=== PATIENT | male | born 1940 | race Caucasian/White ===

== ENCOUNTER → 2017-08-30 09:03 | Outpatient (CLI) | payer MEDICARE, SELFPAY ==
[2017-08-30 10:51] LABS: ALB/GLOB Ratio 0.9 RATIO (0.9-2.4); AST(SGOT) 18 U/L (15-37); Alanine Aminotransfer ALT/SGPT 28 U/L (16-61); Albumin, Serum 3.6 g/dL (3.2-5.0); Alkaline Phosphatase 79 U/L (45-117); Anion Gap 11 (5-15); BUN 30 mg/dL (7-18); BUN/Creat Ratio 17.9 RATIO (10-20); Calcium,Total 9.1 mg/dL (8.5-10.1); Chloride 98 mmol/L (98-107); Cholesterol 156 mg/dL (200); Creatinine, Serum 1.68 mg/dL (0.70-1.30); EST Glomerular Filtration Rate 42 mL/min (>60); Est Glom Filt Rate - Afr Amer 51 mL/min (>60); Globulin 4.1 g/dL (2.2-4.2); Glucose 198 mg/dL (74-106); High Density Lipoprotein 42 mg/dL; Potassium 3.1 mmol/L (3.5-5.1); Protein, Total 7.7 g/dL (6.4-8.2); Sodium Level 137 mmol/L (136-145); Triglycerides 131 mg/dL; Very Low Density Lipoprotein 26 mg/dL (5-40)
[2017-08-30 13:18] LABS: Microalbumin,Random Urine 42.4 mg/L (NO RANGE EST.); Microalbumin:Creatinine Ratio 27.5 mg/g CRE (<30 mg/g CRE)
== END ==
PROVIDERS: Family Provider Family Medicine; PCP Family Medicine; Visit Provider Family Medicine
DX: E11.9 Type 2 diabetes mellitus without complications (principal)
CPT/HCPCS: 36415; 80053; 80061; 82043; 82570

== ENCOUNTER → 2017-09-27 09:15 | Outpatient (CLI) | payer MEDICARE, SELFPAY ==
[2017-09-27 10:48] LABS: Anion Gap 8 (5-15); BUN 29 mg/dL (7-18); BUN/Creat Ratio 17.4 RATIO (10-20); Chloride 103 mmol/L (98-107); Creatinine, Serum 1.67 mg/dL (0.70-1.30); EST Glomerular Filtration Rate 42 mL/min (>60); Est Glom Filt Rate - Afr Amer 51 mL/min (>60); Glucose 141 mg/dL (74-106); Potassium 3.7 mmol/L (3.5-5.1); Sodium Level 141 mmol/L (136-145)
== END ==
PROVIDERS: Family Provider Family Medicine; PCP Family Medicine; Visit Provider Family Medicine
DX: E87.6 Hypokalemia (principal)
CPT/HCPCS: 36415; 80048

== ENCOUNTER → 2018-02-27 09:16 | Outpatient (CLI) | payer MEDICARE, SELFPAY ==
[2018-02-27 10:28] LABS: Hemoglobin A1c 6.5 % (4.2-6.3)
[2018-02-27 10:32] LABS: Anion Gap 11 (5-15); BUN 29 mg/dL (7-18); BUN/Creat Ratio 15.7 RATIO (10-20); Calcium,Total 9.3 mg/dL (8.5-10.1); Chloride 105 mmol/L (98-107); Cholesterol 160 mg/dL (200); Creatinine, Serum 1.85 mg/dL (0.70-1.30); EST Glomerular Filtration Rate 38 mL/min (>60); Est Glom Filt Rate - Afr Amer 46 mL/min (>60); Glucose 189 mg/dL (74-106); High Density Lipoprotein 42 mg/dL; Potassium 3.7 mmol/L (3.5-5.1); Sodium Level 142 mmol/L (136-145); Triglycerides 191 mg/dL; Very Low Density Lipoprotein 38 mg/dL (5-40)
== END ==
PROVIDERS: Family Provider Family Medicine; PCP Family Medicine; Visit Provider Family Medicine
DX: E11.9 Type 2 diabetes mellitus without complications (principal)
CPT/HCPCS: 36415; 80048; 80061; 83036

== ENCOUNTER → 2019-09-02 11:47 | Outpatient (CLI) | payer MEDICARE, SELFPAY ==
[2019-09-02 14:29] LABS: PSA,Total - Annual Screen 0.82 ng/mL (0.00-4.00)
== END ==
PROVIDERS: PCP Family Medicine; Referring Provider Family Medicine; Visit Provider Family Medicine
DX: R35.0 Frequency of micturition (principal)
CPT/HCPCS: 36415; 84153; G0103

== ENCOUNTER → 2019-10-01 09:02 | Outpatient (CLI) | payer MEDICARE, SELFPAY ==
[2019-09-30 09:05] VITALS: BMI 29.0
[2019-09-30 11:11] LABS: Anion Gap 6 (5-15); BUN 30 mg/dL (7-18); BUN/Creat Ratio 19.1 RATIO (10-20); Chloride 106 mmol/L (98-107); Creatinine, Serum 1.57 mg/dL (0.70-1.30); EST Glomerular Filtration Rate 45 mL/min (>60); Est Glom Filt Rate - Afr Amer 55 mL/min (>60); Glucose 162 mg/dL (74-106); Potassium 3.8 mmol/L (3.5-5.1); Sodium Level 141 mmol/L (136-145); Thyroid Stim Hormone (TSH) 2.03 uIU/mL (0.358-3.74)
== END ==
PROVIDERS: PCP Family Medicine; Referring Provider Internal Medicine Cardiovascular Disease; Visit Provider Internal Medicine Cardiovascular Disease
DX: E78.5 Hyperlipidemia, unspecified (principal); I49.9 Cardiac arrhythmia, unspecified
CPT/HCPCS: 36415; 80048; 84443; 93225; 93226

== ENCOUNTER → 2019-10-09 13:56 | Outpatient (CLI) | payer MEDICARE, SELFPAY ==
[2019-09-30 09:05] VITALS: BMI 29.0
--- NOTE | 2019-10-09 14:01 | ECHOD_ITS ---
Reason For Study: Arrhythmia Procedure This was a 2D Doppler, Color Flow transthoracic echocardiogram. Exam performed in department. Left Ventricle Normal LV size. Left ventricular systolic function is normal. The estimated ejection fraction is 65 %. Stage 1 diastolic dysfunction. Right Ventricle Normal RV size. Normal systolic function. Atria Normal left atrium. Normal right atrium. Mitral Valve There is mild mitral annular calcification. Mild (1+) eccentric mitral valve insufficiency. Tricuspid Valve Normal tricuspid valve. Mild tricuspid valve insufficiency. Pulmonary artery systolic pressure is 30 mmHg. Aortic Valve Trisinus/trileaflet aortic valve. Mild focal aortic valve calcification. Mild (1+) eccentric aortic valve insufficiency. Pulmonic Valve The pulmonic valve is not well visualized. Great Vessels Calcified aortic root. The pulmonary artery is normal size. Normal inferior vena cava. Pericardium/Pleural No pericardial effusion. MMode/2D Measurements & Calculations LVIDd: 4.9 cm IVSd: 1.1 cm Ao root diam: 2.9 cm LVIDs: 3.5 cm LVPWd: 1.3 cm RVDd: 3.1 cm FS: 27.9 % LAV(MOD-bp): 30.4 ml LVAd ap4: 21.7 cm2 SV(MOD-sp4): 28.5 ml LAV(MOD-bp) Indexed: 14.9 ml/m2 EDV(MOD-sp4): 48.0 ml LAV(MOD-sp2): 26.2 ml EDV(sp4-el): 49.7 ml LAV(MOD-sp4): 32.4 ml LVAs ap4: 12.0 cm2 ESV(MOD-sp4): 19.5 ml ESV(sp4-el): 18.3 ml EF(MOD-sp4): 59.3 % EF(sp4-el): 63.1 % SV(sp4-el): 31.4 ml LA A4 area: 13.8 cm2 LA dimension(2D): 4.2 cm RA A4 area: 15.3 cm2 Doppler Measurements & Calculations MV E max noah: 60.8 cm/sec Lat Peak E' Noah: 9.5 cm/sec Med Peak E' Noah: 5.5 cm/sec MV A max noah: 94.5 cm/sec E/E' lat: 6.4 E/E' med: 11.1 MV E/A: 0.64 Ao V2 max: 195.5 cm/sec LV V1 max: 112.6 cm/sec PA V2 max: 114.7 cm/sec Ao max P.3 mmHg LV V1 max P.1 mmHg Ao V2 mean: 145.2 cm/sec Ao mean P.2 mmHg Ao V2 VTI: 36.3 cm TR max noah: 260.5 cm/sec TR max P.1 mmHg Interpretation Summary Normal LV size. Left ventricular systolic function is normal. The estimated ejection fraction is 65 %. Stage 1 diastolic dysfunction. There is mild mitral annular calcification. Calcified aortic root. Ordering Physician: Mikhail Siu Referring Physician: Vladimir Healy Performed By: Ofelia Jang, KEO, RVT
== END ==
PROVIDERS: PCP Family Medicine; Referring Provider Internal Medicine Cardiovascular Disease; Visit Provider Internal Medicine Cardiovascular Disease
DX: R00.2 Palpitations (principal); I49.9 Cardiac arrhythmia, unspecified
CPT/HCPCS: 93306

== ENCOUNTER → 2019-11-23 09:50 | Outpatient (CLI) | payer MEDICARE, SELFPAY ==
[2019-09-30 09:05] VITALS: BMI 29.0
[2019-11-23 09:54] LABS: Bacteria 0 SEEN /hpf (None Seen); Mucous, Urine 0 SEEN /hpf (<or=2+); Red Blood Cells-Urine 0 SEEN /hpf (0-5); Squamous Epithelial Cells - UA 0 SEEN /hpf (0-5)
[2019-11-23 12:29] LABS: Color, Urine Yellow (Yellow); Glucose, Dipstick 250 mg/dl (Normal); Ketone-Dipstick Negative (Negative); Leukocyte Esterase-Dipstick Negative /ul (Negative); Nitrite-Dipstick Negative (Negative); Occult Blood-Urine Negative /ul (Negative); Protein-Dipstick Negative (Negative); Urine Bilirubin Dipstick Negative (Negative); Urine Clarity Clear (Clear); Urine Urobilinogen Normal (Normal)
[2019-11-23 12:37] LABS: White Blood Cells 0-5 SEEN /hpf (0-5)
[2019-11-23 12:42] LABS: Anion Gap 6 (5-15); BUN 30 mg/dL (7-18); BUN/Creat Ratio 18.2 RATIO (10-20); Calcium,Total 9.2 mg/dL (8.5-10.1); Chloride 105 mmol/L (98-107); Cholesterol 164 mg/dL (200); Creatinine, Serum 1.65 mg/dL (0.70-1.30); EST Glomerular Filtration Rate 43 mL/min (>60); Est Glom Filt Rate - Afr Amer 52 mL/min (>60); Glucose 145 mg/dL (74-106); High Density Lipoprotein 41 mg/dL; Potassium 3.7 mmol/L (3.5-5.1); Sodium Level 140 mmol/L (136-145); Triglycerides 161 mg/dL; Very Low Density Lipoprotein 32 mg/dL (5-40)
[2019-11-23 12:54] LABS: Hemoglobin A1c 7.2 % (4.2-6.3)
== END ==
PROVIDERS: PCP Family Medicine; Visit Provider Family Medicine
DX: E11.9 Type 2 diabetes mellitus without complications (principal); R35.8 Other polyuria
CPT/HCPCS: 36415; 80048; 80061; 81001; 83036

== ENCOUNTER → 2020-03-14 10:07 | Outpatient (CLI) | payer MEDICARE, SELFPAY ==
[2020-01-07 10:27] VITALS: BMI 28.9
--- NOTE | 2020-03-14 10:12 | RAD_ITS ---
STUDY: X-RAY CHEST REASON FOR EXAM: Male, 79 years old. sob TECHNIQUE: PA and lateral views of the chest. COMPARISON: Prior study of 12/24/2011 FINDINGS: There are fibrotic changes of the left lung base. There is no demonstrated pleural abnormality. Normal size heart. Normal mediastinum and daphne. Normal visualized pulmonary arteries. There are calcified plaques of the thoracic aorta. There are diffuse degenerative changes of the visualized thoracic spine. Normal visualized ribs, clavicles, and shoulders. There is no demonstrated abnormality of the visualized soft tissue structures of the upper abdomen. RAD/Chest PA and Lateral IMPRESSION: Minimal linear fibrosis of the left lung base. Calcified plaques of the thoracic aorta. Degenerative changes of the thoracic spine. No acute cardiopulmonary disease process is seen. Chest findings are stable in the interval. Electronically Signed: Hong Marie MD at 23:53 EDT , Service support ,
== END ==
PROVIDERS: PCP Family Medicine; Referring Provider Family Medicine; Visit Provider Family Medicine
DX: R06.02 Shortness of breath (principal)
CPT/HCPCS: 71046

== ENCOUNTER 2020-04-18 10:39 | Inpatient (IN) | payer MEDICARE, SELFPAY ==
[2020-01-07 10:27] VITALS: BMI 28.9
[2020-04-18] VITALS (15 sets, daily range): BP systolic 100–127; BP diastolic 55–80; PULSE 96–109; RESP 18–27; TEMP 36.6–37.3; O2SAT 92–96; BMI 29.5; BMI 28.9; BMI 29.0
--- NOTE | 2020-04-18 11:27 | EKG12_ITS ---
Test Reason : CP Blood Pressure : / mmHG Vent. Rate : 108 BPM Atrial Rate : 108 BPM P-R Int : 168 ms QRS Dur : 128 ms QT Int : 362 ms P-R-T Axes : 023 -31 116 degrees QTc Int : 485 ms Sinus tachycardia Left axis deviation Non-specific intra-ventricular conduction block Septal infarct , age undetermined T wave abnormality, consider lateral ischemia Abnormal ECG Confirmed by CHIQUITA BAUTISTA, NEVIN ([id number]), editorial manager DINO MARTINS ([id number]) on 04/20/2020 8:29:35 AM Referred By: Confirmed By:NEVIN PORRAS MD
--- NOTE | 2020-04-18 11:29 | ED.VISSUMM ---
- ER Visit Summary Date of Service: 04/18/20 Chief Complaint: Chest pain and shortness of breath History of Present Illness: The patient is a 79 M who presents with chest pain and shortness of breath that is been getting worse over the past 2 weeks. Patient states it is worse with any exertion. Patient states that improves with rest. Patient states the pain is a dull aching. Patient states it is in the substernal area. Patient states it has been constant. Patient states he saw his primary care physician for this and he is scheduled for an outpatient stress test. Patient states the pain became worse and he was unable to wait until his outpatient stress test. Physical Examination: Vital signs are stable except for tachycardia of 109 and tachypnea of 27. Patient is afebrile. Patient is in no acute distress. Oral mucosa is pink and moist. Neck is supple. Trachea is midline. There is no JVD. Heart was regular and tachycardic. Lungs are clear and equal bilaterally. Abdomen is soft. Bowel sounds are normal. There is no tenderness. Extremities are intact. There is no calf tenderness or edema. Cranial nerves II through XII are intact. There are no focal motor or sensory deficits. Test Results: EKG showed sinus tachycardia with a rate of 108. There is some T wave inversion in leads I and aVL which are slightly worse than previous EKG dated 08/16/2010. CBC was within normal limits. Basic metabolic profile showed a elevated BUN and creatinine of 29 and 1.86. Potassium was 3.3. Troponin was elevated at 1.68. D-dimer was elevated at 1.39. Portable chest x-ray was obtained. Emergency Department Course and Treatment: Patient was given aspirin and sublingual nitroglycerin here. Due to the elevated d-dimer, patient was given a dose of Lovenox here. Patient was also placed on nitroglycerin paste. Patient has a HEART score of 8. Case was discussed with the hospitalist. He discussed the case with Dr. Siu. He recommended obtaining a CTA of the chest and giving the patient IV fluids. He will be to evaluate the patient. Patient understood and was agreeable with the plan. All questions were answered. Disposition: Admit to hospital Impression: 1. Non-STEMI 2. Elevated d-dimer This note was generated with [employer] software. It may contain incorrect words, spelling, and punctuation that were not noted in review of the chart prior to signing ED Disposition - Plan for ED Patient: Disposition: Acute Care Hospital [facility] Diagnosis: Non-STEMI (non-ST elevated myocardial infarction), Elevated d-dimer Referrals: Vladimir Healy MD [Primary Care Provider] -
[2020-04-18 11:37] LABS: Absolute Lymphocyte Count 0.43 X10^3/uL (0.83-4.51); Absolute Neutrophil Count 7.5 X10^3/uL (2.0-7.7); Basophil# 0.02 X10^3/uL; Basophil% 0.2 % (0-1); Eosinophil# 0.11 X10^3/uL; Eosinophils% 1.2 % (0-5); Hematocrit 42.3 % (40-54); Lymphocyte # 0.43 X10^3/ul (4.0); Lymphocyte % 4.7 % (19-41); Mean Corp Hgb Conc 33.1 g/dL (32-36); Mean Corpuscular Hgb 30.4 pg (27.0-32.0); Mean Platelet Vol. 10.4 fl (6.2-12.0); Monocyte# 1.13 X10^3/uL; Monocyte% 12.3 % (0-10); NRBC Flagged by Analyzer 0 % (0-5); Neutrophil # 7.49 X10^3/uL (2.7-7.7); Neutrophil % 81.2 % (47-70); POSITIVE DIFFERENTIAL YES; Platelet Count 183 K/mm3 (150-450); RBC Distribution Width CV 13.9 % (11.6-14.6); RBC Distribution Width SD 46.6 fl (35.1-43.9); White Blood Count 9.2 K/mm3 (4.4-11.0)
[2020-04-18 11:38] LABS: Differential Indicated SCAN CRITERIA MET
[2020-04-18 11:41] LABS: Prothrombin Time (Protime)PT. 12.5 SECONDS (11.7-14.9)
[2020-04-18 11:42] LABS: Partial Thromboplast Time 32.4 Seconds (24.1-36.2)
[2020-04-18 11:46] LABS: D-Dimer Quantitative (DVT/PE) 1.39 FEU/ug/m (0.27-0.49)
[2020-04-18 11:52] LABS: Anion Gap 7 (5-15); BUN 29 mg/dL (7-18); BUN/Creat Ratio 15.6 RATIO (10-20); Calcium,Total 9.2 mg/dL (8.5-10.1); Chloride 106 mmol/L (98-107); Creatinine, Serum 1.86 mg/dL (0.70-1.30); EST Glomerular Filtration Rate 37 mL/min (>60); Est Glom Filt Rate - Afr Amer 45 mL/min (>60); Estimated Creatinine Clearance 30.13 ml/min; Glucose 166 mg/dL (74-106); Potassium 3.3 mmol/L (3.5-5.1); Sodium Level 139 mmol/L (136-145)
[2020-04-18 11:59] LABS: Platelet Estimate ADEQUATE (ADEQ); Red Cell Morphology NORM C+C NORMAL (NORM C&C)
--- NOTE | 2020-04-18 12:14 | NURSING ---
HOSPITALIST PAGED DR PORRAS PAGED
[2020-04-18] MEDS: Aspirin 81 MG TAB.CHEW 324 MG PO (12:16)
[2020-04-18] MEDS: Enoxaparin 100 MG/ML Syringe 90 MG SC ×2 (12:17→22:29)
[2020-04-18] MEDS: Nitroglycerin SL (ED/IMG/CATH) 0.4 MG TABLET SUBLINGUAL (12:19)
[2020-04-18] MEDS: Nitroglycerin Oint 1 INCH PACKET TRANSDERM. (12:21)
--- NOTE | 2020-04-18 12:29 | CT_ITS ---
STUDY: CTA CHEST REASON FOR EXAM: Male, 79 years old. CP X 1 WEEK. INCREASE SOB WORSE ON EXERTION. RADIATION DOSAGE (If Supplied By Facility): CTDIvol = ( 14.98 ) mGy, DLP = ( 438.63 ) mGycm TECHNIQUE: The examination was performed with the intravenous administration of IV 100mL Isovue-370. Post-processing of the angiographic images was performed, with multiplanar reformation and 3D reconstruction. Individualized dose optimization techniques were used for this CT. COMPARISON: None. FINDINGS: Normal enhancement of the main pulmonary artery and right and left pulmonary arteries. Normal enhancement of the bilateral peripheral pulmonary arteries. There is no demonstrated pulmonary embolism. There is atherosclerotic calcification of the aortic arch with tortuosity. There is no demonstrated aortic dissection. There are calcifications of the coronary arteries. Cardiomegaly. There are visualized mediastinal lymph nodes, which are within normal size limits, and with normal morphology. Calcified subcarinal lymph node. Normal hilar regions. Normal visualized trachea and bronchi. The lungs are well expanded. Small bilateral pleural effusions with atelectasis at the lung bases. Increased interstitial markings in both lungs suggestive of mild degree of CHF. Normal pleura. Normal chest wall structures. There are degenerative changes of thoracic spine. Normal visualized upper abdomen. CT/CTA Chest W/WO Contrast IMPRESSION: Small bilateral pleural effusions with the bibasilar atelectasis superimposed on mild degree of CHF. Electronically Signed: Matt Aaron, at 13:52 EDT , Service support ,
--- NOTE | 2020-04-18 12:39 | NURSING ---
PCU JAMES NON STEMI, ELEVATED DDIMER
--- NOTE | 2020-04-18 12:55 | RAD_ITS ---
STUDY: X-RAY CHEST REASON FOR EXAM: Male, 79 years old. CHEST PAIN FOR MORE THAN A WEEK. SOB AND PAIN THAT INCREASES WITH EXERTION. TECHNIQUE: Single AP portable view of the chest. COMPARISON: Comparison is made with prior study dated 03/14/2020. FINDINGS: EKG electrodes are seen. Since prior study, there is evidence of increased interstitial markings in both lungs with mild degree of vascular congestion suggestive of CHF. Blunting of the costophrenic angles. There is borderline cardiomegaly. Normal mediastinum and daphne. Normal visualized pulmonary arteries. There is atherosclerotic calcification of the aortic arch with tortuosity. There are diffuse degenerative changes of the visualized thoracic spine. There is degenerative osteoarthritis of the bilateral shoulders. There is no demonstrated abnormality of the visualized soft tissue structures of the upper abdomen. RAD/Chest 1 View (Portable) IMPRESSION: Findings suggestive of a CHF. Electronically Signed: Matt Aaron, at 13:49 EDT , Service support ,
--- NOTE | 2020-04-18 14:21 | ECHOCS_ITS ---
Reason For Study: Dyspnea/SOB Procedure This was a 2D Doppler, Color Flow transthoracic echocardiogram. Contrast injection was performed. Exam performed portable in patient room. Left Ventricle Severely dilated left ventricle. The estimated ejection fraction is 15 %. Stage 2 diastolic dysfunction. There are regional wall motion abnormalities as specified. [place] : Akinetic. Mid- Anterior : Akinetic. Mid-Lateral : Hypokinetic. Basal inferoseptal: Hypokinetic. The rest of the wall segments are normal. Right Ventricle Normal RV size. Normal systolic function. Atria Normal left atrium. Normal right atrium. Mitral Valve Normal mitral valve. Mild-Moderate (1-2+) eccentric mitral valve insufficiency. Tricuspid Valve Normal tricuspid valve. Mild to moderate (1-2+) tricuspid valve insufficiency. Pulmonary artery systolic pressure is 43 mmHg. Aortic Valve Trisinus/trileaflet aortic valve. Mild-Moderate (1-2+) eccentric aortic valve insufficiency. Pulmonic Valve Normal pulmonic valve. Great Vessels Normal aortic root. The pulmonary artery is normal size. Normal inferior vena cava. Pericardium/Pleural No pericardial effusion. Medication Diluted definity 2ml given slow IV push to enhance endocardial definition. MMode/2D Measurements & Calculations LVIDd: 6.4 cm IVSd: 1.1 cm Ao root diam: 2.7 cm LVIDs: 5.9 cm LVPWd: 1.1 cm RVDd: 3.3 cm FS: 8.7 % LAV(MOD-bp): 54.5 ml LVAd ap4: 47.2 cm2 SV(MOD-sp4): 31.4 ml LAV(MOD-bp) Indexed: 27.6 ml/m2 EDV(MOD-sp4): 199.1 ml LAV(MOD-sp2): 59.8 ml EDV(sp4-el): 207.3 ml LAV(MOD-sp4): 46.3 ml LVAs ap4: 42.1 cm2 ESV(MOD-sp4): 167.8 ml ESV(sp4-el): 175.4 ml EF(MOD-sp4): 15.8 % EF(sp4-el): 15.4 % SV(sp4-el): 31.9 ml LA A4 area: 16.8 cm2 LA dimension(2D): 4.6 cm RA A4 area: 11.9 cm2 Doppler Measurements & Calculations MV E max noah: 72.5 cm/sec Lat Peak E' Noah: 5.4 cm/sec Med Peak E' Noah: 3.3 cm/sec MV A max noah: 54.7 cm/sec E/E' lat: 13.4 E/E' med: 22.0 MV E/A: 1.3 Ao V2 max: 167.2 cm/sec LV V1 max: 82.3 cm/sec PA V2 max: 92.1 cm/sec Ao max P.2 mmHg LV V1 max P.7 mmHg Ao V2 mean: 130.6 cm/sec Ao mean P.2 mmHg Ao V2 VTI: 29.5 cm TR max noah: 313.2 cm/sec TR max P.2 mmHg Interpretation Summary Severely dilated left ventricle. The estimated ejection fraction is 15 %. Stage 2 diastolic dysfunction. Pulmonary artery systolic pressure is 43 mmHg. Contrast injection was performed. Ordering Physician: Naresh Valdivia Referring Physician: Vladimir Healy Performed By: Ofelia Jang, KEO, RVT
--- NOTE | 2020-04-18 14:54 | HP.PCM_ITS ---
Problem List (1) Non-STEMI (non-ST elevated myocardial infarction) Status: Acute (2) Elevated d-dimer Status: Acute (3) Premature ventricular contractions Status: Chronic (4) Palpitations Status: Chronic (5) Essential (primary) hypertension Status: Chronic (6) Hyperlipidemia Status: Chronic History of Present Illness Date of Admission: 04/18/20 Chief Complaint: Chest pain. The patient is a 79 year old M who presents emergency room due to chest pain and shortness of breath. Patient states this has been ongoing for the past 3 weeks and worse with exertion. He states his symptoms have worsened over the past 3 weeks and he now has chest pressure and increased shortness of breath with minimal activity. He reports cough overnight. Denies fever, chills. Patient states he thought his shortness of breath was related to his asthma. He denies weight gain or lower extremity swelling. Denies history of heart disease. He has a past medical history of hypertension, hyperlipidemia, type 2 diabetes mellitus, BPH, PVCs. Past Medical History Past Medical History (Chronic Problems): Chronic Problems (Last Reviewed 01/07/20 @ 10:[address] Mikhail Siu MD) Premature ventricular contractions (Chronic) Palpitations (Chronic) Essential (primary) hypertension (Chronic) Hyperlipidemia (Chronic) Medical History: Medical History (Last Reviewed 01/07/20 @ 10:[address] Mikhail Siu MD) Premature ventricular contractions (Chronic) I49.3 Palpitations (Chronic) R00.2 Essential (primary) hypertension (Chronic) I10 Hyperlipidemia (Chronic) E78.5 Type 2 diabetes mellitus without complication E11.9 Irregular heart rate (Resolved) I49.9 Allergies No Known Allergies Allergy (Verified 04/18/20 10:47) Home Medications: Ambulatory Orders Medication Instructions Recorded albuterol sulfate 90 mcg/actuation 2 puff INHALATION Q6H PRN 09/17/19 aerosol inhaler glimepiride 4 mg tablet 4 mg PO DAILY 09/17/19 metformin 500 mg tablet 500 mg PO BID 09/17/19 potassium chloride 10 mEq 10 meq PO DAILY 09/17/19 capsule,extended release tamsulosin 0.4 mg capsule 0.4 mg PO DAILY 09/17/19 triamterene 37.5 1 tab PO DAILY 09/17/19 mg-hydrochlorothiazide 25 mg tablet aspirin 81 mg tablet,delayed 81 mg PO DAILY@0800 09/30/19 release Atorvastatin Calcium [Lipitor] 40 mg PO QHS 04/18/20 Surgical History: Surgical History (Last Reviewed 04/18/20 @ 14:55 by Richa Hatfield NP, CL[facility] CLASSER-C) H/O shoulder surgery Z98.890 History of hernia surgery Z98.890, Z87.19 History of tonsillectomy Z90.89 Hx of cataract surgery Z98.49 Psychiatric History: No pertinent psych hx Lives: Spouse/ Significant Other Smoking Status: Never smoker Tobacco Use: Non-smoker Alcohol: None Drugs: None - *Family History Maternal Family History: Family History (Last Reviewed 01/07/20 @ 10:[address] Mikhail Siu MD) Father CAD (coronary artery disease) Cancer Sister Cancer History Items: - - Denies known maternal medical history including cardiac history. Paternal Family History: Family History (Last Reviewed 01/07/20 @ 10:[address] Mikhail Siu MD) Father CAD (coronary artery disease) Cancer Sister Cancer Review of Systems Constitutional: Denies: Chills, Fever, Weight Change HEENT: Denies: Head Aches, Sinus Congestion, Sinus Drainage Cardiovascular: Reports: Chest Pain Respiratory: Reports: Cough, Shortness of Breath. Denies: Sputum production Gastrointestinal: Denies: Abdominal Pain, Nausea, Vomiting Genitourinary: Denies: Dysuria Musculoskeletal: Denies: Joint Pain, Joint Tenderness Skin: Denies: Rash, Wounds Neurological: Denies: Numbness, Tingling, Focal weakness Psychiatric: Denies: Anxiety, Depression, Homicidal Ideations, Suicidal Ideations Hematologic/ Lymphatic: Denies: Easy Bruising, Easy Bleeding VTE Information - Inpt Only VTE Present on Admission: No VTE Mechan Device Prophylaxis: None VTE Pharm Prophylaxis ordered?: Yes Patient Problems: Active and Suspected Problems (Last Reviewed 01/07/20 @ 10:[address] Mikhail Siu MD) Non-STEMI (non-ST elevated myocardial infarction) (Acute) Elevated d-dimer (Acute) - Physical Exam Vitals/I&O's: Vital Signs Temp Pulse Resp BP Pulse Ox 98.9 F 104 H 20 H 126/70 H 94 04/18/20 14:27 04/18/20 14:27 04/18/20 14:27 04/18/20 14:27 04/18/20 14:36 Oxygen Flow Rate (L/min) 3.5 Oxygen Delivery Method Nasal Cannula Weight: 190 lb 8 oz Body Mass Index (BMI) 28.9 Intake and Output for Last 24 Hours 04/16/20 04/17/20 04/18/20 23:59 23:59 23:59 Intake Total 500 / 500 Balance 500 / 500 General: Alert, Oriented x3, Cooperative HEENT: Atraumatic, PERRLA, EOMI, Normocephalic Neck: Supple, No JVD, Negative Carotid Bruits Lungs: Clear to auscultation, Diminished Cardiovascular: Regular Rhythm, No murmurs, Tachycardic Abdomen: Bowel Sounds Present, Soft, Non Tender, Non-Distended Extremities: No clubbing, No cyanosis, No edema Skin: No rashes, No breakdown Musculoskeletal: No Tenderness to Palpation of Joints or Extremities Neurological: Cranial nerves II-XII grossly intact, Neuro grossly intact Psych/Mental Status: Normal Affect, Appropriate Laboratory Results 04/18/20 10:45: WBC 9.2, RBC 4.60, Hgb 14.0, Hct 42.3, MCV 92.0, MCH 30.4, MCHC 33.1, RDW Std Deviation 46.6 H, RDW Coeff of Kranthi 13.9, Plt Count 183, MPV 10.4, Immature Gran % (Auto) 0.400, Neut % (Auto) 81.2 H, Lymph % (Auto) 4.7 L, [place] % (Auto) 12.3 H, Eos % (Auto) 1.2, Baso % (Auto) 0.2, Absolute Neuts (auto) 7.5, Absolute Lymphs (auto) 0.43 L, Nucleated RBC % 0, Differential Comment , Platelet Estimate ADEQUATE, RBC Morphology NORM C+C 04/18/20 10:45: Sodium 139, Potassium 3.3 L, Chloride 106, Carbon Dioxide 26.0, Anion Gap 7, BUN 29 H, Creatinine 1.86 H, Estim Creat Clear Calc 30.13, Est GFR (MDRD) Af Amer 45 L, Est GFR (MDRD) Non-Af 37 L, BUN/Creatinine Ratio 15.6, Glucose 166 H, Calcium 9.2, Troponin I 1.680 H* 09/28/20 10:45: PT 12.5, INR 1.0, APTT 32.4, D-Dimer Quant (PE/DVT) 1.39 H* 04/18/20 14:50: B-Natriuretic Peptide Pending 04/18/20 14:50: Troponin I Pending Current Medications Acetaminophen (Tylenol) 650 mg PO Q6H PRN PRN PRN Reason: Pain Score 1-10/Temp > 100.7 F Aspirin (Ecotrin) 81 mg PO DAILY@0800 [facility] Atorvastatin Calcium (Lipitor) 40 mg PO QHS [facility] Enoxaparin Sodium (Lovenox) 90 mg SC Q12 [facility] Furosemide (Lasix) 20 mg IV BID@1000,1800 [facility] Glimepiride (Amaryl) 4 mg PO DAILYCM [facility] Morphine Sulfate () 4 mg IV Q3H PRN PRN PRN Reason: Pain Score 1-10/10 Sodium Chloride () 10 - 40 ml IV UD PRN PRN Reason: SALINE FLUSH Tamsulosin HCl (Flomax) 0.4 mg PO DAILY@1730 [facility] Assessment/Plan All Active Problems (Last Reviewed 01/07/20 @ 10:[address] Mikhail Siu MD) Non-STEMI (non-ST elevated myocardial infarction) (Acute) Elevated d-dimer (Acute) Irregular heart rate (Resolved) 1. NSTEMI-cardiology consulted. Continue aspirin, statin, therapeutic Lovenox. Add carvedilol 3.125 mg twice daily. D-dimer elevated. CTA negative for PE. Echocardiogram ordered. Plan for cardiac catheterization in a.m. 2. Acute heart failure with preserved ejection fraction- Echocardiogram September 2019 demonstrated an EF of 65%, stage I diastolic dysfunction. CTA demonstrates small bilateral pleural effusions, mild CHF. BNP 1557. IV Lasix 40 mg twice daily. Strict I&O. Repeat echo ordered as noted above. 3. Chronic kidney disease stage III-slightly above baseline however no acute kidney injury. Trend BMP. 4. Type 2 diabetes mellitus-continue glimepiride. Hold metformin. Accu-Cheks with sliding scale insulin. 5. Hypertension-stable, triamterene/HCTZ on hold. Initiated on carvedilol as noted above. 6. Hyperlipidemia- continue statin. 7. BPH-continue Flomax. DVT prophylaxis- Lovenox sc This patient was seen by BHARATHI Mcdowell under the supervision of Dr. Valdivia.
--- NOTE | 2020-04-18 15:03 | EKG12_ITS ---
Test Reason : C.P. ADMIT Blood Pressure : / mmHG Vent. Rate : 101 BPM Atrial Rate : 101 BPM P-R Int : 170 ms QRS Dur : 118 ms QT Int : 416 ms P-R-T Axes : 018 -11 108 degrees QTc Int : 539 ms Sinus tachycardia with Premature atrial complexes Septal infarct , age undetermined ST & T wave abnormality, consider lateral ischemia Prolonged QT Abnormal ECG Confirmed by RON BAUTISTA, MAL ([id number]), acquisition editor DINO MARTINS ([id number]) on 04/26/2020 9:20:33 AM Referred By: JAVIER Confirmed By:TROY VELASQUEZ MD
--- NOTE | 2020-04-18 15:37 | CASEMGMT ---
According to the [facility] website, the following are in-network tertiary facilities: [facility], [place], [place], [facility], [facility], [place], [facility], and . [facility]
[2020-04-18] MEDS: Furosemide 40 MG/4 ML Vial IV (16:07)
[2020-04-18] MEDS: 0.9% Saline Lock 10 ML Syringe IV (16:07)
[2020-04-18] MEDS: Tamsulosin HCl 0.4 MG Capsule PO (16:10)
[2020-04-18 16:30] LABS: Bedside Glucose 188 mg/dL (70-110)
--- NOTE | 2020-04-18 18:44 | CON.PCM_ITS ---
Reason for Consult Date of Consultation: 04/18/20 Reason for Consultation: Shortness of breath History of Present Illness: The patient is a 79 year old M with a previous history of hypertension premature ventricular complexes who presented to the emergency room after experiencing chest discomfort and shortness of breath which he says has been going on for approximately 3 weeks. He has had some orthopnea some paroxysmal nocturnal dyspnea and a cough. He is not had any pedal edema. He has had no dizziness near syncope or syncope. In the emergency room he was noted to have some renal dysfunction, no definitive EKG changes but an elevated natruretic peptide and d- dimer. He underwent a CT scan of his chest which did not demonstrate any evidence of pulmonary embolism. Due to his abnormal natruretic peptide cardiology was called to see him. He has had a cough which has been somewhat productive. [] Past Medical History Allergies/Adverse Reactions: Allergies No Known Allergies Allergy (Verified 04/18/20 10:47) Home Medications: Ambulatory Orders Medication Instructions Recorded albuterol sulfate 90 mcg/actuation 2 puff INHALATION Q6H PRN 09/17/19 aerosol inhaler glimepiride 4 mg tablet 4 mg PO DAILY 09/17/19 metformin 500 mg tablet 500 mg PO BID 09/17/19 potassium chloride 10 mEq 10 meq PO DAILY 09/17/19 capsule,extended release tamsulosin 0.4 mg capsule 0.4 mg PO DAILY 09/17/19 triamterene 37.5 1 tab PO DAILY 09/17/19 mg-hydrochlorothiazide 25 mg tablet aspirin 81 mg tablet,delayed 81 mg PO DAILY@0800 09/30/19 release Atorvastatin Calcium [Lipitor] 40 mg PO QHS 04/18/20 Past Medical History (Chronic Problems): Chronic Problems (Last Reviewed 01/07/20 @ 10:[address] Mikhail Siu MD) Premature ventricular contractions (Chronic) Palpitations (Chronic) Essential (primary) hypertension (Chronic) Hyperlipidemia (Chronic) Surgical History: cataract Psychiatric History: No pertinent psych hx - *Family History Maternal Family History: Family History (Last Reviewed 01/07/20 @ 10:[address] Mikhail Siu MD) Father CAD (coronary artery disease) Cancer Sister Cancer History Items: - - Denies known maternal medical history including cardiac history. Paternal Family History: Family History (Last Reviewed 01/07/20 @ 10:[address] Mikhail Siu MD) Father CAD (coronary artery disease) Cancer Sister Cancer Lives: Spouse/ Significant Other Smoking Status: Never smoker Tobacco Use: Non-smoker Alcohol: None Drugs: None Review of Systems - Review of Systems General: Reports: Fatigue. Denies: Fever, Night Sweats HEENT: Denies: Vision Change Cardiovascular: Reports: Chest Discomfort, Chest Pressure, Shortness of Breath, Shortness of Breath with Exertion, Orthopnea, PND. Denies: Peripheral Edema, Palpitations, Lightheadedness, Dizziness, Near Syncope, Syncope Respiratory: Denies: Cough, Sputum Production, Hemoptysis Gastrointestinal: Denies: Hematemesis, Hematochezia, Melena Genitourinary: Denies: Dysuria, Hematuria Muscoloskeletal: Denies: Myalgias Skin: Denies: Rash Neurological: Denies: Dizziness Psychiatric: Denies: Anxiety Endocrine: Denies: Heat Intolerance Hematologic/ Lymphatic: Denies: Lymph Node Enlargement Subjectve: Pleasant gentleman in no distress Objective: Vital Signs Temp Pulse Resp BP Pulse Ox 99.1 F 109 H 20 H 105/66 95 04/18/20 17:57 04/18/20 17:57 04/18/20 17:57 04/18/20 17:57 04/18/20 17:57 Oxygen Flow Rate (L/min) 4 Oxygen Delivery Method Nasal Cannula Weight: 190 lb 8 oz Body Mass Index (BMI) 28.9 Intake and Output for Last 24 Hours 04/16/20 04/17/20 04/18/20 23:59 23:59 23:59 Intake Total 1140 / 1140 Output Total 650 / 650 Balance 490 / 490 General: Awake, Alert, Oriented x 3 HEENT: PERRL, EOMI, Sclera Non Icteric Neck: Supple, Good ROM, No Lymph Node Enlargement Lungs: Diminished Mert Bases Cardiovascular: Regular Rhythm, Normal S1, Normal S2, No Murmurs, No Rubs, No Gallops Vascular: No Carotid Bruits, Normal Femoral Pulses, Normal Radial Pulses, Normal Dorsalis Pedal Pulse, Normal Posterior Tibial Pulses Abdomen: Bowel Sounds Present, Soft, Non Tender, No HSM, No Organomegaly Extremities: No Cyanosis, No Clubbing, No edema Musculoskeletal: No Erythema Lymphatic: No Lymph Node Enlargement Neurological: No Focal Motor or Sensory Deficit Psych/Mental Status: Appropriate 04/18/20 10:45: WBC 9.2, RBC 4.60, Hgb 14.0, Hct 42.3, MCV 92.0, MCH 30.4, MCHC 33.1, Plt Count 183, MPV 10.4, Immature Gran % (Auto) 0.400, Neut % (Auto) 81.2 H, Lymph % (Auto) 4.7 L, Roosevelt % (Auto) 12.3 H, Eos % (Auto) 1.2, Baso % (Auto) 0.2, Absolute Neuts (auto) 7.5, Nucleated RBC % 0 04/18/20 10:45: Sodium 139, Potassium 3.3 L, Chloride 106, Carbon Dioxide 26.0, Anion Gap 7, BUN 29 H, Creatinine 1.86 H, Est GFR (MDRD) Af Amer 45 L, Est GFR (MDRD) Non-Af 37 L, BUN/Creatinine Ratio 15.6, Glucose 166 H, Calcium 9.2, Troponin I 1.680 H* 04/18/20 10:45: PT 12.5, INR 1.0, APTT 32.4, D-Dimer Quant (PE/DVT) 1.39 H* 04/18/20 14:50: B-Natriuretic Peptide 1557.8 H 04/18/20 14:50: Troponin I 1.820 H* 04/18/20 17:40: Troponin I 1.880 H* Rhythm: EKG: Normal sinus rhythm with no acute changes ECHO: Severely reduced left ventricular systolic function with an akinetic anterior wall, estimated ejection fraction of 15% inferior posterior wall. Stress Test: Cardiac Cath: PCI: CT Surgery: Holter monitor: EPS: PPM: CXR: Chest CT Scan: Assessment/Plan 1. Non-ST elevation myocardial infarction * Patient presents with chest discomfort and is noted to have an abnormal cardiac enzyme pattern. The above is consistent with a non-ST elevation myocardial infarction. It appears that he may have sustained this infarction sometime within the last 3 weeks. At this juncture I would suggest that we pursue a left heart catheterization. Depending on the findings further recommendations will be made. * He will be started on the low-dose beta-nelson for now * Aspirin * Continue high intensity statin * 2. Acute congestive systolic heart failure * He does have evidence of systolic heart failure. His echocardiogram de monstrated an ejection fraction of 15% with wall motion abnormalities. The etiology of the above is likely secondary to coronary artery disease. * Would recommend a cardiac catheterization to further elucidate the above * Start carvedilol 3.125 mg twice a day * Diurese with intravenous Lasix * Depending on the findings of the cardiac catheterization further recommendations will be made. * 3. Renal dysfunction * He does appear to have significant renal dysfunction. We will cautiously titrate his diuretic dose. * BRIGHT inhibitor is will be held at this present time. * * Thank you for allowing me to participate in the care of your patient. Please don't hesitate to call if any issues arise.
--- NOTE | 2020-04-18 19:00 | NURSING ---
PATIENT ON 4LNC WHEN THIS RN CAME ON SHIFT.
[2020-04-18 19:20] LABS: Magnesium 1.7 mg/dL (1.6-2.6)
[2020-04-18] MEDS: Carvedilol 3.125 MG TABLET PO (22:30)
[2020-04-18] MEDS: Atorvastatin Calcium 40 MG Tablet PO (22:30)
[2020-04-18] MEDS: 0.9% Normal Saline 1,000 ML 15 ML IV (22:37)
--- NOTE | 2020-04-18 22:41 | NURSING ---
PATIENT PLACED ON HIGH FLOW OXYGEN AT 6LNC
[2020-04-19] VITALS (11 sets, daily range): BP systolic 96–110; BP diastolic 57–63; PULSE 90–102; RESP 18–24; TEMP 36.8–37.2; O2SAT 93–97
[2020-04-19 00:20] LABS: Bedside Glucose 197 mg/dL (70-110)
--- NOTE | 2020-04-19 05:50 | EKG12_ITS ---
Test Reason : AM EKG Blood Pressure : / mmHG Vent. Rate : 098 BPM Atrial Rate : 098 BPM P-R Int : 166 ms QRS Dur : 126 ms QT Int : 380 ms P-R-T Axes : 019 -03 100 degrees QTc Int : 485 ms Normal sinus rhythm Non-specific intra-ventricular conduction block T wave abnormality, consider lateral ischemia Abnormal ECG When compared with ECG of 18-APR-2020 10:41, MANUAL COMPARISON REQUIRED, DATA IS UNCONFIRMED Confirmed by CHIQUITA BAUTISTA, NEVIN ([id number]), technical editor DINO MARTINS ([id number]) on 05/23/2020 1:48:13 PM Referred By: JAMES Confirmed By:NEVIN PORRAS MD
[2020-04-19 06:13] LABS: Anion Gap 8 (5-15); BUN 36 mg/dL (7-18); BUN/Creat Ratio 17.1 RATIO (10-20); Calcium,Total 8.7 mg/dL (8.5-10.1); Chloride 106 mmol/L (98-107); EST Glomerular Filtration Rate 32 mL/min (>60); Est Glom Filt Rate - Afr Amer 39 mL/min (>60); Estimated Creatinine Clearance 26.69 ml/min; Glucose 171 mg/dL (74-106); Potassium 3.6 mmol/L (3.5-5.1); Sodium Level 139 mmol/L (136-145)
[2020-04-19] MEDS: Carvedilol 3.125 MG TABLET PO (06:36)
[2020-04-19] MEDS: Aspirin E.C. 81 MG Tablet PO (06:36)
[2020-04-19] MEDS: 0.9% Saline Lock 10 ML Syringe IV ×2 (06:36→10:31)
[2020-04-19 07:00] LABS: Bedside Glucose 187 mg/dL (70-110)
--- NOTE | 2020-04-19 10:25 | CASEMGMT ---
ROB VERNON Assessment: Face to Face with patient for initial transition planning/care coordination assessment. RN SAULO introduced self and role at [facility], pt voices understanding and consents to assessment at this time. Pt is lying in bed in no distress at this time. Pt is A/Ox4 at this time and answers all questions appropriately at this time. Care providers, pharmacy, and demographics verified at this time. Presentation: Chest pain for more than a week. SOB/pain that increased with exertion Admitting dx: NSTEMI, elevated ddimer PCP: Niraj Specialists: Sherron cardio Preferred [facility]acy: [facility] Insurance: [facility] Prescription Benefit: [facility] Living Will/HPOA: Pt states has a LW/HPOA and is aware that they are not on file at [facility] at this time. Pt states his , Trisha Yañez, is HPOA. LNOK: Trisha Yañez, ; Jordan Yañez, son Living Arrangements: Pt states lives with on main level of 2 story home and states no concerns at home at this time. Pt states is independent with ADL's. Transportation: Pt states drives self and states no transportation concerns at this time. DME/HHC: Pt states has the following DME but does no use currently: cane, walker, and w/c. Pt states no need for any further DME. Pt states no hx of HHC or SNF in the past. Pt states no concerns with going home at time of discharge. Pt states is retired. Pt states does not smoke cigarettes or drink ETOH. Pt states no further concerns/needs at this time. CM to follow for any further discharge planning/needs. Advised pt to ask for CM if any further questions/concerns/needs arise, voices understanding. Pt Goal: Home Plan: Home, pending cath results. [place]en ROB VERNON
--- NOTE | 2020-04-19 11:03 | PN_ITS ---
Patient Problems: Active and Suspected Problems (Last Reviewed 01/07/20 @ 10:[address] Mikhail Siu MD) Non-STEMI (non-ST elevated myocardial infarction) (Acute) Elevated d-dimer (Acute) Subjective: Patient seen and examined. Denies further chest pain overnight. Continues to have shortness of breath however reports some improvement. Plan for heart cath later today. - Physical Exam Vitals/I&O's: Vital Signs Temp Pulse Resp BP Pulse Ox 98.4 F 90 20 H 98/58 L 95 04/19/20 10:30 04/19/20 10:30 04/19/20 10:30 04/19/20 10:30 04/19/20 10:30 Oxygen Flow Rate (L/min) 4 Oxygen Delivery Method Nasal Cannula Weight: 184 lb 11.958 oz Body Mass Index (BMI) 28.9 Intake and Output for Last 24 Hours 04/17/20 04/18/20 04/19/20 23:59 23:59 23:59 Intake Total 1140 / 1340 200 / 200 Output Total 650 / 1275 1125 / 1125 Balance 490 / 65 -925 / -925 General: Alert, Oriented x3, Cooperative HEENT: Atraumatic, PERRLA, EOMI, Normocephalic Neck: Supple, No JVD, Negative Carotid Bruits Lungs: Clear to auscultation, Normal air movement Cardiovascular: Regular rate, No murmurs Abdomen: Bowel Sounds Present, Soft, Non Tender Extremities: No clubbing, No cyanosis, No edema, Capillary Refill Less than 3 Seconds Skin: No rashes, No breakdown Musculoskeletal: No Tenderness to Palpation of Joints or Extremities Neurological: Cranial nerves II-XII grossly intact, Neuro grossly intact Psych/Mental Status: Normal Affect, Appropriate Laboratory Results 04/18/20 10:45: WBC 9.2, RBC 4.60, Hgb 14.0, Hct 42.3, MCV 92.0, MCH 30.4, MCHC 33.1, RDW Std Deviation 46.6 H, RDW Coeff of Kranthi 13.9, Plt Count 183, MPV 10.4, Immature Gran % (Auto) 0.400, Neut % (Auto) 81.2 H, Lymph % (Auto) 4.7 L, [place] % (Auto) 12.3 H, Eos % (Auto) 1.2, Baso % (Auto) 0.2, Absolute Neuts (auto) 7.5, Absolute Lymphs (auto) 0.43 L, Nucleated RBC % 0, Differential Comment , Platelet Estimate ADEQUATE, RBC Morphology NORM C+C 04/18/20 10:45: Sodium 139, Potassium 3.3 L, Chloride 106, Carbon Dioxide 26.0, Anion Gap 7, BUN 29 H, Creatinine 1.86 H, Estim Creat Clear Calc 30.13, Est GFR (MDRD) Af Amer 45 L, Est GFR (MDRD) Non-Af 37 L, BUN/Creatinine Ratio 15.6, Glucose 166 H, Calcium 9.2, Troponin I 1.680 H* 04/18/20 10:45: PT 12.5, INR 1.0, APTT 32.4, D-Dimer Quant (PE/DVT) 1.39 H* 04/18/20 14:50: B-Natriuretic Peptide 1557.8 H 04/18/20 14:50: Troponin I 1.820 H* 04/18/20 16:18: POC Glucose 188 H 04/18/20 17:40: Troponin I 1.880 H* 04/18/20 17:40: Magnesium 1.7 04/18/20 22:26: POC Glucose 197 H 04/19/20 05:28: Sodium 139, Potassium 3.6, Chloride 106, Carbon Dioxide 25.0, Anion Gap 8, BUN 36 H, Creatinine 2.10 H, Estim Creat Clear Calc 26.69, Est GFR (MDRD) Af Amer 39 L, Est GFR (MDRD) Non-Af 32 L, BUN/Creatinine Ratio 17.1, Glucose 171 H, Calcium 8.7 04/19/20 06:39: POC Glucose 187 H Current Medications Acetaminophen (Tylenol) 650 mg PO Q6H PRN PRN PRN Reason: Pain Score 1-10/Temp > 100.7 F Aspirin (Ecotrin) 81 mg PO DAILY@0800 [facility] Last Admin: 04/19/20 06:36 Dose: 81 mg Documented by: Atorvastatin Calcium (Lipitor) 40 mg PO QHS [facility] Last Admin: 04/18/20 22:30 Dose: 40 mg Documented by: Carvedilol (Coreg) 3.125 mg PO BID [facility] Last Admin: 04/19/20 06:36 Dose: 3.125 mg Documented by: Enoxaparin Sodium (Lovenox) 90 mg SC Q12 [facility] Last Admin: 04/18/20 22:29 Dose: 90 mg Documented by: Furosemide (Lasix) 40 mg IV BID@1000,1800 VALERIA Glimepiride (Amaryl) 4 mg PO DAILYCM [facility] Sodium Chloride () 1,000 mls @ 0 mls/hr IV .Q0M [facility] Last Infusion: 04/18/20 22:37 Dose: 0 mls/hr Documented by: Insulin Human Lispro (Humalog Kwikpen (Bkc)) 0 unit SC ACHS [facility]; Protocol Last Admin: 04/19/20 05:41 Dose: Not Given Documented by: Morphine Sulfate () 4 mg IV Q3H PRN PRN PRN Reason: Pain Score 1-10/10 Potassium Chloride (K-Dur) 40 meq PO DAILYCM [facility] Sodium Chloride () 10 - 40 ml IV UD PRN PRN Reason: SALINE FLUSH Last Admin: 04/19/20 10:31 Dose: 10 ml Documented by: Tamsulosin HCl (Flomax) 0.4 mg PO DAILY@1730 [facility] Last Admin: 04/18/20 16:10 Dose: 0.4 mg Documented by: Medical Necessity - Tobacco Use Smoking Status: Never smoker Tobacco Use: Non-smoker Assessment/Plan All Active Problems (Last Reviewed 01/07/20 @ 10:[address] Mikhail Siu MD) Non-STEMI (non-ST elevated myocardial infarction) (Acute) Elevated d-dimer (Acute) Irregular heart rate (Resolved) 1. NSTEMI-cardiology consulted. Continue aspirin, statin, therapeutic Lovenox. Continue carvedilol 3.125 mg twice daily. D-dimer elevated. CTA negative for PE. Echocardiogram demonstrates an EF of 15%, stage II diastolic dysfunction, pulmonary artery systolic pressure 43 mmHg. Patient to undergo heart cath later today. Hold Lovenox prior to cath. 2. Acute heart failure with reduced ejection fraction- Echocardiogram September 2019 demonstrated an EF of 65%, stage I diastolic dysfunction. CTA demonstrates small bilateral pleural effusions, mild CHF. BNP 1557. Repeat echo with EF 15% as noted above. Will use caution with IV Lasix given worsening renal function. Strict I&O. Daily weight. 3. Chronic kidney disease stage III-worsening. Monitor closely, trend BMP. 4. Acute hypoxic respiratory insufficiency-secondary to acute heart failure with reduced ejection fraction. Not documented to be hypoxic however patient now requiring 5 L nasal cannula. Continue supplement oxygen to maintain O2 sat above 90%. Walking pulse ox prior to discharge. 5. Type 2 diabetes mellitus-continue glimepiride. Hold metformin. Accu-Cheks with sliding scale insulin. 6. Hypertension-stable, triamterene/HCTZ on hold. Initiated on carvedilol as noted above. 7. Hyperlipidemia- continue statin. 8. BPH-continue Flomax. DVT prophylaxis- Lovenox sc This patient was seen by BHARATHI Mcdowell under the supervision of Dr. Valdivia.
--- NOTE | 2020-04-19 11:38 | NURSING ---
Report called to ROB Saravia in blood bank laboratory technologist
--- NOTE | 2020-04-19 11:46 | CPS ---
STARTED BY NURSING
--- NOTE | 2020-04-19 12:42 | PN.CARD_ITS ---
Subjectve: Patient seen and evaluated. Objective: Vital Signs Temp Pulse Resp BP Pulse Ox 98.4 F 90 20 H 98/58 L 95 04/19/20 10:30 04/19/20 10:30 04/19/20 10:30 04/19/20 10:30 04/19/20 10:30 Oxygen Flow Rate (L/min) 4 Oxygen Delivery Method Nasal Cannula Weight: 184 lb 11.958 oz Body Mass Index (BMI) 28.9 Intake and Output for Last 24 Hours 04/17/20 04/18/20 04/19/20 23:59 23:59 23:59 Intake Total 1140 / 1340 200 / 200 Output Total 650 / 1275 1425 / 1425 Balance 490 / 65 -1225 / -1225 General: Awake, Alert, Oriented x 3 HEENT: PERRL, EOMI, Sclera Non Icteric Neck: Supple, Good ROM, No Lymph Node Enlargement Lungs: Clear to auscultation Cardiovascular: Regular Rhythm, Normal S1, Normal S2, No Murmurs, No Rubs, No Gallops Vascular: No Carotid Bruits, Normal Femoral Pulses, Normal Radial Pulses, Normal Dorsalis Pedal Pulse, Normal Posterior Tibial Pulses Abdomen: Bowel Sounds Present, Soft, Non Tender, No HSM, No Organomegaly Extremities: No Cyanosis, No Clubbing, No edema Neurological: No Focal Motor or Sensory Deficit 04/18/20 14:50: B-Natriuretic Peptide 1557.8 H 04/18/20 14:50: Troponin I 1.820 H* 04/18/20 17:40: Troponin I 1.880 H* 04/18/20 17:40: Magnesium 1.7 04/19/20 05:28: Sodium 139, Potassium 3.6, Chloride 106, Carbon Dioxide 25.0, Anion Gap 8, BUN 36 H, Creatinine 2.10 H, Est GFR (MDRD) Af Amer 39 L, Est GFR (MDRD) Non-Af 32 L, BUN/Creatinine Ratio 17.1, Glucose 171 H, Calcium 8.7 Rhythm: EKG: ECHO: Stress Test: Cardiac Cath: PCI: CT Surgery: Holter monitor: EPS: PPM: CXR: Chest CT Scan: Medical Necessity - Tobacco Use Smoking Status: Never smoker Tobacco Use: Non-smoker Assessment/Plan 1. Non-ST elevation myocardial infarction * Patient presents with chest discomfort and is noted to have an abnormal cardiac enzyme pattern. The above is consistent with a non-ST elevation myocardial infarction. It appears that he may have sustained this infarction sometime within the last 3 weeks. * Cardiac catheterization today demonstrated the following: Distal 95% left main stenosis. Left anterior descending artery with mild disease. Left circumflex artery with mild disease. Dominant large right coronary artery with diffuse disease. Based on the above angiographic findings the patient will be transferred urgently to a tertiary care facility. An intra-aortic balloon pump was placed. * 2. Acute congestive systolic heart failure * He does have evidence of systolic heart failure. His echocardiogram demonstrated an ejection fraction of 15% with wall motion abnormalities. The etiology of the above is likely secondary to coronary artery disease. * Would recommend a cardiac catheterization to further elucidate the above * Start carvedilol 3.125 mg twice a day * Diurese with intravenous Lasix * 3. Renal dysfunction * He does appear to have significant renal dysfunction. We will cautiously titrate his diuretic dose. * BRIGHT inhibitor is will be held at this present time. * * Thank you for allowing me to participate in the care of your patient. Please don't hesitate to call if any issues arise.
--- NOTE | 2020-04-19 12:56 | CL.D_ITS ---
Patient Name: NICOLE OCAMPO Study Date: 04/19/2020 Performing: Mikhail Siu MD Ht: 68.11 inches 173 cm : 1940 Wt: 185.19 lbs 84 kg Age: 79 Gender: male BSA: 1.98 PROCEDURE(S) PERFORMED [id number] INSERTION CLINICAL PROFILE AND INDICATIONS Indications: ACS <= 24 hrs Heart Failure: NYHA Class: 3, Newly Diagnosed: Yes, Heart Failure Type: Systolic Stress/Imaging Stress/Image Study Performed: No CAD Presentations: Unstable angina. CONCLUSIONS Severe coronary artery severe coronary artery disease with 95% distal left main coronary stenosis. L arge dominant right coronary artery with luminal irregularities. Severe left ventricular systolic dy sfunction. Patient noted to be hypotensive. And tachycardic. RECOMMENDATIONS Surgery consult for coronary revascularization IABP placed DESCRIPTION OF PROCEDURE The patient arrived to the procedure lab. The risks and benefits of the procedure as well as a full d escription of our services here and current unavailability of surgical backup were fully explained to the patient and/or their significant other prior to the catheterization. The Timeout was completed, verifying the correct patient and procedure. The patient's procedural site was prepped and draped in the usual fashion. Local anesthetic was given subcutaneously to right radial region with Lidocaine 2% . Using a modified Seldinger technique, arterial access was obtained via the right radial artery, a 6 Fr sheath was inserted. Left Coronary Artery selective angiography was performed in multiple views u sing a 5 Fr. 4.0 [place] catheter. Right Coronary Artery selective angiography was then performed in mu ltiple views using a 5 Fr. 4.0 [place] catheter.Arrow 40cc 7.5F UltraFlex IABP - Qty: 1 Each Part #: [id number], A 40cc IABP catheter was inserted into the right femoral artery, IABP settings: 1:1, IABP Augumented BP: 101 mmHg Systemic BP: 87 mmHg, The IABP catheter and sheath were secured in place CORONARY ANGIOGRAPHY DOMINANCE: Right Dominant LEFT HEART ASSESSMENT Left Ventricular Ejection Fraction: by Echo 15 % Anterior Akinesis Depressed Left Ventricular systolic function LEFT MAIN: Distal 95 % LEFT ANTERIOR DESCENDING ARTERY: Moderate luminal irregularities up to 50% CIRCUMFLEX ARTERY: Mild luminal irregularities less than 30% RIGHT CORONARY ARTERY: Mild luminal irregularities less than 30% COMPLICATIONS No Complications PROCEDURE MEDICATIONS Fentanyl 50 mcg IV Versed 1 mg IV Oxygen: 2 L/min via nasal cannula Heparin diluted in 23cc Heparinized saline. Patient given 10cc IA of this solution. 04/19/2020 12:15: 45 Heparin 25,000u / 250ml D5W @ 800 u/hr IV started 04/19/2020 12:37:05 Verapamil 2.5mg, Ntg 100mcgs, 2000 units of Heparin diluted in 23cc Heparinized saline. Patient give n 10cc IA of this solution. 04/19/2020 12:15:45 SUMMARY OF HEMODYNAMIC DATA Time AIR REST ECG 11:55:05 LV 93/13, 27 12:18:44 LVp 93/15, 28 12:19:10 AOp 84/55 (68) 12:19:15 AO 79/51 (64) SA 12:19:52 Signed By Mikhail Siu MD On 04/19/2020 12:55:21 Mikhail Siu MD
--- NOTE | 2020-04-19 13:45 | PCM.DC.SUM ---
Discharge Date and Diagnosis Date of Admission: 04/18/20 Date of Discharge: 04/19/20 - Primary Discharge Diagnosis Acute Problems: Active Problems (Last Reviewed 01/07/20 @ 10:[address] Mikhail Siu MD) 1. NSTEMI, severe coronary artery disease with 95% distal left main coronary stenosis 2. 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 Chronic kidney disease stage III 4. Acute hypoxic respiratory insufficiency-secondary to acute heart failure with reduced ejection fraction. 5. Type 2 diabetes mellitus 6. Hypertension 7. Hyperlipidemia 8. BPH - Secondary Discharge Diagnosis Chronic Problems: Chronic Problems (Last Reviewed 01/07/20 @ 10:[address] Mikhail Siu MD) Premature ventricular contractions (Chronic) Palpitations (Chronic) Essential (primary) hypertension (Chronic) Hyperlipidemia (Chronic) Hospital Course and Treatment Imaging Results: Diagnostic Data Chest CTA 04/18/20 12:29 IMPRESSION: Small bilateral pleural effusions with the bibasilar atelectasis superimposed on mild degree of CHF. Electronically Signed: Matt Aaron, at 13:52 EDT , Service support , Chest X-Ray 04/18/20 12:55 IMPRESSION: Findings suggestive of a CHF. Electronically Signed: Matt Aaron, at 13:49 EDT , Service support , Dr. Siu- Cardiology Operations: None Procedures: 2-D Echocardiogram, Cardiac catheterization Summary of Care Provided: The patient is a 79 year old M admitted 04/18/2020 due to chest pain. 1. NSTEMI-cardiology consulted. Continue aspirin, statin, carvedilol 3.125 mg twice daily. D-dimer elevated. CTA negative for PE. Echocardiogram demonstrates an EF of 15%, stage II diastolic dysfunction, pulmonary artery systolic pressure 43 mmHg. Patient underwent cardiac catheterization which demonstrated severe coronary artery disease with 95% distal left main coronary stenosis. Referred to tertiary facility for coronary revascularization. 2. Acute heart failure with reduced ejection fraction- Echocardiogram September 2019 demonstrated an EF of 65%, stage I diastolic dysfunction. CTA demonstrates small bilateral pleural effusions, mild CHF. BNP 1557. Repeat echo with EF 15% as noted above. Will use caution with IV Lasix given worsening renal function. Strict I&O. Daily weight. 3. Chronic kidney disease stage III-worsening. Monitor closely, trend BMP. 4. Acute hypoxic respiratory insufficiency-secondary to acute heart failure with reduced ejection fraction. Not documented to be hypoxic however patient now requiring 5 L nasal cannula. Continue supplement oxygen to maintain O2 sat above 90%. 5. Type 2 diabetes mellitus-continue glimepiride. Hold metformin. Accu-Cheks with sliding scale insulin. 6. Hypertension-stable, triamterene/HCTZ on hold. Initiated on carvedilol as noted above. 7. Hyperlipidemia- continue statin. 8. BPH-continue Flomax. General: Alert, Oriented x3, Cooperative HEENT: Atraumatic, PERRLA, EOMI, Normocephalic Neck: Supple, No JVD, Negative Carotid Bruits Lungs: Clear to auscultation, Normal air movement Cardiovascular: Regular rate, No murmurs Abdomen: Bowel Sounds Present, Soft, Non Tender Extremities: No clubbing, No cyanosis, No edema, Capillary Refill Less than 3 Seconds Skin: No rashes, No breakdown Musculoskeletal: No Tenderness to Palpation of Joints or Extremities Neurological: Cranial nerves II-XII grossly intact, Neuro grossly intact Psych/Mental Status: Normal Affect, Appropriate Patient seen and examined prior to discharge. Physical assessment as noted above. Patient is stable for discharge with follow up recommendations as noted above. This patient was seen by BHARATHI Mcdowell under the supervision of Dr. Valdivia. - Physical Exam Vitals/I&O's: Vital Signs Temp Pulse Resp BP Pulse Ox 98.4 F 90 20 H 98/58 L 95 04/19/20 10:30 04/19/20 10:30 04/19/20 10:30 04/19/20 10:30 04/19/20 10:30 Oxygen Flow Rate (L/min) 4 Oxygen Delivery Method Nasal Cannula Weight: 184 lb 11.958 oz Body Mass Index (BMI) 28.9 Intake and Output for Last 24 Hours 04/17/20 04/18/20 04/19/20 23:59 23:59 23:59 Intake Total 1140 / 1340 200 / 200 Output Total 650 / 1275 1425 / 1425 Balance 490 / 65 -1225 / -1225 Laboratory Results 04/18/20 14:50: B-Natriuretic Peptide 1557.8 H 04/18/20 14:50: Troponin I 1.820 H* 04/18/20 16:18: POC Glucose 188 H 04/18/20 17:40: Troponin I 1.880 H* 04/18/20 17:40: Magnesium 1.7 04/18/20 22:26: POC Glucose 197 H 04/19/20 05:28: Sodium 139, Potassium 3.6, Chloride 106, Carbon Dioxide 25.0, Anion Gap 8, BUN 36 H, Creatinine 2.10 H, Estim Creat Clear Calc 26.69, Est GFR (MDRD) Af Amer 39 L, Est GFR (MDRD) Non-Af 32 L, BUN/Creatinine Ratio 17.1, Glucose 171 H, Calcium 8.7 04/19/20 06:39: POC Glucose 187 H Current Medications Acetaminophen (Tylenol) 650 mg PO Q6H PRN PRN PRN Reason: Pain Score 1-10/Temp > 100.7 F Aspirin (Ecotrin) 81 mg PO DAILY@0800 [facility] Last Admin: 04/19/20 06:36 Dose: 81 mg Documented by: Atorvastatin Calcium (Lipitor) 40 mg PO QHS [facility] Last Admin: 04/18/20 22:30 Dose: 40 mg Documented by: Carvedilol (Coreg) 3.125 mg PO BID [facility] Last Admin: 04/19/20 06:36 Dose: 3.125 mg Documented by: Enoxaparin Sodium (Lovenox) 90 mg SC Q12 [facility] Last Admin: 04/18/20 22:29 Dose: 90 mg Documented by: Furosemide (Lasix) 40 mg IV BID@1000,1800 [facility] Glimepiride (Amaryl) 4 mg PO DAILYCM [facility] Sodium Chloride () 1,000 mls @ 0 mls/hr IV .Q0M [facility] Last Infusion: 04/18/20 22:37 Dose: 0 mls/hr Documented by: Insulin Human Lispro (Humalog Kwikpen (Bkc)) 0 unit SC ACHS [facility]; Protocol Last Admin: 04/19/20 05:41 Dose: Not Given Documented by: Morphine Sulfate () 4 mg IV Q3H PRN PRN PRN Reason: Pain Score 1-10/10 Potassium Chloride (K-Dur) 40 meq PO DAILYCM [facility] Sodium Chloride () 10 - 40 ml IV UD PRN PRN Reason: SALINE FLUSH Last Admin: 04/19/20 10:31 Dose: 10 ml Documented by: Tamsulosin HCl (Flomax) 0.4 mg PO DAILY@1730 [facility] Last Admin: 04/18/20 16:10 Dose: 0.4 mg Documented by: Home Medications: Medications to take at Discharge albuterol sulfate 90 mcg/actuation aerosol inhaler 2 puff INHALATION Q6H PRN 09/17/19 glimepiride 4 mg tablet 4 mg PO DAILY 09/17/19 metformin 500 mg tablet 500 mg PO BID 09/17/19 potassium chloride 10 mEq capsule,extended release 10 meq PO DAILY 09/17/19 tamsulosin 0.4 mg capsule 0.4 mg PO DAILY 09/17/19 triamterene 37.5 mg-hydrochlorothiazide 25 mg tablet 1 tab PO DAILY 09/17/19 aspirin 81 mg tablet,delayed release 81 mg PO DAILY@0800 09/30/19 Atorvastatin Calcium [Lipitor] 40 mg PO QHS 04/18/20 Primary Care Physician: Vladimir Healy MD [Primary Care Provider] - Disposition: Acute care Hospital Minutes spent on discharge:: 35 Patient Condition:: Fair Medical Necessity - Tobacco Use Smoking Status: Never smoker Tobacco Use: Non-smoker Meaningful Use Info Meaningful Use Diagnoses (Choose all that apply): AMI - AMI/Post PCI/Angioplasty Aspirin given w/in 24hrs of arrival?: Yes ASA at discharge?: Yes Statins at discharge?: Yes Geovanny/ARB at discharge?: No Reason Geovanny/ARB not ordered:: Worsening renal dysfunctn Beta Mimi at discharge?: Yes Done w/ Acute [place] measure.: Yes
== END 2020-04-19 14:03 | disposition short-term general hospital (02) | DRG 270 ==
LOC: ED 12:36 → PCU 04-19 07:03
PROVIDERS: Nurse Practitioner Family; Admitting Provider Internal Medicine; Emergency Provider Emergency Medicine; PCP Family Medicine; Visit Provider Internal Medicine
DX: I21.4 Non-ST elevation (NSTEMI) myocardial infarction (principal); I50.21 Acute systolic (congestive) heart failure; I13.0 Hypertensive heart and chronic kidney disease with heart failure and stage 1 through stage 4 chronic kidney disease, or unspecified chronic kidney disease; I25.110 Atherosclerotic heart disease of native coronary artery with unstable angina pectoris; E11.22 Type 2 diabetes mellitus with diabetic chronic kidney disease; N18.3 Chronic kidney disease, stage 3 (moderate); I49.3 Ventricular premature depolarization; R09.02 Hypoxemia; I95.9 Hypotension, unspecified; E78.5 Hyperlipidemia, unspecified; J45.909 Unspecified asthma, uncomplicated; N40.0 Benign prostatic hyperplasia without lower urinary tract symptoms; Z79.84 Long term (current) use of oral hypoglycemic drugs; Z79.82 Long term (current) use of aspirin; Z79.899 Other long term (current) drug therapy
CPT/HCPCS: 33967; 36415; 71045; 71275; 80048; 82962; 83735; 83880; 84484; 85025; 85379; 85610; 85730; 93005; 93306; 93458; 99152; 99153; 99251; 99285; J7030; J7040; Q9957; Q9967; A4216; C1769; C1894; C8929; G0463; J1940

== ENCOUNTER → 2020-05-04 10:03 | Outpatient (CLI) | payer MEDICARE, SELFPAY ==
[2020-04-18 14:25] VITALS: BMI 28.9
[2020-05-04 11:09] LABS: Absolute Lymphocyte Count 0.28 X10^3/uL (0.83-4.51); Absolute Neutrophil Count 7.4 X10^3/uL (2.0-7.7); Basophil# 0.03 X10^3/uL; Basophil% 0.3 % (0-1); Eosinophil# 0.23 X10^3/uL; Eosinophils% 2.6 % (0-5); Hematocrit 29.8 % (40-54); Hemoglobin 9.2 g/dL (13.0-16.5); Lymphocyte # 0.28 X10^3/ul (4.0); Lymphocyte % 3.2 % (19-41); Mean Corp Hgb Conc 30.9 g/dL (32-36); Mean Corpuscular Hgb 29.1 pg (27.0-32.0); Mean Corpuscular Volume 94.3 fL (80-94); Mean Platelet Vol. 10.5 fl (6.2-12.0); Monocyte# 0.73 X10^3/uL; Monocyte% 8.4 % (0-10); NRBC Flagged by Analyzer 0 % (0-5); Neutrophil # 7.39 X10^3/uL (2.7-7.7); Neutrophil % 84.7 % (47-70); POSITIVE DIFFERENTIAL YES; Platelet Count 293 K/mm3 (150-450); RBC Distribution Width CV 14.6 % (11.6-14.6); RBC Distribution Width SD 50.4 fl (35.1-43.9); Red Blood Count 3.16 M/mm3 (4.6-6.2); White Blood Count 8.7 K/mm3 (4.4-11.0)
[2020-05-04 11:13] LABS: Differential Indicated SCAN CRITERIA MET
[2020-05-04 11:51] LABS: Anion Gap 6 (5-15); BUN 32 mg/dL (7-18); BUN/Creat Ratio 15.3 RATIO (10-20); Calcium,Total 8.3 mg/dL (8.5-10.1); Chloride 106 mmol/L (98-107); Creatinine, Serum 2.09 mg/dL (0.70-1.30); EST Glomerular Filtration Rate 33 mL/min (>60); Est Glom Filt Rate - Afr Amer 39 mL/min (>60); Glucose 222 mg/dL (74-106); Sodium Level 138 mmol/L (136-145)
== END ==
PROVIDERS: PCP Family Medicine; Referring Provider Internal Medicine Cardiovascular Disease; Visit Provider Internal Medicine Cardiovascular Disease
CPT/HCPCS: 36415; 80048; 85025

== ENCOUNTER 2020-05-04 11:39 | Inpatient (IN) | payer MEDICARE, SELFPAY ==
[2020-05-04] VITALS (11 sets, daily range): BP systolic 81–116; BP diastolic 38–64; PULSE 57–82; RESP 16–20; TEMP 36.7–37.2; O2SAT 91–94; BMI 28.5; BMI 28.3
--- NOTE | 2020-05-04 12:11 | ED.DCSUM_ITS ---
History of Present Illness Chief Complaint: Hypotension Detail of Chief Complaint: lethargy Informant: Patient, Family, - - cardiology clinic [employer] Onset: Days - several Context: Gradual Onset Timing: Continuous Quality: weak and tired Location: all over Current Severity: Severe Maximum Severity: Severe Worsened by: n/a Relieved by: n/a Associated Symptoms: denies Narrative: Over the past several days patient has been becoming more and more tired and fatigued. Blood pressure is 107 a couple days ago at home taken by home health nurse, today in the office it was 88/50 so he was sent to the ER. He arrived home 1 week ago from [facility], where he was flown to from here after diagnosing critical coronary disease in the left main. He was deemed too high risk for CABG so his left main was stented and during this he had an ejection fraction measured at approximately 15%. He had an intra-aortic balloon pump, and he was discharged with a LifeVest. It has not discharged. He denies having any chest discomfort, shortness of breath, swelling in his legs, nausea, vomiting, lightheadedness, syncope, or any other symptoms. Just feeling very tired. He has still been able to stand and walk with his walker. 4 or 5 days ago, he accidentally missed his nighttime medications which include Lipitor, amiodarone, and his Brilinta. He took these medications in the morning, those include the amiodarone and Brilinta as well as his other medications, he missed them for about 2 nights. He has been taking them consistently since. His was helping to give him his medications. 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 Mikhail Siu MD) Father CAD (coronary artery disease) Cancer Sister Cancer Family History: Reports: - - Denies known maternal medical history including cardiac history. Review of Systems General: Reports: Malaise. Denies: Chills, Fever, Sweats Eyes: Denies: Visual changes - bilaterally, Diplopia ENT: Denies: Rhinorrhea, Sore throat Cardiovascular: Denies: Chest pain, Palpitations Respiratory: Denies: Dyspnea, Cough, Dyspnea on exertion Gastrointestinal: Denies: Abdominal pain, Nausea, Vomiting, Diarrhea, Melena, Hematochezia Genitourinary: Denies: Dysuria, Hematuria, Frequency Musculoskeletal: Denies: Back pain, Swelling, Extremity Pain Skin: Denies: Rash, Wounds Neurological: Denies: Headache, Weakness, Numbness Physical Exam Vital Signs/Narrative: Vital Signs Temp Pulse Resp BP Pulse Ox 05/04/20 11:41 98.1 F 57 L 18 81/38 L 91 Inital Vital Signs reviewed: Yes General: Well nourished, Well developed, No Acute Distress Head: Normocephalic, Atraumatic Eyes: Perrl, EOMI ENT: Moist mucous membranes, No rhinorrhea Neck: Supple, Nontender Cardiovascular: Regular rate, Regular rhythm, No murmurs, Bradycardia Respiratory: No distress, CTA bilaterally, Chest nontender Abdomen: Soft, Nontender, Nondistended, Normal bowel sounds Back: Nontender, Normal Inspection Extremities: Nontender, No edema. Negative for: Calf Tenderness Skin: Normal color, No rash, No Trauma Neurological: Oriented x3, Cranial nerves II-XII grossly intact, Normal Strength, Normal Sensation, Lethargic - Alerts to voice and follows commands. Psychological: Normal affect, Normal Mood Diagnostic/Tx/Re-eval Laboratory Tests 05/04/20 05/04/20 Range/Units 10:11 10:11 Troponin I 0.073 H (<0.045) ng/mL B-Natriuretic Peptide 2568.6 H (0-100) pg/mL - Rhythm Strip Rhythm Strip: Sinus bradycardia Rate: 55 Ectopy: None - EKG Initial EKG Interpretation: No Acute Injury Pattern, Sinus Bradycardia, - - Old anterior infarct - Medical Decision Making Reviewed his basic labs that were obtained just prior to arrival in the ER from the office, his creatinine is around 2 which is similar to what it was prior to being transferred to [place] last week. He does have a history of chronic renal insufficiency and this appears relatively stable. I add a troponin and BNP to that. His EKG shows no acute injury, he is having no chest pain. I discussed his case and vital signs with Dr. Reno, he feels we can admit and evaluate the patient here, give him a 250 cc normal saline IV fluid bolus, and possibly manipulate some of his medications, especially since he is not currently in atrial fibrillation. He has not been eating or drinking well since he has been so weak and tired, so differential does include hypovolemia in addition to worsening ischemic cardiomyopathy; will discuss with hospitalist for PCU admission. After a 250 cc bolus, patient is more alert and his pressure is 102/59. He already is feeling better. I did discuss the abnormal labs with Dr. Reno, and he agrees that the troponin is likely abnormal because it is still trending down since his [place], given his renal insufficiency, and he is comfortable that the patient still stays here for medical management. ED Disposition - Plan for ED Patient: Disposition: Acute Care Hospital [facility] Diagnosis: Ischemic cardiomyopathy, Transient hypotension, Paroxysmal atrial fibrillation Referrals: Vladimir Healy MD [Primary Care Provider] -
--- NOTE | 2020-05-04 12:14 | RAD_ITS ---
STUDY: X-RAY CHEST REASON FOR EXAM: Male, 79 years old. WEAKNESS, CHF, HYPOTENSION TECHNIQUE: Single AP portable view of the chest. COMPARISON: Comparison is made with prior examination dated 04/18/2020. FINDINGS: EKG electrodes are seen. Persistent patchy infiltrate at the left lung base with blunting of the left cosmetic angle. There is borderline cardiomegaly. Normal mediastinum and daphne. Normal visualized pulmonary arteries. There is atherosclerotic calcification of the aortic arch with tortuosity. There are diffuse degenerative changes of the visualized thoracic spine. Normal visualized ribs, clavicles, and shoulders. There is no demonstrated abnormality of the visualized soft tissue structures of the upper abdomen. RAD/Chest 1 View (Portable) IMPRESSION: Left basilar infiltrate with blunting of the left costophrenic angle. Electronically Signed: Matt Aaron, at 14:28 EDT , Service support ,
--- NOTE | 2020-05-04 12:14 | EKG12_ITS ---
Test Reason : LOW BP Blood Pressure : / mmHG Vent. Rate : 058 BPM Atrial Rate : 058 BPM P-R Int : 190 ms QRS Dur : 114 ms QT Int : 530 ms P-R-T Axes : 018 -17 088 degrees QTc Int : 520 ms Sinus bradycardia Septal infarct , age undetermined T wave abnormality, consider anterior ischemia Prolonged QT Abnormal ECG Confirmed by RON BAUTISTA, MAL ([id number]), editor newspaper DINO MARTINS ([id number]) on 05/09/2020 8:22:36 A M Referred By: DAK[place] Confirmed By:TROY VELASQUEZ MD
[2020-05-04] MEDS: 0.9% Normal Saline 1,000 ML 250 ML IV ×4 (13:23→23:08)
--- NOTE | 2020-05-04 13:40 | NURSING ---
DR ZHU IN ER
--- NOTE | 2020-05-04 13:41 | NURSING ---
PCU OBS ASHELFAH TRANSIENT HYPOTENSION, ISCHEMIC CM, PARAXYSMAL AFIB
--- NOTE | 2020-05-04 13:54 | HP.PCM_ITS ---
Problem List (1) Transient hypotension Status: Acute (2) life vest Status: Acute (3) Paroxysmal atrial fibrillation Status: Chronic (4) History of coronary artery stent placement Status: Chronic Comment: PCI-DANAY-Mid LMT w/ 4.0 x 8 mm Xience Keturah Stent 04/19/2020 (5) Chronic kidney disease (CKD) Status: Chronic (6) Non-STEMI (non-ST elevated myocardial infarction) Status: Chronic (7) Ischemic cardiomyopathy Status: Chronic (8) Essential (primary) hypertension Status: Chronic (9) Hyperlipidemia Status: Chronic History of Present Illness Date of Admission: 05/04/20 Chief Complaint: Hypotension, weakness, fatigue. The patient is a 79 year old M with past medical history as mentioned above was referred to the emergency department from [facility] office for hypotension. 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 According to the patient's [id number], patient has been very weak and fatigued over the last several days, has been falling asleep, difficult to stay awake and he has been lethargic. Patient denies any chest pain or shortness of breath. He denies dizziness, lightheadedness, syncope or presyncope. He denies abdominal pain, nausea or vomiting. He denied fever or chills. He reported chronic dry cough, no sputum production. At the cartridge loading operator office, his blood pressure was 88/50. On April 18, 2020, patient was admitted for non-STEMI, found to have critical lesion of the left main coronary artery, had intra-aortic balloon pump, was transferred to [facility] for CABG. He was evaluated there and apically, patient was not a good candidate for CABG and stent placement to left main coronary artery. He was found to have ischemic cardiomyopathy with ejection fraction of 15% on 2D echocardiogram that was done on March, at this hospital. He had another 2D echocardiogram at [facility] on April 25, 2020 and ejection fraction was 25%. Patient has LifeVest in place. Upon discharge from [facility], patient was started on amiodarone, Coreg, Lasix, lisinopril and Aldactone and patient was not on all these medications before this recent non-STEMI. History of hypertension and he has been on the on HCTZ/triamterene before he had a recent non-STEMI after which he was started on beta-blockers, BRIGHT inhibitors and diuretics. He had a history of type 2 diabetes mellitus, has been on glimepiride and hemoglobin A1c was 7.2% on Nov, 2019. Today in the emergency department, patient was hypotensive, received with bolus of IV fluids and blood pressure improved. He was afebrile, heart rate has been around high 50s to 60s, pulse ox was 91% on room air. Routine blood work was remarkable for hemoglobin of 9.2 g/dL, BUN of 32, creatinine is 2.09. EKG revealed sinus bradycardia, prolonged QTC, no acute changes. Troponin was 0.073. BNP was 2568. He is being admitted for symptomatic bradycardia and hypotension likely due to combination of medication side effects including amiodarone, Coreg, lisinopril and Aldactone as well as poor oral intake and also anemia is contributing. Past Medical History Past Medical History (Chronic Problems): Chronic Problems (Last Updated 05/04/20 @ 13:[address] 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 Madison Zapata MD) Paroxysmal atrial fibrillation (Chronic) Onset Date: 04/19/20 I48.0 Pericardial effusion without cardiac tamponade (Chronic) Onset Date: 04/19/20 I31.3 Chronic kidney disease (CKD) (Chronic) N18.9 Non-STEMI (non-ST elevated myocardial infarction) (Chronic) Onset Date: 04/19/20 I21.4 Ischemic cardiomyopathy (Chronic) I25.5 Premature ventricular contractions (Chronic) I49.3 Essential (primary) hypertension (Chronic) I10 Hyperlipidemia (Chronic) E78.5 Type 2 diabetes mellitus without complication E11.9 Allergies No Known Allergies Allergy (Verified 05/04/20 11:47) Home Medications: Ambulatory Orders Medication Instructions Recorded tamsulosin 0.4 mg capsule 0.4 mg PO DAILY 09/17/19 aspirin 81 mg tablet,delayed 81 mg PO DAILY@0800 09/30/19 release amiodarone 200 mg tablet 200 mg PO BID 04/28/20 atorvastatin 80 mg tablet 80 mg PO QHS 04/28/20 carvedilol 6.25 mg tablet 6.25 mg PO BID 04/28/20 furosemide 20 mg tablet 20 mg PO DAILY 04/28/20 lisinopril 10 mg tablet 10 mg PO DAILY 04/28/20 pantoprazole 40 mg tablet,delayed 40 mg PO DAILY 04/28/20 release spironolactone 25 mg tablet 12.5 mg PO DAILY tab 04/28/20 ticagrelor 90 mg tablet 90 mg PO BID 04/28/20 Nitroglycerin (INPATIENT USE) 0.4 mg SUBLINGUAL Q5M PRN 05/04/20 [Nitrostat] Surgical History: Surgical History (Last Reviewed 05/04/20 @ 14:[address] Madison Zapata MD) History of coronary artery stent placement (Chronic) Onset Date: 04/19/20 Z95.5 PCI-DANAY-Mid LMT w/ 4.0 x 8 mm Xience Keturah Stent 04/19/2020 H/O shoulder surgery Z98.890 History of hernia surgery Z98.890, Z87.19 History of left heart catheterization Onset Date: 04/19/20 Z98.890 History of tonsillectomy Z90.89 Hx of cataract surgery Z98.49 Surgical History: cataract Psychiatric History: No pertinent psych hx Lives: Spouse/ Significant Other Smoking Status: Never smoker Alcohol: None Drugs: None - *Family History Maternal Family History: Family History (Last Reviewed 05/04/20 @ 14:[address] Madison Zapata MD) Father CAD (coronary artery disease) Cancer Sister Cancer History Items: - - Denies known maternal medical history including cardiac history. Review of Systems Constitutional: Reports: Anorexia, Weakness, Fatigue. Denies: Chills, Fever Eyes: Denies: Blurred vision, Double vision, Drainage, Redness HEENT: Denies: Difficulty Hearing, Ear Pain, Eye Pain, Nasal Congestion, Sore Throat Cardiovascular: Denies: Chest Pain, Chest Pressure, Edema, Heaviness, Light Headedness, Palpitations, Syncope Respiratory: Reports: Cough. Denies: Pleuritic Pain, Shortness of Breath, Sputum production, Wheezing Gastrointestinal: Reports: Constipation. Denies: Abdominal Pain, Diarrhea, Nausea, Vomiting Genitourinary: Denies: Dysuria, Frequency, Hematuria Musculoskeletal: Denies: Arm Pain, Back Pain, Foot Pain Skin: Denies: Dryness, Rash Neurological: Denies: Balance problems, Change in Speech, Slurred speech, Confusion, Headaches, Incoordination, Numbness, Tingling Psychiatric: Denies: Anxiety, Depression Endocrine: Denies: Change in Body Habitus, Polydipsia, Polyuria VTE Information - Inpt Only VTE Present on Admission: No VTE Mechan Device Prophylaxis: None VTE Pharm Prophylaxis ordered?: Yes - Physical Exam Vitals/I&O's: Vital Signs Temp Pulse Resp BP Pulse Ox 98.1 F 64 20 H 102/59 L 94 05/04/20 11:41 05/04/20 13:24 05/04/20 13:24 05/04/20 13:24 05/04/20 13:24 Oxygen Delivery Method Room Air Weight: 188 lb Body Mass Index (BMI) 28.5 General: Alert, Oriented x3, Cooperative, No apparent distress HEENT: Atraumatic, PERRLA, EOMI, Normocephalic Oral: Moist Mucosa, No Gingival or Mucosal Lesions/ Ulcerations Neck: Supple, No JVD, Negative Carotid Bruits, Trachea Midline, Thyroid Normal Size and Texture Lungs: Clear to auscultation, Normal air movement, No rhonchi, No wheeze, No rales, Diminished Cardiovascular: Regular rate, Regular Rhythm, Normal S1, Normal S2, PMI Normal, Bradycardic Abdomen: Bowel Sounds Present, Soft, Non Tender, Non-Distended, No Hepato- splenomegaly Extremities: No clubbing, No cyanosis, No edema Skin: No rashes, No breakdown Lymphatic: No Cervical, Supraclavicular, or Inguinal Adenopathy Neurological: Cranial nerves II-XII grossly intact, Motor Exam 5/5 strength throughout Psych/Mental Status: Normal Affect, Appropriate, Alert and oriented to time, place, person, mood and affect Laboratory Results 05/04/20 10:11: Troponin I 0.073 H 05/04/20 10:11: B-Natriuretic Peptide 2568.6 H Laboratory Tests 05/04/20 05/04/20 Range/Units 10:11 10:11 Troponin I 0.073 H (<0.045) ng/mL B-Natriuretic Peptide 2568.6 H (0-100) pg/mL Current Medications Sodium Chloride () 1,000 mls @ 250 mls/hr IV .Q4H VALERIA Last Admin: 05/04/20 13:23 Dose: 250 mls/hr Documented by: Assessment/Plan All Active Problems (Last Updated 05/04/20 @ 13:[address] Madison Zapata MD) Transient hypotension (Acute) life vest (Acute) This is an 79 years old male patient was referred to ED from [facility] office for hypotension, complaints of weakness, fatigue and lethargy, found to have symptomatic bradycardia and transient hypotension which is improved after IV fluid bolus and he is being admitted for treatment #1 symptomatic bradycardia/transient hypotension/lethargy: This is probably due to combination of medication side effects in addition to poor oral intake. Patient was started recently on Coreg, lisinopril, amiodarone, Lasix and Aldactone. Initially, blood pressure was in the 80s systolic, received bolus of IV fluids and blood pressure improved. EKG reviewed, revealed sinus bradycardia, prolonged QTC, no acute changes. Troponin is borderline elevated. Chest x-ray was ordered, pending. Plan: Admit to ICU, cardiac monitoring, serial cardiac enzymes, repeat EKG tomorrow morning, decrease amiodarone 200 mg p.o. daily, decrease Coreg to 3.125 twice daily, discontinue Lasix and Aldactone, decrease lisinopril to 5 mg p.o. daily, small IV fluid bolus as needed for hypotension, cardiology consult, check pro time with INR, repeat CBC and BMP tomorrow morning, PT OT evaluation and treatment. #2 anemia: This is fairly acute. Patient denied any bleeding from body orifices. Reportedly, patient was on intra-aortic balloon pump for 3 days which may explain his anemia. Patient's [id number] mentioned that he received blood transfusion at [facility]. Admission hemoglobin is 9.2 g/dL. Platelet count is normal. No evidence of active bleeding. Plan: Check pro time and INR, check serum iron, TIBC, serum ferritin, repeat CBC tomorrow morning. Plan to transfuse if hemoglobin drops below 8 g/dL. #3 recent history of non-STEMI with critical left main coronary artery stenosis: Was transferred to [facility] for evaluation for CABG, deemed to be high risk for CABG and he had stent placement to left main. As mentioned above, ejection fraction 15% on March, on echocardiogram that was done here and ejection fraction was 25% on April 25, 2020 on echocardiogram that was done at [facility]. EKG and troponin reviewed as above. Currently, patient on LifeVest. Plan to continue aspirin, Brilinta, statins, adjust Coreg, lisinopril as above. #4 paroxysmal atrial fibrillation: Currently, he is in sinus rhythm, has been slightly bradycardic, heart rate has been in the high 50s to 60s. Plan to decrease amiodarone as above, adjust Coreg as well as above. Patient is not on anticoagulation. #5 stage III chronic kidney disease: Baseline creatinine has been around 1.4 to 1.8 mg/dL. Admission creatinine is 2.09, close to baseline. It is likely because of medication side effects including diuretics. Plan as above, repeat BMP tomorrow morning. #6 type 2 diabetes mellitus: ADA diet, Accu-Cheks, insulin sliding scale. #7 hypertension: Patient is currently hypotensive, blood pressure improved after IV fluid bolus. Plan as above. #8 ischemic cardiomyopathy: Without evidence of acute CHF. Plan follow-up adjusted medications as above. #9 hyperlipidemia: Continue statins. #10 DVT prophylaxis on subcu heparin. This note was generated with [employer] dictation software. It may contain incorrect words, spelling, and punctuation that were not noted in checking the note before signing. Inpatient E&M: 62241 Init Hosp L3
[2020-05-04 16:12] LABS: International Normalized Ratio 1.2; Prothrombin Time (Protime)PT. 14.2 SECONDS (11.7-14.9)
[2020-05-04] MEDS: Insulin Lispro 100 UNIT/ML INSULN.PEN SC ×2 (16:44→22:21)
[2020-05-04 17:14] LABS: Ferritin 647 ng/mL (26-388); Iron 26 ug/dL (65-175); Iron Binding Capacity,Total 258 ug/dL (250-450); PERCENT IRON SATURATION 10.1 % (15.0-55.0)
[2020-05-04 17:41] LABS: Bedside Glucose 171 mg/dL (70-110)
[2020-05-04] MEDS: Budesonide Respules 0.5 MG/2 ML AMPUL.NEB. INHALATION (19:42)
[2020-05-04] MEDS: Ipratropium/Albuterol Sulfate 3 ML AMPUL.NEB INHALATION (19:42)
[2020-05-04] MEDS: Zolpidem Tartrate 5 MG Tablet PO (22:21)
[2020-05-04] MEDS: Heparin Injection (Vial) 5,000 UNIT/ML VIAL 5000 UNIT SC (22:21)
[2020-05-04] MEDS: Atorvastatin Calcium 80 MG Tablet PO (22:21)
[2020-05-04] MEDS: TICAGRELOR 90 MG TABLET PO (22:21)
[2020-05-04 22:35] LABS: Bedside Glucose 182 mg/dL (70-110)
[2020-05-05] VITALS (20 sets, daily range): BP systolic 78–132; BP diastolic 45–71; PULSE 65–124; RESP 16–24; TEMP 36.8–37.8; O2SAT 92–99
[2020-05-05] MEDS: Carvedilol 3.125 MG TABLET PO ×3 (00:40→22:05)
[2020-05-05] MEDS: 0.9% Saline Lock 10 ML Syringe IV ×2 (01:57→22:05)
[2020-05-05] MEDS: 0.9% Normal Saline 1,000 ML 250 ML IV (04:35)
[2020-05-05 05:42] LABS: Absolute Lymphocyte Count 0.33 X10^3/uL (0.83-4.51); Basophil# 0.03 X10^3/uL; Basophil% 0.3 % (0-1); Eosinophil# 0.12 X10^3/uL; Eosinophils% 1.3 % (0-5); Hematocrit 28.4 % (40-54); Hemoglobin 8.6 g/dL (13.0-16.5); Lymphocyte # 0.33 X10^3/ul (4.0); Lymphocyte % 3.4 % (19-41); Mean Corp Hgb Conc 30.3 g/dL (32-36); Mean Corpuscular Hgb 28.9 pg (27.0-32.0); Mean Corpuscular Volume 95.3 fL (80-94); Mean Platelet Vol. 10.3 fl (6.2-12.0); Monocyte# 1.01 X10^3/uL; Monocyte% 10.6 % (0-10); NRBC Flagged by Analyzer 0 % (0-5); Neutrophil # 8.01 X10^3/uL (2.7-7.7); Neutrophil % 83.7 % (47-70); POSITIVE DIFFERENTIAL YES; Platelet Count 262 K/mm3 (150-450); RBC Distribution Width CV 14.6 % (11.6-14.6); RBC Distribution Width SD 50.8 fl (35.1-43.9); Red Blood Count 2.98 M/mm3 (4.6-6.2); White Blood Count 9.6 K/mm3 (4.4-11.0)
[2020-05-05 05:51] LABS: Differential Indicated SCAN CRITERIA MET
--- NOTE | 2020-05-05 05:55 | EKG12_ITS ---
Test Reason : AM EKG Blood Pressure : / mmHG Vent. Rate : 086 BPM Atrial Rate : 086 BPM P-R Int : 198 ms QRS Dur : 118 ms QT Int : 424 ms P-R-T Axes : 030 -11 113 degrees QTc Int : 507 ms Normal sinus rhythm Anteroseptal infarct , age undetermined Prolonged QT Abnormal ECG When compared with ECG of 04-MAY-2020 12:36, MANUAL COMPARISON REQUIRED, DATA IS UNCONFIRMED Confirmed by ORN BAUTISTA, MAL ([id number]), editor & co founder DINO MARTINS ([id number]) on 05/09/2020 9:03:50 A M Referred By: MARKO Confirmed By:TROY VELASQUEZ MD
[2020-05-05 05:56] LABS: Anion Gap 5 (5-15); BUN 29 mg/dL (7-18); BUN/Creat Ratio 15.8 RATIO (10-20); Calcium,Total 7.8 mg/dL (8.5-10.1); Chloride 111 mmol/L (98-107); Creatinine, Serum 1.84 mg/dL (0.70-1.30); EST Glomerular Filtration Rate 38 mL/min (>60); Est Glom Filt Rate - Afr Amer 46 mL/min (>60); Estimated Creatinine Clearance 30.46 ml/min; Glucose 157 mg/dL (74-106); Potassium 3.9 mmol/L (3.5-5.1); Sodium Level 139 mmol/L (136-145)
[2020-05-05 06:26] LABS: Acanthocytes 1+; Differential Comment SCANNED; Schistocytes RARE
[2020-05-05 06:27] LABS: Hypochromasia RARE
[2020-05-05] MEDS: Insulin Lispro 100 UNIT/ML INSULN.PEN SC ×2 (06:55→11:51)
[2020-05-05 07:00] LABS: Bedside Glucose 162 mg/dL (70-110)
[2020-05-05] MEDS: Ipratropium/Albuterol Sulfate 3 ML AMPUL.NEB INHALATION (07:32)
[2020-05-05] MEDS: Aspirin E.C. 81 MG Tablet PO (09:03)
[2020-05-05] MEDS: Heparin Injection (Vial) 5,000 UNIT/ML VIAL 5000 UNIT SC ×2 (09:04→22:05)
[2020-05-05] MEDS: Tamsulosin HCl 0.4 MG Capsule PO (09:04)
[2020-05-05] MEDS: TICAGRELOR 90 MG TABLET PO ×2 (09:04→22:05)
[2020-05-05] MEDS: Amiodarone 200 MG Tablet PO (09:04)
[2020-05-05] MEDS: Pantoprazole Sodium 40 MG Tablet PO (09:05)
[2020-05-05] MEDS: Lisinopril 2.5 MG Tablet PO (09:05)
[2020-05-05] MEDS: Sodium Ferric Gluconat 250 MG in 0.9% Normal Saline 250 ML 135 MG IV (11:49)
[2020-05-05 11:55] LABS: Bedside Glucose 155 mg/dL (70-110)
--- NOTE | 2020-05-05 12:50 | CASEMGMT ---
RN SAULO Face to Face with patient for initial transition planning/care coordination assessment. RN CM introduced self and role at [facility]. Patient sitting in chair, alert and oriented, daughter in law, Keyla, at bedside. Patient willing to participate in assessment and is able to answer all questions appropriately. Care providers, pharmacy, and demographics verified. Patient wishes to discharge home, with resumption of HHC with [facility]. Patient states he has no further needs or concerns at this time. CM to follow for discharge planning needs that may arise. PCP: Niraj Specialists: Sherron environmental protection officer Preferred Pharmacy: [facility] Insurance: [facility] Prescription Benefit: yes Living Will/HPOA: yes, son Johnny Yañez HPOA LNOK: , sons, daughter in law Living Arrangements: Patient lives with in a 2 story with bed and bath setup on first floor. Patient states he was independent at home prior to hospitalization. Transportation: self, , family DME/HHC: Patient states he has raised toilet, cane, walker, hospital bed, grab bars at home. Will monitor for need for home oxygen. Patient states his hospital bed is through [facility] and if he needs oxygen [facility]. Disposition Plan: Patient to discharge home with resumption of HHC, family support, and follow-up plans in place. Shira FERGUSON, RN, CM
--- NOTE | 2020-05-05 14:18 | PN_ITS ---
Patient Problems: Active and Suspected Problems (Last Updated 05/04/20 @ 13:[address] Madison Zapata MD) Transient hypotension (Acute) life vest (Acute) Reason for Visit: bradycardia Subjective: No LH/Dizziness, no palpitations, no chest pain/pressure, no SOB. Vitals/I&O's: Vital Signs Temp Pulse Resp BP Pulse Ox 98.6 F 72 16 97/45 L 94 05/05/20 13:35 05/05/20 13:35 05/05/20 13:35 05/05/20 13:35 05/05/20 13:35 Oxygen Flow Rate (L/min) 2 Oxygen Delivery Method Nasal Cannula Weight: 186 lb 3.203 oz Body Mass Index (BMI) 28.3 Intake and Output for Last 24 Hours 05/03/20 05/04/20 05/05/20 23:59 23:59 23:59 Intake Total 2455.83 / 2575.83 2547.92 / 2547.92 Output Total 750 / 750 Balance 2455.83 / 2575.83 1797.92 / 1797.92 General: Alert, Oriented x3, Cooperative HEENT: Atraumatic, PERRLA, EOMI, Normocephalic Neck: Supple, No JVD, Negative Carotid Bruits Lungs: Clear to auscultation, Normal air movement Cardiovascular: Regular rate, No murmurs Abdomen: Bowel Sounds Present, Soft, Non Tender Extremities: No edema, Capillary Refill Less than 3 Seconds Skin: No rashes, No breakdown Musculoskeletal: No Tenderness to Palpation of Joints or Extremities Neurological: Cranial nerves II-XII grossly intact Psych/Mental Status: Normal Affect, Appropriate, Alert and oriented to time, place, person, mood and affect Laboratory Results 05/04/20 15:39: PT 14.2, INR 1.2 05/04/20 15:39: Iron 26 L, TIBC 258, Iron Saturation 10.1 L, Ferritin 647 H 05/04/20 15:39: Troponin I 0.062 H 05/04/20 16:40: POC Glucose 171 H 05/04/20 18:05: Troponin I 0.033 05/04/20 22:18: POC Glucose 182 H 05/05/20 05:18: WBC 9.6, RBC 2.98 L, Hgb 8.6 L, Hct 28.4 L, MCV 95.3 H, MCH 28.9, MCHC 30.3 L, RDW Std Deviation 50.8 H, RDW Coeff of Kranthi 14.6, Plt Count 262, MPV 10.3, Immature Gran % (Auto) 0.700, Neut % (Auto) 83.7 H, Lymph % (Auto) 3.4 L, Sac % (Auto) 10.6 H, Eos % (Auto) 1.3, Baso % (Auto) 0.3, Absolute Neuts (auto) 8.0 H, Absolute Lymphs (auto) 0.33 L, Nucleated RBC % 0, Differential Comment SCANNED, Hypochromasia RARE, Acanthocytes (Spur) 1+, Schistocytes RARE 05/05/20 05:18: Sodium 139, Potassium 3.9, Chloride 111 H, Carbon Dioxide 23.0, Anion Gap 5, BUN 29 H, Creatinine 1.84 H, Estim Creat Clear Calc 30.46, Est GFR (MDRD) Af Amer 46 L, Est GFR (MDRD) Non-Af 38 L, BUN/Creatinine Ratio 15.8, Glucose 157 H, Calcium 7.8 L 05/05/20 06:53: POC Glucose 162 H 05/05/20 11:44: POC Glucose 155 H Current Medications Acetaminophen (Acetaminophen 325 Mg Tablet) 650 mg PO Q6H PRN PRN PRN Reason: Pain Score 1-10/Temp > 100.7 F Albuterol/Ipratropium (Ipratropium/Albuterol Sulfate 3 Ml Ampul.Neb) 3 ml INHALATION Q6HWA.RT [facility] Last Admin: 05/05/20 07:32 Dose: 3 ml Documented by: Amiodarone HCl (Amiodarone 200 Mg Tablet) 200 mg PO DAILY [facility] Last Admin: 05/05/20 09:04 Dose: 200 mg Documented by: Aspirin (Aspirin E.C. 81 Mg Tablet) 81 mg PO DAILY@0800 [facility] Last Admin: 05/05/20 09:03 Dose: 81 mg Documented by: Atorvastatin Calcium (Atorvastatin Calcium 80 Mg Tablet) 80 mg PO QHS [facility] Last Admin: 05/04/20 22:21 Dose: 80 mg Documented by: Budesonide (Budesonide Respules 0.5 Mg/2 Ml Ampul.Neb.) 0.5 mg INHALATION BID.RT [facility] Last Admin: 05/04/20 19:42 Dose: 0.5 mg Documented by: Carvedilol (Carvedilol 3.125 Mg Tablet) 3.125 mg PO BID [facility] Last Admin: 05/05/20 09:04 Dose: 3.125 mg Documented by: Heparin Sodium (Porcine) (Heparin Injection (Vial) 5,000 Unit/Ml Vial) 5,000 unit SC Q12 [facility] Last Admin: 05/05/20 09:04 Dose: 5,000 unit Documented by: Sodium Chloride () 1,000 mls @ 75 mls/hr IV .[id number] [facility] Last Infusion: 05/05/20 13:50 Dose: 75 mls/hr Documented by: Insulin Human Lispro (Insulin Lispro 100 Unit/Ml Insuln.Pen) 0 unit SC ACHS [facility]; Protocol Last Admin: 05/05/20 11:51 Dose: 1 u Documented by: Lisinopril (Lisinopril 2.5 Mg Tablet) 2.5 mg PO DAILY [facility] Last Admin: 05/05/20 09:05 Dose: 2.5 mg Documented by: Ondansetron HCl (Ondansetron 4 Mg/2 Ml Vial) 4 mg IV Q8H PRN PRN PRN Reason: NAUSEA/VOMITING Pantoprazole Sodium (Pantoprazole Sodium 40 Mg Tablet) 40 mg PO DAILY [facility] Last Admin: 05/05/20 09:05 Dose: 40 mg Documented by: Polysaccharide Iron Complex (Iron Polysaccharide Complex 150 Mg Capsule) [facility] Senna/Docusate Sodium (Senna/Docusate Sodium 1 Tablet) 2 tablet PO BID PRN PRN PRN Reason: Constipation Sodium Chloride (0.9% Saline Lock 10 Ml Syringe) 10 - 40 ml IV UD PRN PRN Reason: SALINE FLUSH Last Admin: 05/05/20 01:57 Dose: 20 ml Documented by: Tamsulosin HCl (Tamsulosin Hcl 0.4 Mg Capsule) 0.4 mg PO DAILY@0830 [facility] Last Admin: 05/05/20 09:04 Dose: 0.4 mg Documented by: Ticagrelor (Ticagrelor 90 Mg Tablet) 90 mg PO BID [facility] Last Admin: 05/05/20 09:04 Dose: 90 mg Documented by: STROKE Vital Signs/Narrative: Vital Signs Temp Pulse Resp BP Pulse Ox 10/15/20 13:35 98.6 F 72 16 97/45 L 94 05/05/20 12:35 85 20 H 05/05/20 11:54 99.2 F H 73 16 97/50 L 94 Medical Necessity - Tobacco Use Smoking Status: Never smoker Tobacco Use: Non-smoker Assessment/Plan All Active Problems (Last Updated 05/04/20 @ 13:[address] Madison Zapata MD) Transient hypotension (Acute) life vest (Acute) 1. Bradycardia/Hypotension - amiodarone and coreg doses decreased by 50% at admission. Now NSR. Continue current therapy and monitor overnight. IV fluids slowed to 75cc/hr given his history of ischemic CM/systolic CHF 2. Indeterminate troponin - unclear etiology. cardiology following 3. Ischemic CM/ chronic systolic CHF - IV fluids slowed. appeared dry at admission. EF25%. Has Life Vest on. 4. Iron deficiency anemia - venofer x 1, started po iron, check stool for occult blood. CBC in AM. 5. pAfib - NSR now. care as per #1. He is not anticoagulated 6. DMt2 - SSI, not on DM meds at home. 7. CAD - had setnt 04/19/2020 - continue asa/statin/coreg/brillinta DVT ppx: heparin DC planning: monitor HR/BP overnight. This patient was seen by Syed Dorsey PA-C under the supervision of Doctor Fatoumata contreras.
[2020-05-05 16:55] LABS: Bedside Glucose 142 mg/dL (70-110)
--- NOTE | 2020-05-05 17:38 | CON.PCM_ITS ---
Reason for Consult Date of Consultation: 05/05/20 Reason for Consultation: bradycardia, hypotension History of Present Illness: Patient was admitted on 04/18/2020 for shortness of breath that have been ongoing for approximately 3 weeks. He was noted to have a non-ST myocardial infarction, acute congestive heart failure and renal dysfunction. Echocardiogram demonstrated a decreased ejection fraction of 15% with wall motion abnormalities. This was new when compared to previous echocardiogram from September 2019. He did undergo an urgent heart catheterization which demonstrated distal 95% left main stenosis, LAD mild disease, left circumflex mild disease, dominant RCA with diffuse disease. He was transferred to [facility] for consideration of high risk angioplasty versus single-vessel bypass. He was transferred on a balloon pump. Patient did undergo stenting to his left main. He did develop a moderate pericardial effusion that did not result in cardiac tamponade. Repeat bedside echo prior to discharge demonstrated a small pericardial effusion with no tamponade. He did have paroxysmal atrial fibrillation and was discharged home on amiodarone. He was not started on anticoagulation given the situational atrial fibrillation. He was also discharged home with a LifeVest for his arrhythmia. Dtr sts that since he has been home his cognitive function has changed. She finds that he is sleeping most of the time. This changed since he came home. When he came home he had more energy. He does live with his . He is getting home PT. He does not have any chest pain. He does have SOB with exertion, he feels SOB at rest. His weight has been stable. He does not have any palpitations. he does not have any lightheadedness/dizziness. He does not have any edema. He does have a Life vest on this has not discharged. Yesterday patient was seen in the cardiology office by our nurse practitioner. He was somnolent and was also hypotensive with bradycardia. He was sent to the emergency room. Patient was then admitted to the PCU after a fluid bolus. His blood pressure became a little better with the fluid bolus. His medication doses were also decreased and his blood pressure and heart rate have improved significantly. Patient continues to fall asleep while conversing. His [id number] states that she has noticed that he does stop breathing for a short while when he is asleep. Review of systems: All systems reviewed. All else is negative except that in the HPI Past Medical History Allergies/Adverse Reactions: Allergies No Known Allergies Allergy (Verified 05/04/20 11:47) Home Medications: Ambulatory Orders Medication Instructions Recorded tamsulosin 0.4 mg capsule 0.4 mg PO DAILY 09/17/19 aspirin 81 mg tablet,delayed 81 mg PO DAILY@0800 09/30/19 release amiodarone 200 mg tablet 200 mg PO BID 04/28/20 atorvastatin 80 mg tablet 80 mg PO QHS 04/28/20 carvedilol 6.25 mg tablet 6.25 mg PO BID 04/28/20 furosemide 20 mg tablet 20 mg PO DAILY 04/28/20 lisinopril 10 mg tablet 10 mg PO DAILY 04/28/20 pantoprazole 40 mg tablet,delayed 40 mg PO DAILY 04/28/20 release spironolactone 25 mg tablet 12.5 mg PO DAILY tab 04/28/20 ticagrelor 90 mg tablet 90 mg PO BID 04/28/20 Budesonide/Formoterol Fumarate 1 puff INHALATION BID 05/04/20 [Symbicort 80-4.5 Mcg Inhaler] Melatonin 9 mg PO QHS 05/04/20 Nitroglycerin (INPATIENT USE) 0.4 mg SUBLINGUAL Q5M PRN 05/04/20 [Nitrostat] Past Medical History (Chronic Problems): Chronic Problems (Last Updated 05/04/20 @ 13:[address] 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 04/19/20) History of coronary artery stent placement (Chronic 04/19/20) PCI-DANAY-Mid LMT w/ 4.0 x 8 mm Xience [place] Stent 04/19/2020 Chronic kidney disease (CKD) (Chronic) Non-STEMI (non-ST elevated myocardial infarction) (Chronic 04/19/20) Atherosclerotic heart disease [place] coronary artery w/angina pectoris (Chronic) Ischemic cardiomyopathy (Chronic) Premature ventricular contractions (Chronic) Essential (primary) hypertension (Chronic) Hyperlipidemia (Chronic) Surgical History: cataract Psychiatric History: No pertinent psych hx - *Family History Maternal Family History: Family History (Last Reviewed 05/04/20 @ 14:[address] Madison Zapata MD) Father CAD (coronary artery disease) Cancer Sister Cancer History Items: - - Denies known maternal medical history including cardiac history. Lives: Spouse/ Significant Other Smoking Status: Never smoker Tobacco Use: Non-smoker Alcohol: None Drugs: None Objective: Vital Signs Temp Pulse Resp BP Pulse Ox 98.7 F 65 20 H 98/52 L 96 05/05/20 15:24 05/05/20 15:24 05/05/20 15:24 05/05/20 15:24 05/05/20 15:24 Oxygen Flow Rate (L/min) 2 Oxygen Delivery Method Nasal Cannula Weight: 186 lb 3.203 oz Body Mass Index (BMI) 28.3 Intake and Output for Last 24 Hours 05/03/20 05/04/20 05/05/20 23:59 23:59 23:59 Intake Total 2455.83 / 2575.83 2794.17 / 2794.17 Output Total 750 / 750 Balance 2455.83 / 2575.83 2044.17 / 2044.17 General: Awake, Alert, Oriented x 3 - Patient has periodically fall asleep HEENT: Atraumatic Oral: Moist Mucosa Neck: Supple Cardiovascular: Regular Rhythm 05/04/20 18:05: Troponin I 0.033 05/05/20 05:18: WBC 9.6, RBC 2.98 L, Hgb 8.6 L, Hct 28.4 L, MCV 95.3 H, MCH 28.9, MCHC 30.3 L, Plt Count 262, MPV 10.3, Immature Gran % (Auto) 0.700, Neut % (Auto) 83.7 H, Lymph % (Auto) 3.4 L, [place] % (Auto) 10.6 H, Eos % (Auto) 1.3, Baso % (Auto) 0.3, Absolute Neuts (auto) 8.0 H, Nucleated RBC % 0 05/05/20 05:18: Sodium 139, Potassium 3.9, Chloride 111 H, Carbon Dioxide 23.0, Anion Gap 5, BUN 29 H, Creatinine 1.84 H, Est GFR (MDRD) Af Amer 46 L, Est GFR (MDRD) Non-Af 38 L, BUN/Creatinine Ratio 15.8, Glucose 157 H, Calcium 7.8 L Rhythm: EKG: ECHO: Stress Test: Cardiac Cath: PCI: CT Surgery: Holter monitor: EPS: PPM: CXR: Chest CT Scan: Assessment/Plan 1. Hypotension: Likely related to overmedication. Patient is doing well with current doses of medications. His BRIGHT inhibitor has been switched to an ARB. 2. Bradycardia: Improved after decreasing coreg 3. Coronary artery disease: Stable. Continue present management 4. Ischemic cardiomyopathy: Appears compensated. Continue present management 5. Somnolence: Patient could have sleep apnea. Work-up for this per primary team.
[2020-05-05] MEDS: Budesonide Respules 0.5 MG/2 ML AMPUL.NEB. INHALATION (19:10)
--- NOTE | 2020-05-05 21:46 | PCM.HOSP.N ---
Hospitalist Note Febrile and tachycardic while receiving transfusion. TF stared at 2004, called at 2143. Advised to discontinue transfusion and administer acetaminophen and diphenhydramine. Notified blood bank of potential transfusion related reaction.
[2020-05-05] MEDS: DiphenhydrAMINE 25 MG Capsule PO (22:02)
[2020-05-05] MEDS: Acetaminophen 325 MG Tablet 650 MG PO (22:03)
[2020-05-05] MEDS: Atorvastatin Calcium 80 MG Tablet PO (22:05)
[2020-05-05 22:38] LABS: Color, Urine- Transfusion RXN Yellow (Yellow); Occult Blood-Urine Supernatant Negative (Negative)
[2020-05-05 22:41] LABS: TXN RXN Red Blood Cells-Urine 0 SEEN /hpf
--- NOTE | 2020-05-05 23:06 | NURSING ---
1 unit PRBCs started at 2004, prior to starting temp was 98.2, HR in the 80s. VS stable at 2019. At 0, temp 100.1 and HR in the 120s, pt resting in bed with eyes closed. This RN stopped the blood and started NS at 15 mL/hr. 156 mL of blood administered prior to stopping it. Pt denied any pain or chills. BP 98/51, O2 93% on 2 L. This RN called blood bank to report possible reaction, Dr. Ambriz notified as well, Benadryl and Tylenol ordered and given. Lab came up and sophia blood and urine specimen was obtained as well. Reaction documented in eTAR. VS stable, pt denies any symptoms. ROB Blunt.
[2020-05-05 23:16] LABS: Bedside Glucose 130 mg/dL (70-110)
[2020-05-06] VITALS (20 sets, daily range): BP systolic 63–125; BP diastolic 39–75; PULSE 67–126; RESP 15–29; TEMP 36.4–37.2; O2SAT 84–98
[2020-05-06 06:24] LABS: Absolute Neutrophil Count 7.5 X10^3/uL (2.0-7.7); Basophil# 0.03 X10^3/uL; Basophil% 0.3 % (0-1); Eosinophil# 0.14 X10^3/uL; Eosinophils% 1.6 % (0-5); Hemoglobin 8.3 g/dL (13.0-16.5); Lymphocyte % 3.3 % (19-41); Mean Corp Hgb Conc 30.7 g/dL (32-36); Mean Corpuscular Hgb 28.9 pg (27.0-32.0); Mean Corpuscular Volume 94.1 fL (80-94); Mean Platelet Vol. 10.3 fl (6.2-12.0); Monocyte# 0.95 X10^3/uL; Monocyte% 10.6 % (0-10); NRBC Flagged by Analyzer 0 % (0-5); Neutrophil # 7.51 X10^3/uL (2.7-7.7); Neutrophil % 83.6 % (47-70); POSITIVE DIFFERENTIAL YES; Platelet Count 214 K/mm3 (150-450); RBC Distribution Width CV 14.8 % (11.6-14.6); Red Blood Count 2.87 M/mm3 (4.6-6.2)
[2020-05-06 06:26] LABS: Differential Indicated SCAN CRITERIA MET
[2020-05-06 06:49] LABS: Anion Gap 6 (5-15); BUN 22 mg/dL (7-18); BUN/Creat Ratio 13.6 RATIO (10-20); Calcium,Total 8.3 mg/dL (8.5-10.1); Chloride 114 mmol/L (98-107); Creatinine, Serum 1.62 mg/dL (0.70-1.30); EST Glomerular Filtration Rate 44 mL/min (>60); Est Glom Filt Rate - Afr Amer 53 mL/min (>60); Glucose 148 mg/dL (74-106); Potassium 3.8 mmol/L (3.5-5.1); Sodium Level 144 mmol/L (136-145)
[2020-05-06 06:55] LABS: Differential Comment SCANNED
[2020-05-06] MEDS: Insulin Lispro 100 UNIT/ML INSULN.PEN SC (06:59)
[2020-05-06 07:00] LABS: Bedside Glucose 153 mg/dL (70-110)
[2020-05-06] MEDS: Budesonide Respules 0.5 MG/2 ML AMPUL.NEB. INHALATION ×2 (07:14→19:20)
--- NOTE | 2020-05-06 08:15 | RAD_ITS ---
STUDY: X-RAY CHEST REASON FOR EXAM: Male, 79 years old. HYPOXIA, SOB TECHNIQUE: Single AP portable view of the chest. COMPARISON: Comparison is made with prior examination dated 05/04/2020. FINDINGS: EKG electrodes are seen. Persistent infiltrate in the left lower lobe with blunting of the left costophrenic angle. This has progressed as compared to prior study. There is borderline cardiomegaly. Normal mediastinum and daphne. Normal visualized pulmonary arteries. There is atherosclerotic calcification of the aortic arch with tortuosity. There are diffuse degenerative changes of the visualized thoracic spine. There is degenerative osteoarthritis of the bilateral shoulders. There is no demonstrated abnormality of the visualized soft tissue structures of the upper abdomen. RAD/Chest 1 View (Portable) IMPRESSION: Slight progression in the left lower lobe infiltrate with blunting of the left costophrenic angle. Electronically Signed: Matt Aaron, at 9:11 EDT , Service support ,
[2020-05-06] MEDS: Tamsulosin HCl 0.4 MG Capsule PO (08:19)
[2020-05-06] MEDS: Heparin Injection (Vial) 5,000 UNIT/ML VIAL 5000 UNIT SC ×2 (08:19→22:45)
[2020-05-06] MEDS: Iron Polysaccharide Complex 150 MG CAPSULE PO (08:19)
[2020-05-06] MEDS: Aspirin E.C. 81 MG Tablet PO (08:19)
[2020-05-06] MEDS: TICAGRELOR 90 MG TABLET PO ×2 (08:19→22:44)
[2020-05-06] MEDS: Amiodarone 200 MG Tablet PO (08:19)
[2020-05-06] MEDS: 0.9% Saline Lock 10 ML Syringe IV ×2 (08:19→14:15)
[2020-05-06] MEDS: Carvedilol 3.125 MG TABLET PO ×2 (08:20→22:45)
[2020-05-06] MEDS: Pantoprazole Sodium 40 MG Tablet PO (08:20)
[2020-05-06 08:21] LABS: Base Excess -3 mmol/L (-2 to +2); Bicarbonate 21.5 mmol/L (22-26); Blood Gas Specimen Type ART; O2 Delivery Device Cannula; PO2 68 mmHG (75-100); SITE R Brach; SO2 94 % (95-99); Total Carbon Dioxide 23 mmol/L; pCO2 31.2 mmHg (35-45); pH 7.45 (7.35-7.45)
[2020-05-06] MEDS: Sodium Ferric Gluconat 250 MG in 0.9% Normal Saline 250 ML 135 MG IV (10:30)
[2020-05-06 11:56] LABS: Bedside Glucose 138 mg/dL (70-110)
--- NOTE | 2020-05-06 13:34 | PN_ITS ---
Patient Problems: Active and Suspected Problems (Last Updated 05/04/20 @ 13:[address] Madison Zapata MD) Transient hypotension (Acute) life vest (Acute) Reason for Visit: SOB Subjective: Pt with significant SOB at rest, worse with exertion, with conversational dyspnea. No new LE edema. No chest pain, tightness, heaviness. No palp. Vitals/I&O's: Vital Signs Temp Pulse Resp BP Pulse Ox 97.6 F L 67 19 H 102/65 96 05/06/20 10:30 05/06/20 10:30 05/06/20 10:30 05/06/20 10:30 05/06/20 10:30 Oxygen Flow Rate (L/min) 4 Oxygen Delivery Method Nasal Cannula Weight: 186 lb 3.203 oz Body Mass Index (BMI) 28.3 Intake and Output for Last 24 Hours 05/04/20 05/05/20 05/06/20 23:59 23:59 23:59 Intake Total 2455.83 / 2575.83 3419.17 / 3619.17 440 / 440 Output Total 1250 / 1625 750 / 750 Balance 2455.83 / 2575.83 2169.17 / 1994.17 -310 / -310 General: Alert, Oriented x3, Cooperative HEENT: Atraumatic, PERRLA, EOMI, Normocephalic Neck: Supple, No JVD, Negative Carotid Bruits Lungs: Clear to auscultation, Diminished Cardiovascular: Regular rate, No murmurs Abdomen: Bowel Sounds Present, Soft, Non Tender Extremities: No edema, Capillary Refill Less than 3 Seconds Skin: No rashes, No breakdown Musculoskeletal: No Tenderness to Palpation of Joints or Extremities Neurological: Cranial nerves II-XII grossly intact Psych/Mental Status: Normal Affect, Appropriate, Alert and oriented to time, place, person, mood and affect Laboratory Results 05/05/20 15:23: Blood Type O POSITIVE, Antibody Screen NEGATIVE, Crossmatch See Detail 05/05/20 15:23: Segment Blood Type Cancelled 05/05/20 16:50: POC Glucose 142 H 05/05/20 22:08: POC Glucose 130 H 05/06/20 05:45: WBC 9.0, RBC 2.87 L, Hgb 8.3 L, Hct 27.0 L, MCV 94.1 H, MCH 28.9, MCHC 30.7 L, RDW Std Deviation 51.0 H, RDW Coeff of Kranthi 14.8 H, Plt Count 214, MPV 10.3, Immature Gran % (Auto) 0.600, Neut % (Auto) 83.6 H, Lymph % (Auto) 3.3 L, [place] % (Auto) 10.6 H, Eos % (Auto) 1.6, Baso % (Auto) 0.3, Absolute Neuts (auto) 7.5, Absolute Lymphs (auto) 0.30 L, Nucleated RBC % 0, Differential Comment SCANNED 05/06/20 05:45: Sodium 144, Potassium 3.8, Chloride 114 H, Carbon Dioxide 24.0, Anion Gap 6, BUN 22 H, Creatinine 1.62 H, Estim Creat Clear Calc 34.60, Est GFR (MDRD) Af Amer 53 L, Est GFR (MDRD) Non-Af 44 L, BUN/Creatinine Ratio 13.6, Glucose 148 H, Calcium 8.3 L 05/06/20 06:57: POC Glucose 153 H 05/06/20 08:14: Specimen Type ART, Sample Site R Brach, pH 7.45, Bicarbonate Actual 21.5 L, Total CO2 23, Base Excess -3 L, O2 Saturation 94 L, ABG pCO2 31.2 L, ABG pO2 68 L, O2 Delivery Device Cannula, Liter Flow 2.0 05/06/20 11:43: POC Glucose 138 H Current Medications Acetaminophen (Acetaminophen 325 Mg Tablet) 650 mg PO Q6H PRN PRN PRN Reason: Pain Score 1-10/Temp > 100.7 F Last Admin: 05/05/20 22:03 Dose: 650 mg Documented by: Amiodarone HCl (Amiodarone 200 Mg Tablet) 200 mg PO DAILY [facility] Last Admin: 05/06/20 08:19 Dose: 200 mg Documented by: Aspirin (Aspirin E.C. 81 Mg Tablet) 81 mg PO DAILY@0800 [facility] Last Admin: 05/06/20 08:19 Dose: 81 mg Documented by: Atorvastatin Calcium (Atorvastatin Calcium 80 Mg Tablet) 80 mg PO QHS [facility] Last Admin: 05/05/20 22:05 Dose: 80 mg Documented by: Budesonide (Budesonide Respules 0.5 Mg/2 Ml Ampul.Neb.) 0.5 mg INHALATION BID.RT [facility] Last Admin: 05/06/20 07:14 Dose: 0.5 mg Documented by: Carvedilol (Carvedilol 3.125 Mg Tablet) 3.125 mg PO BID [facility] Last Admin: 05/06/20 08:20 Dose: 3.125 mg Documented by: Heparin Sodium (Porcine) (Heparin Injection (Vial) 5,000 Unit/Ml Vial) 5,000 unit SC Q12 [facility] Last Admin: 05/06/20 08:19 Dose: 5,000 unit Documented by: Hydroxyzine Pamoate (Hydroxyzine Rosita 25 Mg Capsule) 25 mg PO QHS PRN PRN PRN Reason: SLEEP Insulin Human Lispro (Insulin Lispro 100 Unit/Ml Insuln.Pen) 0 unit SC ACHS [facility]; Protocol Last Admin: 05/06/20 12:05 Dose: Not Given Documented by: Losartan Potassium (Losartan Potassium 25 Mg Tablet) 25 mg PO DAILY [facility] Last Admin: 05/06/20 11:19 Dose: Not Given Documented by: Ondansetron HCl (Ondansetron 4 Mg/2 Ml Vial) 4 mg IV Q8H PRN PRN PRN Reason: NAUSEA/VOMITING Pantoprazole Sodium (Pantoprazole Sodium 40 Mg Tablet) 40 mg PO DAILY [facility] Last Admin: 05/06/20 08:20 Dose: 40 mg Documented by: Polysaccharide Iron Complex (Iron Polysaccharide Complex 150 Mg Capsule) 150 mg PO DAILYCM [facility] Last Admin: 05/06/20 08:19 Dose: 150 mg Documented by: Senna/Docusate Sodium (Senna/Docusate Sodium 1 Tablet) 2 tablet PO BID PRN PRN PRN Reason: Constipation Sodium Chloride (0.9% Saline Lock 10 Ml Syringe) 10 - 40 ml IV UD PRN PRN Reason: SALINE FLUSH Last Admin: 05/06/20 08:19 Dose: 10 ml Documented by: Tamsulosin HCl (Tamsulosin Hcl 0.4 Mg Capsule) 0.4 mg PO DAILY@0830 [facility] Last Admin: 05/06/20 08:19 Dose: 0.4 mg Documented by: Ticagrelor (Ticagrelor 90 Mg Tablet) 90 mg PO BID [facility] Last Admin: 05/06/20 08:19 Dose: 90 mg Documented by: STROKE Vital Signs/Narrative: Vital Signs Temp Pulse Resp BP Pulse Ox 05/06/20 10:30 97.6 F L 67 19 H 102/65 96 Medical Necessity - Tobacco Use Smoking Status: Never smoker Tobacco Use: Non-smoker Assessment/Plan All Active Problems (Last Updated 05/04/20 @ 13:[address] Madison Zapata MD) Transient hypotension (Acute) life vest (Acute) 1. Bradycardia/Hypotension - BP and heart rate significantly improved with new doses. Continue these for now. 2. Indeterminate troponin - unclear etiology. cardiology following: no further workup at this time. 3. Ischemic CM/ chronic systolic CHF with acute respiratory insufficiency - off fluids. restart lasix. repeat CXR with slight progression of LLL infiltrate. No fever or leukocytosis. continue incentive spirometer. 4. Iron deficiency anemia - venofer x 1, started po iron, check stool for occult blood. had transfusion reaction to 1 unit of blood yesterday and did not get the entire unit. CBC in AM. 5. pAfib - NSR now. care as per #1. He is not anticoagulated 6. DMt2 - SSI, not on DM meds at home. 7. CAD - had stent 04/19/2020 - continue asa/statin/coreg/brillinta/losartan 8. CKDIII - does not appear to be significantly worse than baseline. 9. Suspected sleep apnea - pt has had frequent apneic episodes while sleeping during this admission. Strongly advised sleep study at discharge. DVT ppx: heparin DC planning: monitor HR/BP overnight. This patient was seen by Syed Dorsey PA-C under the supervision of Doctor Valdivia.
--- NOTE | 2020-05-06 13:48 | CASEMGMT ---
Pt states he has both a living will and health care POA that names his son Johnny Yañez. Pt made aware that documents are not on file at [facility] [place] and requested documents be brought in when able. LITZY Little
--- NOTE | 2020-05-06 13:48 | CASEMGMT ---
This RN CM to room per request of pt/[id number]-tv-nbu at this time to discuss discharge planning/options at this time. This RN CM discussed HHC, oxygen qualification, as well as SNF options and pt states would like to go home with resumption of HHC and possible home oxygen, if qualifies, at discharge. Pt would like [facility] for home oxygen as his other equipment is through them as well. This RN CM answered all questions for pt/ipiqwfog-of-ipk at this time, spending extra time going over all options, pros/cons, etc. CM to follow for any further discharge planning/needs. SStcristina RN CM
--- NOTE | 2020-05-06 13:50 | CASEMGMT ---
Audit Spec GENTRY and RNCM met with pt dgt in law. Provided information about Palliative Medicine program and TCU. Pt not agreeable at this time but dgt in law appreciative of information and will keep for reference once pt returns home. LITZY Little
[2020-05-06] MEDS: Furosemide 20 MG Tablet PO (14:15)
[2020-05-06] MEDS: Losartan Potassium 25 MG Tablet PO (14:15)
--- NOTE | 2020-05-06 15:33 | CASEMGMT ---
Pt does qualify for home oxygen 2liters w/ exertion at this time and would like [facility]. Order faxed to [facility] at this time. [facility] states they will try and get someone out tonight but if not, then they will need called when pt leaving to bring tank. Green sheet left on chart for [facility] and oxygen. SStcristina RIVAS CM
[2020-05-06 16:40] LABS: Bedside Glucose 143 mg/dL (70-110)
[2020-05-06] MEDS: hydrOXYzine PAM 25 MG Capsule PO (22:45)
[2020-05-06] MEDS: Atorvastatin Calcium 80 MG Tablet PO (22:45)
[2020-05-06 23:27] LABS: Bedside Glucose 149 mg/dL (70-110)
[2020-05-07 03:02] VITALS: PULSE 68
[2020-05-07 04:55] VITALS: BP 111/54; PULSE 78; RESP 20; TEMP 36.6; O2SAT 94
[2020-05-07 06:14] LABS: Absolute Lymphocyte Count 0.38 X10^3/uL (0.83-4.51); Absolute Neutrophil Count 6.7 X10^3/uL (2.0-7.7); Basophil# 0.02 X10^3/uL; Basophil% 0.2 % (0-1); Eosinophil# 0.17 X10^3/uL; Eosinophils% 2.1 % (0-5); Hematocrit 25.8 % (40-54); Lymphocyte # 0.38 X10^3/ul (4.0); Lymphocyte % 4.7 % (19-41); Mean Corpuscular Volume 93.5 fL (80-94); Mean Platelet Vol. 10.4 fl (6.2-12.0); Monocyte# 0.82 X10^3/uL; Monocyte% 10.1 % (0-10); NRBC Flagged by Analyzer 0 % (0-5); Neutrophil # 6.66 X10^3/uL (2.7-7.7); Neutrophil % 82.3 % (47-70); POSITIVE DIFFERENTIAL YES; Platelet Count 218 K/mm3 (150-450); RBC Distribution Width SD 50.7 fl (35.1-43.9); Red Blood Count 2.76 M/mm3 (4.6-6.2); White Blood Count 8.1 K/mm3 (4.4-11.0)
[2020-05-07 06:33] LABS: Differential Indicated SCAN CRITERIA MET
[2020-05-07 06:35] VITALS: PULSE 66
[2020-05-07 06:39] LABS: Anion Gap 6 (5-15); BUN 24 mg/dL (7-18); BUN/Creat Ratio 14.3 RATIO (10-20); Calcium,Total 8.1 mg/dL (8.5-10.1); Chloride 111 mmol/L (98-107); Creatinine, Serum 1.68 mg/dL (0.70-1.30); EST Glomerular Filtration Rate 42 mL/min (>60); Est Glom Filt Rate - Afr Amer 51 mL/min (>60); Estimated Creatinine Clearance 33.36 ml/min; Glucose 137 mg/dL (74-106); Potassium 3.6 mmol/L (3.5-5.1); Sodium Level 141 mmol/L (136-145)
[2020-05-07 06:49] LABS: Differential Comment SCANNED; Hypochromasia RARE
[2020-05-07] MEDS: Budesonide Respules 0.5 MG/2 ML AMPUL.NEB. INHALATION (07:19)
--- NOTE | 2020-05-07 08:00 | NURSING ---
This RN assisted the pt to change his life vest battery.
[2020-05-07] MEDS: Iron Polysaccharide Complex 150 MG CAPSULE PO (08:09)
[2020-05-07] MEDS: Aspirin E.C. 81 MG Tablet PO (08:09)
[2020-05-07] MEDS: Tamsulosin HCl 0.4 MG Capsule PO (08:09)
[2020-05-07] MEDS: TICAGRELOR 90 MG TABLET PO (10:00)
[2020-05-07] MEDS: Furosemide 20 MG Tablet PO (10:00)
[2020-05-07] MEDS: Carvedilol 3.125 MG TABLET PO (10:01)
[2020-05-07] MEDS: Amiodarone 200 MG Tablet PO (10:01)
[2020-05-07] MEDS: Losartan Potassium 25 MG Tablet PO (10:01)
[2020-05-07] MEDS: Pantoprazole Sodium 40 MG Tablet PO (10:01)
[2020-05-07] MEDS: Heparin Injection (Vial) 5,000 UNIT/ML VIAL 5000 UNIT SC (10:01)
[2020-05-07 10:11] LABS: Bedside Glucose 146 mg/dL (70-110)
[2020-05-07] MEDS: Insulin Lispro 100 UNIT/ML INSULN.PEN SC (12:00)
[2020-05-07 12:07] LABS: Bedside Glucose 222 mg/dL (70-110)
--- NOTE | 2020-05-07 12:29 | PN.CARD_ITS ---
Subjectve: 79-year-old white male had recent stenting of the left main. He was admitted for bradycardia and hypotension. This morning blood pressure is normal. Heart rates in the 60s. Hemoglobin is stable. Ejection fraction is known to be 25%. Objective: Vital Signs Temp Pulse Resp BP Pulse Ox 97.9 F 80 18 107/46 L 95 05/07/20 09:58 05/07/20 09:58 05/07/20 09:58 05/07/20 09:58 05/07/20 09:58 Oxygen Flow Rate (L/min) [ 2 AMBULATION with Oxygen] Oxygen Flow Rate (L/min) 2 Oxygen Delivery Method Nasal Cannula Weight: 186 lb 3.203 oz Body Mass Index (BMI) 28.3 Intake and Output for Last 24 Hours 05/05/20 05/06/20 05/07/20 23:59 23:59 23:59 Intake Total 3419.17 / 3619.17 1190 / 1190 400 / 400 Output Total 1250 / 1625 1700 / 1700 500 / 500 Balance 2169.17 / 1993.17 -510 / -510 -100 / -100 General: No Acute Distress HEENT: PERRL, EOMI, Sclera Non Icteric Neck: Supple Lungs: Clear to auscultation Cardiovascular: Regular Rhythm, No Murmurs Abdomen: Bowel Sounds Present, Soft, Non Tender, No HSM, No Organomegaly Psych/Mental Status: Appropriate, Normal Affect 05/07/20 05:25: Sodium 141, Potassium 3.6, Chloride 111 H, Carbon Dioxide 24.0, Anion Gap 6, BUN 24 H, Creatinine 1.68 H, Est GFR (MDRD) Af Amer 51 L, Est GFR (MDRD) Non-Af 42 L, BUN/Creatinine Ratio 14.3, Glucose 137 H, Calcium 8.1 L 05/07/20 05:30: WBC 8.1, RBC 2.76 L, Hgb 8.0 L, Hct 25.8 L, MCV 93.5, MCH 29.0, MCHC 31.0 L, Plt Count 218, MPV 10.4, Immature Gran % (Auto) 0.600, Neut % (Auto) 82.3 H, Lymph % (Auto) 4.7 L, [place] % (Auto) 10.1 H, Eos % (Auto) 2.1, Baso % (Auto) 0.2, Absolute Neuts (auto) 6.7, Nucleated RBC % 0 Rhythm: EKG: ECHO: Stress Test: Cardiac Cath: PCI: CT Surgery: Holter monitor: EPS: PPM: CXR: Chest CT Scan: Medical Necessity - Tobacco Use Smoking Status: Never smoker Tobacco Use: Non-smoker Assessment/Plan Ischemic dilated cardiomyopathy, compensated, from cardiac standpoint patient can be discharged Blood pressures and heart rate stabilized. Hemoglobin stabilized Renal insufficiency stable
--- NOTE | 2020-05-07 12:40 | DCINST_ITS ---
- Discharge Diagnoses Current Active Problems: Current Active and Chronic Problems (Last Updated 05/04/20 @ 13:[address] Madison Zapata MD) Transient hypotension (Acute) life vest (Acute) Paroxysmal atrial fibrillation (Chronic 04/19/20) History of coronary artery stent placement (Chronic 04/19/20) PCI-DANAY-Mid LMT w/ 4.0 x 8 mm Xience [place] Stent 04/19/2020 Chronic kidney disease (CKD) (Chronic) Non-STEMI (non-ST elevated myocardial infarction) (Chronic 04/19/20) Atherosclerotic heart disease [place] coronary artery w/angina pectoris (Chronic) Ischemic cardiomyopathy (Chronic) Essential (primary) hypertension (Chronic) Hyperlipidemia (Chronic) You will use the following diet at home:: Calorie/Carbohydrate Controlled (specify 1200, 1400, etc) - 1800 kristen Your food should be the consistency of: Regular Your liquids should be the consistency of: Regular/Thin Discharge Activity: Return to Normal Activity Weight Bearing Status: Full weight bearing Additional Instructions: RESUME METFORMIN 500 MG ONCE A DAY. USE OXYGEN AT TWO LITERS PER MIN Allergies/Adverse Reactions: Allergies No Known Allergies Allergy (Verified 05/04/20 11:47) Medications to take at Discharge tamsulosin 0.4 mg capsule 0.4 mg PO DAILY 09/17/19 aspirin 81 mg tablet,delayed release 81 mg PO DAILY@0800 09/30/19 atorvastatin 80 mg tablet 80 mg PO QHS 04/28/20 furosemide 20 mg tablet 20 mg PO DAILY 04/28/20 pantoprazole 40 mg tablet,delayed release 40 mg PO DAILY 04/28/20 spironolactone 25 mg tablet 12.5 mg PO DAILY tab 04/28/20 ticagrelor 90 mg tablet 90 mg PO BID 04/28/20 Nitroglycerin (INPATIENT USE) [Nitrostat] 0.4 mg SUBLINGUAL Q5M PRN 05/04/20 Amiodarone HCl [Cordarone] 200 mg PO DAILY tablet 05/07/20 Carvedilol [Coreg (Beta Mimi)] 3.125 mg PO BID tablet 05/07/20 Furosemide [Lasix] 20 mg PO DAILY tablet 05/07/20 Iron Polysaccharide Complex [Ferrex 150] 150 mg PO DAILYCM #30 cap 05/07/20 Losartan Potassium [Cozaar] 25 mg PO DAILY #30 tab 05/07/20 hydrOXYzine pamoate capsule [Vistaril pamoate capsule] 25 - 50 mg PO QHS PRN PRN #30 cap 05/07/20 The following prescriptions were given: Losartan Potassium [Cozaar] 25 mg PO DAILY #30 tab Transmission Status: Pending to [facility] Iron Polysaccharide Complex [Ferrex 150] 150 mg PO DAILYCM #30 cap Transmission Status: Pending to [email or web address] hydrOXYzine pamoate capsule [Vistaril pamoate capsule] 25 - 50 mg PO QHS PRN PRN #30 cap PRN Reason: SLEEP Transmission Status: Pending to [facility] [[email or web address] Primary Care Physician: Vladimir Healy MD [Primary Care Provider] - Please follow up with your Primary Care Physician in: THIS WEEK Test Results: Test results from this visit will be discussed in further detail at your follow- up appointment, if applicable. Please Follow Up With: Mikhail Siu MD When: IN THE NEXT 2 WEEKS
[2020-05-07 13:57] VITALS: BP 106/41; PULSE 78; RESP 18; TEMP 36.6; O2SAT 98
[2020-05-07 14:34] VITALS: PULSE 64
--- NOTE | 2020-05-07 14:47 | PCM.HOSP.N ---
Hospitalist Note Patient's oxygen saturation at rest on room air on 05/06/2020 was 95%, the patient's pulse ox ambulating on room air was 84% on that same date, his O2 sat with 2 L of oxygen ambulating on that date was 92%. Patient requires portable oxygen to be set up at his home, he will be expected to use it on activities in the home and outside the home.
--- NOTE | 2020-05-07 16:37 | PCM.DC.SUM ---
Discharge Date and Diagnosis - Problem List Patient Problems: Active and Suspected Problems (Last Updated 05/04/20 @ 13:[address] Madison Zapata MD) Transient hypotension (Acute) life vest (Acute) Date of Admission: 05/04/20 Date of Discharge: 05/07/20 - Primary Discharge Diagnosis Acute Problems: Active Problems (Last Updated 05/04/20 @ 13:[address] Madison Zapata MD) #1 bradycardia with hypotension-secondary to cardiac medications #2 intermediate troponin-etiology unclear #3 ischemic cardiomyopathy #4 chronic systolic congestive heart failure #5 hypoxia secondary to #4 #6 iron deficiency anemia - etiology unclear, not felt to be secondary to undiagnosed bleeding #7 type 2 diabetes #8 coronary artery disease #9 chronic kidney disease stage III secondary to type 2 diabetes #10 suspected sleep apnea - Secondary Discharge Diagnosis Chronic Problems: Chronic Problems (Last Updated 05/04/20 @ 13:[address] 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 04/19/20) History of coronary artery stent placement (Chronic 04/19/20) PCI-DANAY-Mid LMT w/ 4.0 x 8 mm Xience [place] Stent 04/19/2020 Chronic kidney disease (CKD) (Chronic) Non-STEMI (non-ST elevated myocardial infarction) (Chronic 04/19/20) Atherosclerotic heart disease [place] coronary artery w/angina pectoris (Chronic) Ischemic cardiomyopathy (Chronic) Premature ventricular contractions (Chronic) Essential (primary) hypertension (Chronic) Hyperlipidemia (Chronic) Hospital Course and Treatment Operations: None Procedures: None Summary of Care Provided: The patient is a 79 year old M was seen in the emergency room at [facility] with a chief complaint of severe fatigue and debility. Patient had recently been released from a tertiary hospital where he underwent stent placement in the left main coronary artery, at that time it was noted that his ejection fraction had declined to 25% on an echocardiogram. Patient was discharged from this hospital with a LifeVest to home, but the patient has been feeling tired and fatigued and came to the ER for evaluation. Evaluation in the emergency room included an EKG which showed a sinus bradycardia and an old anterior infarct, patient was hypotensive in the emergency room and given a bolus of normal saline which brought his pressure up. Cardiology was contacted and agreed to see the patient in consultation after he was admitted. Patient was admitted to PCU, his cardiac medications were adjusted, it was noted that he was hypoxic and he was placed on oxygen at 2 L/min. Patient's lisinopril was stopped due to concerns that it might be causing a persistent cough, chest x-ray was read out as showing a left lower lobe infiltrate but the patient did not clinically appear to have any pneumonia or CHF. Patient was seen by PT and OT and initially was somnolent during his admission-this was felt to possibly be secondary to sleep deprivation and undiagnosed sleep apnea. Patient was urged to follow-up with his PCP for testing as an outpatient and I contacted the patient's PCP Dr. Healy to go over this with him. In addition, patient was given IV iron due to iron deficiency anemia. Patient improved during his hospital stay, on 05/07/2020, patient was seen and examined: On examination he appeared in good health and spirits. Vital signs as documented. Skin warm and dry and without overt rashes. Neck without JVD, neck was supple, trachea midline, thyroid was normal. Lungs clear bilaterally, normal air movement was noted. Heart exam notable for regular rhythm, normal sounds and absence of murmurs, rubs or gallops. Abdomen unremarkable and without evidence of organomegaly, masses, or abdominal aortic enlargement. Bowel sounds are present, abdomen is not distended. Extremities nonedematous, no cyanosis was noted, no clubbing was noted. Neuro: Cranial nerves II through XII are grossly intact, no focal motor deficits were noted, sensation to light touch and pinprick intact, motor exam 5/5 throughout. Psych: Patient is alert and oriented x3, he does not appear anxious or depressed, he does not appear agitated. Patient required supplemental oxygen at the time of discharge, he required 2 L of O2 via nasal cannula and was expected to use this when ambulating. Patient was discharged in stable condition on 05/07/2020. Patient Problems: Active and Suspected Problems (Last Updated 05/04/20 @ 13:[address] Madison Zapata MD) Transient hypotension (Acute) life vest (Acute) - Physical Exam Vitals/I&O's: Vital Signs Temp Pulse Resp BP Pulse Ox 97.9 F 64 18 106/41 L 98 05/07/20 13:57 05/07/20 14:34 05/07/20 13:57 05/07/20 13:57 05/07/20 13:57 Oxygen Flow Rate (L/min) [ 2 AMBULATION with Oxygen] Oxygen Flow Rate (L/min) 2 Oxygen Delivery Method Nasal Cannula Weight: 84.459 kg Body Mass Index (BMI) 28.3 Intake and Output for Last 24 Hours 05/05/20 05/06/20 05/07/20 23:59 23:59 23:59 Intake Total 3419. / 3619.17 1190 / 1190 400 / 400 Output Total 1250 / 1625 1700 / 1700 500 / 500 Balance 2169. / 1993.17 -510 / -510 -100 / -100 Microbiology Past 72 Hours 05/06/20 15:00 Stool Stool Occult Blood (JACE) - Final Laboratory Results 05/06/20 16:25: POC Glucose 143 H 05/06/20 22:39: POC Glucose 149 H 05/07/20 05:25: Sodium 141, Potassium 3.6, Chloride 111 H, Carbon Dioxide 24.0, Anion Gap 6, BUN 24 H, Creatinine 1.68 H, Estim Creat Clear Calc 33.36, Est GFR (MDRD) Af Amer 51 L, Est GFR (MDRD) Non-Af 42 L, BUN/Creatinine Ratio 14.3, Glucose 137 H, Calcium 8.1 L 05/07/20 05:30: WBC 8.1, RBC 2.76 L, Hgb 8.0 L, Hct 25.8 L, MCV 93.5, MCH 29.0, MCHC 31.0 L, RDW Std Deviation 50.7 H, RDW Coeff of Kranthi 15.0 H, Plt Count 218, MPV 10.4, Immature Gran % (Auto) 0.600, Neut % (Auto) 82.3 H, Lymph % (Auto) 4.7 L, [place] % (Auto) 10.1 H, Eos % (Auto) 2.1, Baso % (Auto) 0.2, Absolute Neuts (auto) 6.7, Absolute Lymphs (auto) 0.38 L, Nucleated RBC % 0, Differential Comment SCANNED, Hypochromasia RARE 05/07/20 06:36: POC Glucose 146 H 05/07/20 11:59: POC Glucose 222 H Current Medications Acetaminophen (Acetaminophen 325 Mg Tablet) 650 mg PO Q6H PRN PRN PRN Reason: Pain Score 1-10/Temp > 100.7 F Last Admin: 05/05/20 22:03 Dose: 650 mg Documented by: Amiodarone HCl (Amiodarone 200 Mg Tablet) 200 mg PO DAILY [facility] Last Admin: 05/07/20 10:01 Dose: 200 mg Documented by: Aspirin (Aspirin E.C. 81 Mg Tablet) 81 mg PO DAILY@0800 [facility] Last Admin: 05/07/20 08:09 Dose: 81 mg Documented by: Atorvastatin Calcium (Atorvastatin Calcium 80 Mg Tablet) 80 mg PO QHS [facility] Last Admin: 05/06/20 22:45 Dose: 80 mg Documented by: Budesonide (Budesonide Respules 0.5 Mg/2 Ml Ampul.Neb.) 0.5 mg INHALATION BID.RT [facility] Last Admin: 05/07/20 07:19 Dose: 0.5 mg Documented by: Carvedilol (Carvedilol 3.125 Mg Tablet) 3.125 mg PO BID [facility] Last Admin: 05/07/20 10:01 Dose: 3.125 mg Documented by: Furosemide (Furosemide 20 Mg Tablet) 20 mg PO DAILY [facility] Last Admin: 05/07/20 10:00 Dose: 20 mg Documented by: Heparin Sodium (Porcine) (Heparin Injection (Vial) 5,000 Unit/Ml Vial) 5,000 unit SC Q12 [facility] Last Admin: 05/07/20 10:01 Dose: 5,000 unit Documented by: Hydroxyzine Pamoate (Hydroxyzine Rosita 25 Mg Capsule) 25 mg PO QHS PRN PRN PRN Reason: SLEEP Last Admin: 05/06/20 22:45 Dose: 25 mg Documented by: Insulin Human Lispro (Insulin Lispro 100 Unit/Ml Insuln.Pen) 0 unit SC ACHS [facility]; Protocol Last Admin: 05/07/20 12:00 Dose: 2 u Documented by: Losartan Potassium (Losartan Potassium 25 Mg Tablet) 25 mg PO DAILY [facility] Last Admin: 05/07/20 10:01 Dose: 25 mg Documented by: Ondansetron HCl (Ondansetron 4 Mg/2 Ml Vial) 4 mg IV Q8H PRN PRN PRN Reason: NAUSEA/VOMITING Pantoprazole Sodium (Pantoprazole Sodium 40 Mg Tablet) 40 mg PO DAILY [facility] Last Admin: 05/07/20 10:01 Dose: 40 mg Documented by: Polysaccharide Iron Complex (Iron Polysaccharide Complex 150 Mg Capsule) 150 mg PO DAILYCM [facility] Last Admin: 05/07/20 08:09 Dose: 150 mg Documented by: Senna/Docusate Sodium (Senna/Docusate Sodium 1 Tablet) 2 tablet PO BID PRN PRN PRN Reason: Constipation Sodium Chloride (0.9% Saline Lock 10 Ml Syringe) 10 - 40 ml IV UD PRN PRN Reason: SALINE FLUSH Last Admin: 05/06/20 14:15 Dose: 20 ml Documented by: Tamsulosin HCl (Tamsulosin Hcl 0.4 Mg Capsule) 0.4 mg PO DAILY@0830 [facility] Last Admin: 05/07/20 08:09 Dose: 0.4 mg Documented by: Ticagrelor (Ticagrelor 90 Mg Tablet) 90 mg PO BID [facility] Last Admin: 05/07/20 10:00 Dose: 90 mg Documented by: Discharge Activity: Return to Normal Activity Weight Bearing Status: Full weight bearing Home Medications: Medications to take at Discharge tamsulosin 0.4 mg capsule 0.4 mg PO DAILY 09/17/19 aspirin 81 mg tablet,delayed release 81 mg PO DAILY@0800 09/30/19 atorvastatin 80 mg tablet 80 mg PO QHS 04/28/20 furosemide 20 mg tablet 20 mg PO DAILY 04/28/20 pantoprazole 40 mg tablet,delayed release 40 mg PO DAILY 04/28/20 spironolactone 25 mg tablet 12.5 mg PO DAILY tab 04/28/20 ticagrelor 90 mg tablet 90 mg PO BID 04/28/20 Nitroglycerin (INPATIENT USE) [Nitrostat] 0.4 mg SUBLINGUAL Q5M PRN 05/04/20 Amiodarone HCl [Cordarone] 200 mg PO DAILY tab 05/07/20 Carvedilol [Coreg (Beta Mimi)] 3.125 mg PO BID tab 05/07/20 Furosemide [Lasix] 20 mg PO DAILY tab 05/07/20 Iron Polysaccharide Complex [Ferrex 150] 150 mg PO DAILYCM #30 cap 05/07/20 Losartan Potassium [Cozaar] 25 mg PO DAILY #30 tab 05/07/20 hydrOXYzine pamoate capsule [Vistaril pamoate capsule] 25 - 50 mg PO QHS PRN PRN #30 cap 05/07/20 Following Prescriptions Were Given to Patient: Losartan Potassium [Cozaar] 25 mg PO DAILY #30 tab Transmission Status: Received by [facility] Iron Polysaccharide Complex [Ferrex 150] 150 mg PO DAILYCM #30 cap Transmission Status: Received by [facility] hydrOXYzine pamoate capsule [Vistaril pamoate capsule] 25 - 50 mg PO QHS PRN PRN #30 cap PRN Reason: SLEEP Transmission Status: Received by [facility] Primary Care Physician: Vladimir Healy MD [Primary Care Provider] - Please follow up with your Primary Care Physician in: THIS WEEK Please Follow Up With: Mikhail Siu MD When: IN THE NEXT 2 WEEKS Disposition: Home Minutes spent on discharge:: 33 Patient Condition:: Stable Medical Necessity - Tobacco Use Smoking Status: Never smoker Tobacco Use: Non-smoker Meaningful Use Info Meaningful Use Diagnoses (Choose all that apply): None applicable Inpatient E&M: 58053 Disch Hosp
--- NOTE | 2020-05-09 17:06 | CASEMGMT ---
ROB [facility]ERNON Discharge Follow-up Phone Call: REGIS: Guadalupe Strata: 3 Call Date: 05/09/2020 Discharge Date: 05/07/2020 Time of Call: 1700 Admitting Diagnosis: Bradycardia, hypotension Discharge follow-up call placed to pt. Pt's Pavithra answered and stated pt is currently resting and that he has been doing fine since discharge. They visited Dr. Cottrell today and are scheduled to see ARMANDO Koroma [facility] on 05/[facility]. They received the O2 without difficulty. Pt's states home health called today and they are scheduled to visit tomorrow. Pt's denied any questions or concerns at this time. Sofia Dugan RN CM
== END 2020-05-07 16:49 | disposition home or self-care (01) | DRG 281 ==
LOC: ED 12:48 → PCU 13:57
PROVIDERS: Physician Assistant; Admitting Provider Hospitalist; Emergency Provider Emergency Medicine; PCP Family Medicine; Visit Provider Internal Medicine
DX: I95.2 Hypotension due to drugs (principal); I21.4 Non-ST elevation (NSTEMI) myocardial infarction; I13.0 Hypertensive heart and chronic kidney disease with heart failure and stage 1 through stage 4 chronic kidney disease, or unspecified chronic kidney disease; I50.22 Chronic systolic (congestive) heart failure; I42.0 Dilated cardiomyopathy; R00.1 Bradycardia, unspecified; T46.2X5A Adverse effect of other antidysrhythmic drugs, initial encounter; T44.7X5A Adverse effect of beta-adrenoreceptor antagonists, initial encounter; T46.4X5A Adverse effect of angiotensin-converting-enzyme inhibitors, initial encounter; T50.0X5A Adverse effect of mineralocorticoids and their antagonists, initial encounter; Y92.9 Unspecified place or not applicable; D50.9 Iron deficiency anemia, unspecified; T80.89XA Other complications following infusion, transfusion and therapeutic injection, initial encounter; Y84.8 Other medical procedures as the cause of abnormal reaction of the patient, or of later complication, without mention of misadventure at the time of the procedure; Y92.239 Unspecified place in hospital as the place of occurrence of the external cause; E11.22 Type 2 diabetes mellitus with diabetic chronic kidney disease; N18.30 Chronic kidney disease, stage 3 unspecified; I48.0 Paroxysmal atrial fibrillation; I25.5 Ischemic cardiomyopathy; I25.119 Atherosclerotic heart disease of native coronary artery with unspecified angina pectoris; E78.5 Hyperlipidemia, unspecified; R09.02 Hypoxemia; G47.30 Sleep apnea, unspecified; R06.89 Other abnormalities of breathing; Z79.82 Long term (current) use of aspirin; Z79.02 Long term (current) use of antithrombotics/antiplatelets; Z79.51 Long term (current) use of inhaled steroids; Z79.899 Other long term (current) drug therapy; Z95.5 Presence of coronary angioplasty implant and graft
CPT/HCPCS: 36415; 36600; 71045; 80048; 82274; 82728; 82803; 82962; 83540; 83550; 83880; 84484; 85025; 85610; 86644; 86850; 86900; 86901; 86920; 86922; 93005; 94640; 97116; 97162; 97166; 97530; 97802; 99281; J7030; J7040; J7050; P9016; A4216; J2916

== ENCOUNTER 2020-05-07 22:09 | Emergency (ER) | payer MEDICARE, SELFPAY ==
[2020-05-04 14:30] VITALS: BMI 28.3
[2020-05-07 22:10] VITALS: BP 114/56; PULSE 83; RESP 27; TEMP 36.9; O2SAT 98; BMI 29.0
[2020-05-07 22:14] VITALS: BP 114/56; PULSE 83; RESP 27; TEMP 36.9; O2SAT 98
--- NOTE | 2020-05-07 22:36 | EKG12_ITS ---
Test Reason : SOB Blood Pressure : / mmHG Vent. Rate : 081 BPM Atrial Rate : 081 BPM P-R Int : 172 ms QRS Dur : 118 ms QT Int : 430 ms P-R-T Axes : 030 -27 097 degrees QTc Int : 499 ms Normal sinus rhythm Septal infarct , age undetermined Abnormal ECG Confirmed by EMELYN BAUTISTA, ALENA ([id number]), editorial director DINO MARTINS ([id number]) on 05/10/2020 8:18:22 AM Referred By: CLEMENTINA Confirmed By:ALENA DUNAWAY MD
[2020-05-07 23:14] VITALS: BP 108/55; PULSE 84; RESP 25; TEMP 37.1; O2SAT 98
[2020-05-07] MEDS: Albuterol 2.5 MG/3 ML VIAL.NEB. INHALATION (23:19)
[2020-05-07 23:20] VITALS: PULSE 91; RESP 18
[2020-05-07 23:26] LABS: Bacteria 0 SEEN /hpf (None Seen); Mucous, Urine 0 SEEN /hpf (<or=2+); Red Blood Cells-Urine 0 SEEN /hpf (0-5); Squamous Epithelial Cells - UA 0 SEEN /hpf (0-5); White Blood Cells 0 SEEN /hpf (0-5)
[2020-05-07 23:27] LABS: Color, Urine Yellow (Yellow); Glucose, Dipstick Normal (Normal); Ketone-Dipstick Negative (Negative); Leukocyte Esterase-Dipstick Negative /ul (Negative); Nitrite-Dipstick Negative (Negative); Occult Blood-Urine Negative /ul (Negative); Protein-Dipstick Negative (Negative); Specific Gravity, Urine 1.015 (1.002-1.030); Urine Bilirubin Dipstick Negative (Negative); Urine Clarity Clear (Clear); Urine Urobilinogen Normal (Normal)
[2020-05-07 23:30] LABS: International Normalized Ratio 1.3; Prothrombin Time (Protime)PT. 15.2 SECONDS (11.7-14.9)
--- NOTE | 2020-05-07 23:30 | RAD_ITS ---
HISTORY: DC FROM HOSPITAL TODAY, PER EMS LOW SPO2, RECENT STENT PLACED, SOB. EXAMINATION/TECHNIQUE: XR Chest 1 View: Portable upright COMPARISON: 05/06/2020 FINDINGS: Cardiac telemetry leads in place. Further worsening and mild progression of left lower lobe infiltrate or atelectasis. Small left pleural effusion may also be present. Right basilar mild atelectasis or scarring. Normal heart size. No overt vascular congestion. No pneumothorax. Atherosclerotic thoracic aorta. RAD/Chest 1 View (Portable) IMPRESSION: 1. Further worsening and mild progression of left lower lobe infiltrate or atelectasis and possible small left pleural effusion. 2. Right basilar mild atelectasis or scarring. 3. No CHF identified. at 0059 Reported and signed by: Taiwo Higgins MD Electronically Signed: Taiwo Higgins, at 0:57 EDT Tel , Service support ,
[2020-05-07 23:31] LABS: Partial Thromboplast Time 47.1 Seconds (24.1-36.2)
[2020-05-07 23:36] VITALS: PULSE 77; RESP 25; TEMP 37.1; O2SAT 96
[2020-05-07 23:40] LABS: Absolute Lymphocyte Count 0.28 X10^3/uL (0.83-4.51); Absolute Neutrophil Count 7.5 X10^3/uL (2.0-7.7); Basophil# 0.02 X10^3/uL; Basophil% 0.2 % (0-1); Eosinophil# 0.14 X10^3/uL; Eosinophils% 1.6 % (0-5); Hematocrit 30.1 % (40-54); Hemoglobin 9.2 g/dL (13.0-16.5); Lymphocyte # 0.28 X10^3/ul (4.0); Lymphocyte % 3.2 % (19-41); Mean Corp Hgb Conc 30.6 g/dL (32-36); Mean Corpuscular Hgb 28.8 pg (27.0-32.0); Mean Corpuscular Volume 94.1 fL (80-94); Mean Platelet Vol. 10.4 fl (6.2-12.0); Monocyte# 0.76 X10^3/uL; Monocyte% 8.6 % (0-10); NRBC Flagged by Analyzer 0 % (0-5); POSITIVE DIFFERENTIAL YES; Platelet Count 224 K/mm3 (150-450); RBC Distribution Width CV 14.8 % (11.6-14.6); RBC Distribution Width SD 51.3 fl (35.1-43.9); White Blood Count 8.8 K/mm3 (4.4-11.0)
--- NOTE | 2020-05-07 23:42 | ED.VIS.DYS ---
History of Present Illness Chief Complaint: Shortness of Breath Informant: Patient, Relative, EMS Onset: Today - last 3-4 hrs Activity at onset: Rest - gradual in onset Timing: Continuous Quality: - - short of breath Current Severity: Mild Maximum Severity: Moderate Worsened by: Nothing Relieved by: Oxygen - turning it up, - - after coughing up some sputum Associated Symptoms: Clear sputum, Cough. Negative for: Fever, Sore throat, Sweats Chest Pain: None Narrative: Patient was just discharged from the hospital about 5 hours prior to arrival for hypotension that was presumed due to medications he was put on after having a stent placed in his left main coronary artery, and receiving a life vest from [facility] in [place] for acute ischemic cardiomyopathy with an ejection fraction of 15%. He had been doing very well in the hospital, his lethargy had resolved and he was much more alert, he was here for a day or 2 and discharged earlier today. He had some chest x-rays that were abnormal, but they were presumed not to represent pneumonia. He states he has had a cough, he coughed up some sputum once today, after which he felt a little better, and once while he was in the hospital at [facility] but for the most part it has been nonproductive. They sent him home on a 2 L nasal cannula, today on that level of oxygen he was at approximately 83% pulse ox. After discussing with the on-call doctor, the turned it up to 5 L and called EMS. Now he is on 2 L and satting at 96%, he feels a little better but still feels mildly dyspneic. He denies any chest pain. He has not been lethargic or passed out today. He has not developed any other new symptoms. With regards to COVID-19, he was not recently tested for it, and they do not know if he was tested at [facility] or not although they think he was in was negative but are not sure. - Past Medical History (1) Atherosclerotic heart disease [place] coronary artery w/angina pectoris Status: Chronic (2) Chronic kidney disease (CKD) Status: Chronic (3) Essential (primary) hypertension Status: Chronic (4) Hyperlipidemia Status: Chronic (5) Ischemic cardiomyopathy Status: Chronic (6) Paroxysmal atrial fibrillation Status: Chronic (7) Pericardial effusion without cardiac tamponade Status: Chronic Past Medical History - Allergies and Home Meds Allergies/Adverse Reactions: Allergies No Known Allergies Allergy (Verified 05/07/20 22:15) Primary Care Physician: Vladimir Healy MD [Primary Care Provider] - 3-5 Days Surgical History: cataract, - - Coronary stent Lives: With Family Smoking Status: Never smoker - Family History Maternal Family History: Family History (Last Reviewed 05/04/20 @ 14:[address] Madison Zapata MD) Father CAD (coronary artery disease) Cancer Sister Cancer Family History: Reports: - - Denies known maternal medical history including cardiac history. Review of Systems General: Denies: Chills, Fever, Sweats Eyes: Denies: Visual changes - bilaterally, Diplopia ENT: Denies: Rhinorrhea, Sore throat Cardiovascular: Denies: Chest pain, Palpitations Respiratory: Reports: Dyspnea, Cough, Sputum Gastrointestinal: Denies: Abdominal pain, Nausea, Vomiting, Diarrhea, Melena, Hematochezia Genitourinary: Denies: Dysuria, Hematuria, Frequency Musculoskeletal: Denies: Back pain, Swelling, Extremity Pain Skin: Denies: Rash, Wounds Neurological: Denies: Headache, Weakness, Numbness Physical Exam Vital Signs/Narrative: Vital Signs Temp Pulse Resp BP Pulse Ox 05/07/20 23:36 98.7 F 77 25 H 96 05/07/20 23:20 91 18 05/07/20 23:14 98.7 F 84 25 H 108/55 L 98 05/07/20 22:14 98.5 F 83 27 H 114/56 L 98 05/07/20 22:10 98.5 F 83 27 H 114/56 L 98 Inital Vital Signs reviewed: Yes General: Well nourished, Well developed, No Acute Distress Head: Normocephalic, Atraumatic Eyes: Perrl, EOMI ENT: Moist mucous membranes, No rhinorrhea Neck: Supple, Nontender, No lymphadenopathy, No JVD Cardiovascular: Regular rate, Regular rhythm, No murmurs Respiratory: No distress, Chest nontender, Rhonchi - Few high-pitched both bases., Wheezing - Slight right upper posterior, clears after coughing. Negative for: Rales Abdomen: Soft, Nontender, Nondistended, Normal bowel sounds Back: Nontender, Normal Inspection. Negative for: CVA tenderness Extremities: Nontender, No edema. Negative for: Calf Tenderness Skin: Normal color, No rash, No Trauma Neurological: Alert, Oriented x3, Cranial nerves II-XII grossly intact, Normal Strength, Normal Sensation Psychological: Normal affect, Normal Mood Diagnostic/Tx/Re-eval Impressions Chest X-Ray 05/07/20 23:30 IMPRESSION: 1. Further worsening and mild progression of left lower lobe infiltrate or atelectasis and possible small left pleural effusion. 2. Right basilar mild atelectasis or scarring. 3. No CHF identified. at 0059 Reported and signed by: Taiwo Higgins MD Electronically Signed: Taiwo Higgins, at 0:57 EDT Tel , Service support , 05/07/20 23:30 Chest 1 View (Portable) [RAD] Stat Laboratory Results 05/07/20 05/07/20 05/07/20 22:28 22:28 22:28 WBC 8.8 RBC 3.20 L Hgb 9.2 L Hct 30.1 L MCV 94.1 H MCH 28.8 MCHC 30.6 L RDW Std Deviation 51.3 H RDW Coeff of Kranthi 14.8 H Plt Count 224 MPV 10.4 Immature Gran % (Auto) 1.400 H Neut % (Auto) 85.0 H Lymph % (Auto) 3.2 L [place] % (Auto) 8.6 Eos % (Auto) 1.6 Baso % (Auto) 0.2 Absolute Neuts (auto) 7.5 Absolute Lymphs (auto) 0.28 L Nucleated RBC % 0 Differential Comment SCANNED PT 15.2 H INR 1.3 APTT 47.1 H Sodium 140 Potassium 3.8 Chloride 110 H Carbon Dioxide 25.0 Anion Gap 5 BUN 24 H Creatinine 1.88 H Estim Creat Clear Calc 29.81 Est GFR (MDRD) Af Amer 44 L Est GFR (MDRD) Non-Af 37 L BUN/Creatinine Ratio 12.8 Glucose 172 H Lactic Acid Calcium 8.4 L Total Bilirubin 0.60 AST 17 ALT 21 Alkaline Phosphatase 62 Troponin I 0.038 Total Protein 6.4 Albumin 2.5 L Globulin 3.9 Albumin/Globulin Ratio 0.6 L Urine Color Urine Clarity Urine pH Ur Specific [place] Urine Protein Urine Glucose (UA) Urine Ketones Urine Occult Blood Urine Nitrite Urine Bilirubin Urine Urobilinogen Ur Leukocyte Esterase Urine RBC Urine WBC Ur Squamous Epith Cells Urine Bacteria Urine Mucus 05/07/20 05/07/20 23:11 23:15 WBC RBC Hgb Hct MCV MCH MCHC RDW Std Deviation RDW Coeff of Kranthi Plt Count MPV Immature Gran % (Auto) Neut % (Auto) Lymph % (Auto) [place] % (Auto) Eos % (Auto) Baso % (Auto) Absolute Neuts (auto) Absolute Lymphs (auto) Nucleated RBC % Differential Comment PT INR APTT Sodium Potassium Chloride Carbon Dioxide Anion Gap BUN Creatinine Estim Creat Clear Calc Est GFR (MDRD) Af Amer Est GFR (MDRD) Non-Af BUN/Creatinine Ratio Glucose Lactic Acid 1.7 Calcium Total Bilirubin AST ALT Alkaline Phosphatase Troponin I Total Protein Albumin Globulin Albumin/Globulin Ratio Urine Color Yellow Urine Clarity Clear Urine pH 5.0 Ur Specific [place] 1.015 Urine Protein Negative Urine Glucose (UA) Normal Urine Ketones Negative Urine Occult Blood Negative Urine Nitrite Negative Urine Bilirubin Negative Urine Urobilinogen Normal Ur Leukocyte Esterase Negative Urine RBC 0 SEEN Urine WBC 0 SEEN Ur Squamous Epith Cells 0 SEEN Urine Bacteria 0 SEEN Urine Mucus 0 SEEN - Rhythm Strip Rhythm Strip: Sinus Rhythm Rate: 81 Ectopy: None - EKG Initial EKG Interpretation: Sinus Rhythm, No Acute Injury Pattern, - - Leftward axis. Old septal infarct. Prior: Unchanged Treatment - Dyspnea: Albuterol, Antibiotics Repeat Evaluation: Improved - Medical Decision Making After albuterol the patient is breathing better, he remained in the mid 90s saturations on 2 L nasal cannula. There was significant delay in getting radiology results, but it does show further worsening with mild progression of the left lower lobe infiltrate versus atelectasis. He now has 3 sequential x-ray showing worsening, and given the clinical features he presented with I suspect this is indicative of pneumonia. It is possible this is hospital-acquired, so since he is at risk for MRSA, he is treated with Rocephin and vancomycin. He does not have specific Pseudomonas risk, nor does he have the appearance of a lung abscess/empyema. He was monitored in the emergency department for a total of over 5 hours, mostly because of waiting for Covid test to return. It was negative. He felt well throughout this entire observation period and not require any more breathing treatments, remaining in the 90% range on 2 L nasal cannula the entire time. We ambulated him, he felt a little dyspneic but really did not feel badly, and he did not desaturate below 89%, at which he was only for less than 1 minute. I offered admission but he declined and prefers to go home if it is safe, I think that it is. Will prescribe him oral antibiotics. He has a home health nurse that is scheduled to visit for the first time tomorrow, and there is a pulse oximeter at home that family can use to check on him. I suspect that he was mucus plugging earlier, we discussed what they could do in case this happens again. We also discussed reasons to return to the ER. ED Disposition - Plan for ED Patient: Disposition: Home or Assisted Living Diagnosis: Pneumonia, Chronic kidney disease (CKD), Ischemic cardiomyopathy Instructions: ED PNEUMONITIS Adult Prescriptions: Doxycycline 100 mg PO BID #20 cap Prescription Printed Referrals: Vladimir Healy MD [Primary Care Provider] - 3-5 Days
[2020-05-07 23:43] LABS: ALB/GLOB Ratio 0.6 RATIO (0.9-2.4); AST(SGOT) 17 U/L (15-37); Alanine Aminotransfer ALT/SGPT 21 U/L (16-61); Albumin, Serum 2.5 g/dL (3.2-5.0); Alkaline Phosphatase 62 U/L (45-117); Anion Gap 5 (5-15); BUN 24 mg/dL (7-18); BUN/Creat Ratio 12.8 RATIO (10-20); Calcium,Total 8.4 mg/dL (8.5-10.1); Chloride 110 mmol/L (98-107); Creatinine, Serum 1.88 mg/dL (0.70-1.30); EST Glomerular Filtration Rate 37 mL/min (>60); Est Glom Filt Rate - Afr Amer 44 mL/min (>60); Estimated Creatinine Clearance 29.81 ml/min; Globulin 3.9 g/dL (2.2-4.2); Glucose 172 mg/dL (74-106); Potassium 3.8 mmol/L (3.5-5.1); Protein, Total 6.4 g/dL (6.4-8.2); Sodium Level 140 mmol/L (136-145)
[2020-05-07 23:44] LABS: Differential Indicated SCAN CRITERIA MET
[2020-05-07 23:44] LABS: Lactic Acid 1.7 mmol/L (0.4-1.9)
[2020-05-08] VITALS: BP 108/55; PULSE 82; RESP 18; TEMP 37.2; O2SAT 95
[2020-05-08 00:02] LABS: Differential Comment SCANNED
[2020-05-08 01:00] VITALS: BP 104/53; PULSE 84; RESP 22; TEMP 37.4; O2SAT 95
[2020-05-08] MEDS: Ceftriaxone 1 GM/50 ML BAG IV (01:30)
[2020-05-08 01:33] VITALS: BP 106/53; PULSE 77; RESP 15; O2SAT 92
[2020-05-08 02:20] VITALS: BP 113/59; PULSE 81; RESP 22; TEMP 37.2; O2SAT 97
[2020-05-08 03:34] VITALS: BP 120/69; PULSE 88; RESP 20; O2SAT 96
[2020-05-08] MEDS: Doxycycline 100 MG CAPSULE PO (04:01)
[2020-05-08 04:22] VITALS: RESP 20
== END 2020-05-08 04:32 | disposition home or self-care (01) ==
PROVIDERS: Emergency Provider Emergency Medicine; PCP Family Medicine
DX: J18.9 Pneumonia, unspecified organism (principal); I25.5 Ischemic cardiomyopathy; I12.9 Hypertensive chronic kidney disease with stage 1 through stage 4 chronic kidney disease, or unspecified chronic kidney disease; N18.9 Chronic kidney disease, unspecified; I25.10 Atherosclerotic heart disease of native coronary artery without angina pectoris; I31.3 Pericardial effusion (noninflammatory); I48.0 Paroxysmal atrial fibrillation; E78.5 Hyperlipidemia, unspecified; Z79.82 Long term (current) use of aspirin; Z79.899 Other long term (current) drug therapy; Z95.5 Presence of coronary angioplasty implant and graft
CPT/HCPCS: 71045; 80053; 81001; 83605; 84484; 85025; 85610; 85730; 87040; 87086; 87088; 87635; 93005; 94640; 96365; 96366; 96367; 99285; J7050; A4216; U0003

== ENCOUNTER → 2020-05-19 12:11 | Outpatient (CLI) | payer MEDICARE, SELFPAY ==
[2020-05-19 11:20] VITALS: BMI 25.4
[2020-05-19 13:19] LABS: ALB/GLOB Ratio 0.6 RATIO (0.9-2.4); AST(SGOT) 12 U/L (15-37); Alanine Aminotransfer ALT/SGPT 20 U/L (16-61); Albumin, Serum 2.9 g/dL (3.2-5.0); Alkaline Phosphatase 91 U/L (45-117); Anion Gap 10 (5-15); BUN 56 mg/dL (7-18); BUN/Creat Ratio 18.6 RATIO (10-20); Calcium,Total 9.2 mg/dL (8.5-10.1); Chloride 101 mmol/L (98-107); Creatinine, Serum 3.01 mg/dL (0.70-1.30); EST Glomerular Filtration Rate 21 mL/min (>60); Est Glom Filt Rate - Afr Amer 26 mL/min (>60); Globulin 4.5 g/dL (2.2-4.2); Glucose 141 mg/dL (74-106); Potassium 3.9 mmol/L (3.5-5.1); Protein, Total 7.4 g/dL (6.4-8.2); Sodium Level 140 mmol/L (136-145)
== END ==
PROVIDERS: PCP Family Medicine; Referring Provider Physician Assistant Medical; Visit Provider Physician Assistant Medical
DX: I25.5 Ischemic cardiomyopathy (principal)
CPT/HCPCS: 36415; 80053

== ENCOUNTER → 2020-06-01 11:07 | Outpatient (CLI) | payer MEDICARE, SELFPAY ==
[2020-05-19 11:20] VITALS: BMI 25.4
[2020-06-01 13:03] LABS: Anion Gap 7 (5-15); BUN 22 mg/dL (7-18); BUN/Creat Ratio 13.8 RATIO (10-20); Calcium,Total 8.3 mg/dL (8.5-10.1); Chloride 101 mmol/L (98-107); Creatinine, Serum 1.59 mg/dL (0.70-1.30); EST Glomerular Filtration Rate 45 mL/min (>60); Est Glom Filt Rate - Afr Amer 54 mL/min (>60); Glucose 166 mg/dL (74-106); Potassium 3.3 mmol/L (3.5-5.1); Sodium Level 138 mmol/L (136-145)
== END ==
PROVIDERS: Physician Assistant Medical; PCP Family Medicine; Referring Provider Internal Medicine Cardiovascular Disease; Visit Provider Internal Medicine Cardiovascular Disease
DX: N18.9 Chronic kidney disease, unspecified (principal)
CPT/HCPCS: 36415; 80048

== ENCOUNTER → 2020-06-06 12:49 | Outpatient (CLI) | payer MEDICARE, SELFPAY ==
[2020-06-03 15:21] VITALS: BMI 25.9
--- NOTE | 2020-06-06 12:51 | ECHOD_ITS ---
Reason For Study: CAD/ASHD Procedure This was a 2D Doppler, Color Flow transthoracic echocardiogram. Exam performed in department. Left Ventricle Normal left ventricle. Mid cavitary false tendon noted. The estimated ejection fraction is 28 %. Severe segmental systolic dysfunction (see wall motion). [place] : Akinetic. Mid-anteroseptal : Akinetic. Mid-Anterior : Severely Hypokinetic. Lateral [place] : Hypokinetic. Right Ventricle Normal RV size. Normal systolic function. Atria Normal left atrium. Normal right atrium. Mitral Valve Normal mitral valve. Mild (1+) eccentric mitral valve insufficiency. Tricuspid Valve Normal tricuspid valve. Mild tricuspid valve insufficiency. Aortic Valve Trisinus/trileaflet aortic valve. Mild (1+) aortic valve insufficiency. Pulmonic Valve Normal pulmonic valve. Great Vessels Normal aortic root. The pulmonary artery is normal size. Normal inferior vena cava. Pericardium/Pleural No pericardial effusion. MMode/2D Measurements & Calculations LVIDd: 5.5 cm IVSd: 1.1 cm Ao root diam: 3.4 cm LVIDs: 4.2 cm LVPWd: 1.1 cm RVDd: 3.2 cm FS: 23.3 % LAV(MOD-bp): 60.1 ml LVAd ap4: 41.3 cm2 SV(MOD-sp4): 66.6 ml LAV(MOD-bp) Indexed: 31.4 ml/m2 EDV(MOD-sp4): 150.4 ml LAV(MOD-sp2): 65.8 ml EDV(sp4-el): 156.4 ml LAV(MOD-sp4): 49.5 ml LVAs ap4: 30.0 cm2 ESV(MOD-sp4): 83.9 ml ESV(sp4-el): 87.3 ml EF(MOD-sp4): 44.2 % EF(sp4-el): 44.2 % SV(sp4-el): 69.1 ml LA A4 area: 17.7 cm2 LA dimension(2D): 4.0 cm RA A4 area: 12.6 cm2 Time Measurements MV dec time: 0.19 sec Doppler Measurements & Calculations MV E max noah: 58.1 cm/sec Lat Peak E' Noah: 4.2 cm/sec Med Peak E' Noah: 5.3 cm/sec MV A max noah: 81.9 cm/sec E/E' lat: 13.9 E/E' med: 11.0 MV E/A: 0.71 Ao V2 max: 199.4 cm/sec LV V1 max: 104.4 cm/sec PA V2 max: 91.1 cm/sec Ao max P.9 mmHg LV V1 max P.4 mmHg Ao V2 mean: 138.7 cm/sec LV V1 mean P.5 mmHg Ao mean P.5 mmHg LV V1 mean: 75.2 cm/sec Ao V2 VTI: 40.4 cm LV V1 VTI: 22.0 cm TR max noah: 259.3 cm/sec TR max P.9 mmHg Interpretation Summary Normal left ventricle. The estimated ejection fraction is 28 %. Severe segmental systolic dysfunction (see wall motion). Mild (1+) eccentric mitral valve insufficiency. Compared to previous study, the left ventricular systolic function has improved.. Ordering Physician: Mikhail Siu Referring Physician: Vladimir Healy Performed By: Unique Shelton, KEO, RVT
== END ==
PROVIDERS: PCP Family Medicine; Referring Provider Internal Medicine Cardiovascular Disease; Visit Provider Internal Medicine Cardiovascular Disease
DX: I95.9 Hypotension, unspecified (principal)
CPT/HCPCS: 93306

== ENCOUNTER → 2020-07-28 15:21 | Outpatient (CLI) | payer MEDICARE, SELFPAY ==
[2020-07-28 12:24] VITALS: BMI 26.4
[2020-07-28 17:02] LABS: Absolute Lymphocyte Count 0.27 X10^3/uL (0.83-4.51); Absolute Neutrophil Count 3.3 X10^3/uL (2.0-7.7); Basophil# 0.02 X10^3/uL; Basophil% 0.5 % (0-1); Eosinophil# 0.23 X10^3/uL; Eosinophils% 5.2 % (0-5); Hematocrit 35.8 % (40-54); Hemoglobin 11.6 g/dL (13.0-16.5); Lymphocyte # 0.27 X10^3/ul (4.0); Lymphocyte % 6.2 % (19-41); Mean Corp Hgb Conc 32.4 g/dL (32-36); Mean Corpuscular Hgb 29.7 pg (27.0-32.0); Mean Corpuscular Volume 91.8 fL (80-94); Mean Platelet Vol. 10.6 fl (6.2-12.0); Monocyte# 0.51 X10^3/uL; Monocyte% 11.6 % (0-10); NRBC Flagged by Analyzer 0 % (0-5); Neutrophil # 3.34 X10^3/uL (2.7-7.7); POSITIVE DIFFERENTIAL YES; Platelet Count 131 K/mm3 (150-450); RBC Distribution Width CV 18.8 % (11.6-14.6); RBC Distribution Width SD 61.5 fl (35.1-43.9); White Blood Count 4.4 K/mm3 (4.4-11.0)
[2020-07-28 17:09] LABS: Differential Indicated SCAN CRITERIA MET
[2020-07-28 17:42] LABS: AST(SGOT) 12 U/L (15-37); Alanine Aminotransfer ALT/SGPT 25 U/L (16-61); Albumin, Serum 3.5 g/dL (3.2-5.0); Alkaline Phosphatase 78 U/L (45-117); Anion Gap 6 (5-15); BUN 30 mg/dL (7-18); Bilirubin, Direct 0.16 mg/dL (0.00-0.30); Calcium,Total 8.9 mg/dL (8.5-10.1); Chloride 101 mmol/L (98-107); Cholesterol 171 mg/dL (200); Creatinine, Serum 1.88 mg/dL (0.70-1.30); EST Glomerular Filtration Rate 37 mL/min (>60); Est Glom Filt Rate - Afr Amer 44 mL/min (>60); Globulin 3.4 g/dL (2.2-4.2); Glucose 395 mg/dL (74-106); High Density Lipoprotein 39 mg/dL; Magnesium 1.9 mg/dL (1.6-2.6); Potassium 4.2 mmol/L (3.5-5.1); Protein, Total 6.9 g/dL (6.4-8.2); Sodium Level 136 mmol/L (136-145); Triglycerides 229 mg/dL; Very Low Density Lipoprotein 46 mg/dL (5-40)
[2020-07-28 17:47] LABS: Anisocytosis RARE; Macrocytosis RARE; Platelet Estimate SLT DEC (ADEQ); Red Cell Morphology N CHROM NORMAL (NORM C&C)
== END ==
PROVIDERS: PCP Family Medicine; Referring Provider Internal Medicine Cardiovascular Disease; Visit Provider Internal Medicine Cardiovascular Disease
DX: N18.9 Chronic kidney disease, unspecified (principal); I25.5 Ischemic cardiomyopathy; E78.5 Hyperlipidemia, unspecified
CPT/HCPCS: 36415; 80048; 80061; 80076; 83735; 85025

== ENCOUNTER → 2020-08-25 14:37 | Outpatient (CLI) | payer MEDICARE, SELFPAY ==
[2020-07-28 12:24] VITALS: BMI 26.4
[2020-08-25 17:44] LABS: Absolute Lymphocyte Count 0.29 X10^3/uL (0.83-4.51); Absolute Neutrophil Count 5.2 X10^3/uL (2.0-7.7); Basophil# 0.03 X10^3/uL; Basophil% 0.5 % (0-1); Eosinophil# 0.18 X10^3/uL; Eosinophils% 2.9 % (0-5); Hematocrit 44.4 % (40-54); Hemoglobin 14.2 g/dL (13.0-16.5); Lymphocyte # 0.29 X10^3/ul (4.0); Lymphocyte % 4.7 % (19-41); Mean Corpuscular Hgb 29.2 pg (27.0-32.0); Mean Corpuscular Volume 91.2 fL (80-94); Monocyte# 0.52 X10^3/uL; Monocyte% 8.4 % (0-10); NRBC Flagged by Analyzer 0 % (0-5); Neutrophil # 5.15 X10^3/uL (2.7-7.7); Neutrophil % 83.2 % (47-70); POSITIVE DIFFERENTIAL YES; Platelet Count 126 K/mm3 (150-450); RBC Distribution Width CV 16.5 % (11.6-14.6); RBC Distribution Width SD 55.5 fl (35.1-43.9); Red Blood Count 4.87 M/mm3 (4.6-6.2); White Blood Count 6.2 K/mm3 (4.4-11.0)
[2020-08-25 17:47] LABS: Differential Indicated SCAN CRITERIA MET
[2020-08-25 18:01] LABS: Differential Comment SCANNED
[2020-08-25 18:09] LABS: Hemoglobin A1c 12.1 % (3.8-5.6)
[2020-08-25 18:28] LABS: ALB/GLOB Ratio 1.1 RATIO (0.9-2.4); AST(SGOT) 10 U/L (15-37); Alanine Aminotransfer ALT/SGPT 28 U/L (16-61); Alkaline Phosphatase 89 U/L (45-117); Anion Gap 9 (5-15); BUN 33 mg/dL (7-18); BUN/Creat Ratio 13.3 RATIO (10-20); Chloride 93 mmol/L (98-107); Creatinine, Serum 2.49 mg/dL (0.70-1.30); EST Glomerular Filtration Rate 27 mL/min (>60); Est Glom Filt Rate - Afr Amer 32 mL/min (>60); Globulin 3.5 g/dL (2.2-4.2); Glucose 804 mg/dL (74-106); Protein, Total 7.5 g/dL (6.4-8.2); Sodium Level 129 mmol/L (136-145); Thyroid Stim Hormone (TSH) 4.85 uIU/mL (0.358-3.74)
== END ==
PROVIDERS: PCP Family Medicine; Referring Provider Family Medicine; Visit Provider Family Medicine
DX: R63.4 Abnormal weight loss (principal)
CPT/HCPCS: 36415; 80053; 83036; 84443; 85025

== ENCOUNTER 2020-08-25 18:53 | Inpatient (IN) | payer MEDICARE, SELFPAY ==
[2020-07-28 12:24] VITALS: BMI 26.4
[2020-08-25 18:54] VITALS: BP 99/52; PULSE 78; RESP 19; TEMP 35.9; O2SAT 94; BMI 24.9
[2020-08-25 19:16] LABS: Bedside Glucose > 500 mg/dL (70-110)
[2020-08-25] MEDS: 0.9% Normal Saline 1,000 ML 999 ML IV (19:23)
[2020-08-25 19:24] VITALS: BP 107/56; PULSE 72; RESP 18; O2SAT 88
--- NOTE | 2020-08-25 19:26 | ED.RN ---
02 sats 88% on ra. Pt placed on at 2lnc. Family said pt wears o2 at hs
[2020-08-25 19:34] LABS: Absolute Lymphocyte Count 0.36 X10^3/uL (0.83-4.51); Absolute Neutrophil Count 5.6 X10^3/uL (2.0-7.7); Basophil# 0.02 X10^3/uL; Basophil% 0.3 % (0-1); Eosinophil# 0.14 X10^3/uL; Eosinophils% 2.1 % (0-5); Hematocrit 44.3 % (40-54); Hemoglobin 14.4 g/dL (13.0-16.5); Lymphocyte # 0.36 X10^3/ul (4.0); Lymphocyte % 5.4 % (19-41); Mean Corp Hgb Conc 32.5 g/dL (32-36); Mean Corpuscular Hgb 29.6 pg (27.0-32.0); Mean Platelet Vol. 10.9 fl (6.2-12.0); Monocyte# 0.51 X10^3/uL; Monocyte% 7.6 % (0-10); NRBC Flagged by Analyzer 0 % (0-5); Neutrophil # 5.62 X10^3/uL (2.7-7.7); Neutrophil % 84.2 % (47-70); POSITIVE DIFFERENTIAL YES; Platelet Count 122 K/mm3 (150-450); RBC Distribution Width CV 16.1 % (11.6-14.6); RBC Distribution Width SD 53.9 fl (35.1-43.9); Red Blood Count 4.87 M/mm3 (4.6-6.2); White Blood Count 6.7 K/mm3 (4.4-11.0)
--- NOTE | 2020-08-25 19:44 | ED.VISSUMM ---
- ER Visit Summary Date of Service: 08/25/20 Chief Complaint: Hyperglycemia History of Present Illness: The patient is a 79 M who presents with hyperglycemia. He saw his PCP today after having a couple of days of weakness. He had decreased appetite for 2 weeks. He is a type II diabetic on Metformin. They added glipizide when he was at the PCP office today. He has the polyuria and polydipsia. He has lost 10 pounds over the past month. He denies having any fevers, nausea or vomiting. Laboratory studies were drawn at the PCPs office and they called him this evening and noted that his blood sugar was 804 Physical Examination: Vital signs reviewed. HEENT exam unremarkable. Heart is regular rate and rhythm without murmurs. Lungs are clear to auscultation. Abdomen is soft and nontender. Extremities reveal no edema. Skin exam normal. Neurologic exam normal. Test Results: CBC normal. Chemistry showed a sodium of 130, chloride 94, glucose 804, creatinine 2.63, negative serum ketones, urinalysis normal Emergency Department Course and Treatment: She was given IV fluids. He was given 12 5 units of regular insulin. Repeat BG T is 589. Patient will be admitted to the hospital for further evaluation. He is also given IV fluids. Treatment Plan: [] Disposition: Admit Impression: Hyperglycemia, LAUREN This note was generated with [employer] dictation software. It may contain incorrect words, spelling, and punctuation that were not noted in review of the chart prior to signing ED Disposition - Plan for ED Patient: Referrals: Vladimir Healy MD [Primary Care Provider] -
[2020-08-25 19:49] LABS: Differential Indicated SCAN CRITERIA MET
[2020-08-25 20:11] LABS: ALB/GLOB Ratio 1.2 RATIO (0.9-2.4); AST(SGOT) 9 U/L (15-37); Alanine Aminotransfer ALT/SGPT 27 U/L (16-61); Albumin, Serum 4.2 g/dL (3.2-5.0); Alkaline Phosphatase 88 U/L (45-117); Anion Gap 8 (5-15); BUN 33 mg/dL (7-18); BUN/Creat Ratio 12.5 RATIO (10-20); Calcium,Total 9.1 mg/dL (8.5-10.1); Chloride 94 mmol/L (98-107); Creatinine, Serum 2.63 mg/dL (0.70-1.30); EST Glomerular Filtration Rate 25 mL/min (>60); Est Glom Filt Rate - Afr Amer 30 mL/min (>60); Estimated Creatinine Clearance 21.31 ml/min; Globulin 3.5 g/dL (2.2-4.2); Glucose 804 mg/dL (74-106); Potassium 3.9 mmol/L (3.5-5.1); Protein, Total 7.7 g/dL (6.4-8.2); Sodium Level 130 mmol/L (136-145)
[2020-08-25 20:14] LABS: Bacteria 0 SEEN /hpf (None Seen); Mucous, Urine 0 SEEN /hpf (<or=2+); Red Blood Cells-Urine 0 SEEN /hpf (0-5); Squamous Epithelial Cells - UA 0 SEEN /hpf (0-5); White Blood Cells 0 SEEN /hpf (0-5)
[2020-08-25 20:14] LABS: Differential Comment SCANNED
[2020-08-25 20:18] LABS: Color, Urine Straw (Yellow); Glucose, Dipstick 1000 mg/dl (Normal); Ketone-Dipstick Negative (Negative); Leukocyte Esterase-Dipstick Negative /ul (Negative); Nitrite-Dipstick Negative (Negative); Occult Blood-Urine Negative /ul (Negative); Protein-Dipstick Negative (Negative); Urine Bilirubin Dipstick Negative (Negative); Urine Clarity Clear (Clear); Urine Urobilinogen Normal (Normal)
[2020-08-25 21:15] VITALS: BP 116/74; PULSE 63; RESP 13; O2SAT 94
[2020-08-25] MEDS: Insulin Human 75/25 Kwickpen 25 UNIT SC (21:16)
--- NOTE | 2020-08-25 21:18 | HP.PCM_ITS ---
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 fib; obstructive sleep apnea on home CPAP who presents emergency department with outpatient lab of hyperglycemia. Patient of had malaise for 2 to 3 days so he went to his PCPs office. While at the PCPs office he had severe glycosuria as so glipizide was prescribed in addition to his Metformin. Blood work was obtained and patient was sent home. While at home I do not stable he received a call that his blood glucose is over 800 so he should come to the emergency department. Associated with his symptoms is polyuria; polydipsia and weight loss. Further he has anorexia which reportedly is improving. At the emergency department his blood glucose was found to be 804. His creatinine was elevated at 2.63. Patient was given subcutaneous insulin and IV fluids. Past Medical History Past Medical History (Chronic Problems): Chronic Problems (Last Reviewed 08/25/20 @ 21:[address] 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 (Chronic) I25.119 Ischemic cardiomyopathy (Chronic) I25.5 Premature ventricular contractions (Chronic) I49.3 Essential (primary) hypertension (Chronic) I10 Hyperlipidemia (Chronic) E78.5 Type 2 diabetes mellitus without complication E11.9 Pericardial effusion without cardiac tamponade Onset Date: 04/19/20 I31.3 life vest (Resolved) Allergies No Known Allergies Allergy (Verified 08/25/20 18:54) Home Medications: Ambulatory Orders Medication Instructions Recorded tamsulosin 0.4 mg capsule 0.4 mg PO DAILY 09/17/19 aspirin 81 mg tablet,delayed 81 mg PO DAILY@0800 09/30/19 release atorvastatin 80 mg tablet 80 mg PO QHS 04/28/20 pantoprazole 40 mg tablet,delayed 40 mg PO DAILY 04/28/20 release Nitroglycerin (INPATIENT USE) 0.4 mg SUBLINGUAL Q5M PRN 05/04/20 [Nitrostat] polysaccharide iron complex 150 mg 150 mg PO DAILYCM #90 cap 06/06/20 iron capsule potassium chloride 10 mEq 10 meq PO DAILY tab 07/28/20 tablet,extended release(part/cryst) ticagrelor 90 mg tablet 90 mg PO BID #180 tab 07/28/20 carvedilol 12.5 mg tablet 12.5 mg PO BID #180 tab 07/29/20 metformin 500 mg tablet 500 mg PO DAILY tab 07/29/20 amiodarone 200 mg tablet 200 mg PO DAILY #90 tab 08/11/20 furosemide 20 mg tablet 20 mg PO DAILY #90 tab 08/11/20 Iron Polysaccharide Complex 150 mg PO DAILY 08/25/20 [Ferrex 150] glipiZIDE [Glucotrol] 5 mg PO DAILY@0730 08/25/20 Surgical History: Surgical History (Last Reviewed 08/25/20 @ 22:[address] Aleksey Fulton MD) History of coronary artery stent placement (Chronic) Onset Date: 04/19/20 Z95.5 PCI-DANAY-Mid LMT w/ 4.0 x 8 mm Xience Keturah Stent 04/19/2020 H/O shoulder surgery Z98.890 History of hernia surgery Z98.890, Z87.19 History of left heart catheterization Onset Date: 04/19/20 Z98.890 History of tonsillectomy Z90.89 Hx of cataract surgery Z98.49 Surgical History: cataract, - - Coronary stent Psychiatric History: No pertinent psych hx Smoking Status: Never smoker Tobacco Use: Non-smoker - *Family History Maternal Family History: Family History (Last Reviewed 08/25/20 @ 21:[address] Aleksey Fulton MD) Father CAD (coronary artery disease) Cancer Sister Cancer History Items: - - Denies known maternal medical history including cardiac history. Review of Systems Constitutional: Reports: Anorexia, Weight Change. Denies: Chills, Fever HEENT: Denies: Head Aches, Sinus Congestion, Sinus Drainage Cardiovascular: Denies: Chest Pain, Palpitations Respiratory: Denies: Cough, Shortness of breath at rest, Sputum production Gastrointestinal: Denies: Abdominal Pain, Nausea, Vomiting Genitourinary: Reports: Frequency. Denies: Dysuria Musculoskeletal: Denies: Joint Pain, Joint Tenderness Skin: Denies: Rash, Wounds Neurological: Denies: Numbness, Tingling, Focal weakness Psychiatric: Denies: Anxiety, Depression, Homicidal Ideations, Suicidal Ideations Hematologic/ Lymphatic: Denies: Easy Bruising, Easy Bleeding VTE Information - Inpt Only VTE Present on Admission: No VTE Mechan Device Prophylaxis: None VTE Pharm Prophylaxis ordered?: Yes Patient Problems: Active and Suspected Problems (Last Reviewed 08/25/20 @ 21:[address] Aleksey Fulton MD) Hyperglycemia (Acute) - Physical Exam Vitals/I&O's: Vital Signs Temp Pulse Resp BP Pulse Ox 96.6 F L 63 13 116/74 94 08/25/20 18:54 08/25/20 21:15 08/25/20 21:15 08/25/20 21:15 08/25/20 21:15 Oxygen Delivery Method Room Air Weight: 74.4 kg Body Mass Index (BMI) 24.9 Finger Stick Blood Glucose 500 Intake and Output for Last 24 Hours 08/23/20 08/24/20 08/25/20 23:59 23:59 23:59 Intake Total 1000 / 1000 Balance 1000 / 1000 General: Alert, Oriented x3, Cooperative HEENT: Atraumatic, PERRLA, EOMI, Normocephalic Neck: Supple, No JVD, Negative Carotid Bruits Lungs: Clear to auscultation, Normal air movement Cardiovascular: Regular rate, Normal S1, Normal S2, No murmurs Abdomen: Bowel Sounds Present, Soft, Non Tender Extremities: No edema, Capillary Refill Less than 3 Seconds Skin: No rashes, No breakdown Musculoskeletal: No Tenderness to Palpation of Joints or Extremities Neurological: Cranial nerves II-XII grossly intact Psych/Mental Status: Normal Affect, Appropriate Laboratory Results 08/25/20 19:13: POC Glucose > 500 H* 08/25/20 19:26: WBC 6.7, RBC 4.87, Hgb 14.4, Hct 44.3, MCV 91.0, MCH 29.6, MCHC 32.5, RDW Std Deviation 53.9 H, RDW Coeff of Kranthi 16.1 H, Plt Count 122 L, MPV 10.9, Immature Gran % (Auto) 0.400, Neut % (Auto) 84.2 H, Lymph % (Auto) 5.4 L, [place] % (Auto) 7.6, Eos % (Auto) 2.1, Baso % (Auto) 0.3, Absolute Neuts (auto) 5.6, Absolute Lymphs (auto) 0.36 L, Nucleated RBC % 0, Differential Comment SCANNED 08/25/20 19:26: Sodium 130 L, Potassium 3.9, Chloride 94 L, Carbon Dioxide 28.0, Anion Gap 8, BUN 33 H, Creatinine 2.63 H, Estim Creat Clear Calc 21.31, Est GFR (MDRD) Af Amer 30 L, Est GFR (MDRD) Non-Af 25 L, BUN/Creatinine Ratio 12.5, Glucose 804 H*, Calcium 9.1, Total Bilirubin 0.80, AST 9 L, ALT 27, Alkaline Phosphatase 88, Total Protein 7.7, Albumin 4.2, Globulin 3.5, Albumin/Globulin Ratio 1.2 08/25/20 19:26: Acetone Level NEGATIVE 08/25/20 20:05: Urine Color Straw, Urine Clarity Clear, Urine pH 6.0, Ur Specific [place] 1.010, Urine Protein Negative, Urine Glucose (UA) 1000 H, Urine Ketones Negative, Urine Occult Blood Negative, Urine Nitrite Negative, Urine Bilirubin Negative, Urine Urobilinogen Normal, Ur Leukocyte Esterase Negative, Urine RBC 0 SEEN, Urine WBC 0 SEEN, Ur Squamous Epith Cells 0 SEEN, Urine Bacteria 0 SEEN, Urine Mucus 0 SEEN Current Medications Sodium Chloride () 1,000 mls @ 150 mls/hr IV .Q6H40M [facility] Assessment/Plan All Active Problems (Last Reviewed 08/25/20 @ 21:[address] Aleksey Fulton MD) Hyperglycemia (Acute) Transient hypotension (Resolved) life vest (Resolved) The patient is a 79 year old M with a significant history of ischemic cardiomyopathy status post stent; paroxysmal A. fib; obstructive sleep apnea on home CPAP who presents emergency department with outpatient lab of hyperglycemia; and found to have severely elevated blood glucose at the emergency department 2. Acute hyperglycemia Blood glucose of 804 with sodium of 130. Received subcutaneous lispro 25 units at emergency department. IV bolus was ordered emergency department. Discussed emergent department doctor to get blood glucose 1 hour after insulin administration. Based on repeat blood glucose will stratify to the Unit that the patient can be admitted to. Based on blood glucose will start patient on insulin drip or basal; prandial and correction scale insulin. Cautious use of IV fluids in the setting of heart failure with severely reduced ejection fraction. Hold home glipizide and Metformin Pseudohyponatremia Sodium of 130 Glucose of 804 Corrected blood glucose is 141. Treat hyperglycemia as above. Ischemic cardiomyopathy/heart failure with reduced ejection fraction Echocardiogram on 06/06/2020: Estimated ejection fraction was 28%. Severe segmental systolic dysfunction. Akinetic apex. Mild anteroseptal akinesis. Mid anterior with severe hypokinesis. Lateral apex with hypokinesis. Also with mild valvular abnormalities. Pulmonary artery was normal size. Previously on LifeVest. Cautious use of IV fluids. Hold Lasix because of LAUREN. Hold potassium supplementation. Trend BMP and replace potassium as necessary. Aspirin and Brilinta continued Carvedilol continued LAUREN on CKD stage III Creatinine on presentation was 2.63 BUN 33 BUN/creatinine 12.5. Likely prerenal on top of intrinsic renal. Hold Lasix Avoid nephrotoxins Gentle IV hydration. Obstructive sleep apnea Patient on home CPAP with oxygen bled in; continued Paroxysmal A. fib Amiodarone continued Aspirin and Brilinta continued GERD PPI continued. BPH Flomax continued DVT prophylaxis Subcutaneous heparin Inpatient E&M: 33154 Init Hosp L3
[2020-08-25] MEDS: 0.9% Normal Saline 1,000 ML 150 ML IV (21:20)
[2020-08-25 22:16] LABS: Bedside Glucose > 500 mg/dL (70-110)
[2020-08-25 22:23] VITALS: BP 113/63; PULSE 60; RESP 16; TEMP 36.4; O2SAT 95
[2020-08-25] MEDS: Insulin Human 75/25 Kwickpen 10 UNIT SC (22:34)
[2020-08-25 23:02] VITALS: BMI 26.1
[2020-08-25 23:04] VITALS: BP 99/43; PULSE 62; RESP 16; TEMP 36.6; O2SAT 94
[2020-08-25 23:06] LABS: Osmolality, Serum 327 mOsm/KG (280-301)
[2020-08-25 23:15] VITALS: BMI 26.2
[2020-08-25] MEDS: 0.9% Normal Saline 1,000 ML 50 ML IV (23:19)
[2020-08-25] MEDS: Atorvastatin Calcium 80 MG Tablet PO (23:27)
[2020-08-25] MEDS: Heparin Injection (Vial) 5,000 UNIT/ML VIAL 5000 UNIT SC (23:27)
[2020-08-25] MEDS: TICAGRELOR 90 MG TABLET PO (23:27)
[2020-08-25 23:35] LABS: Bedside Glucose 410 mg/dL (70-110)
[2020-08-26] VITALS (7 sets, daily range): BP systolic 92–118; BP diastolic 44–53; PULSE 57–72; RESP 16–18; TEMP 36.4–36.6; O2SAT 94–97
[2020-08-26] MEDS: Insulin Lispro 100 UNIT/ML INSULN.PEN SC ×3 (03:03→22:30)
[2020-08-26 03:11] LABS: Bedside Glucose 153 mg/dL (70-110)
[2020-08-26 06:31] LABS: Bedside Glucose 95 mg/dL (70-110)
[2020-08-26 06:38] LABS: Absolute Lymphocyte Count 0.51 X10^3/uL (0.83-4.51); Absolute Neutrophil Count 5.1 X10^3/uL (2.0-7.7); Basophil# 0.02 X10^3/uL; Basophil% 0.3 % (0-1); Eosinophil# 0.32 X10^3/uL; Eosinophils% 4.8 % (0-5); Hematocrit 35.9 % (40-54); Hemoglobin 12.1 g/dL (13.0-16.5); Lymphocyte # 0.51 X10^3/ul (4.0); Lymphocyte % 7.7 % (19-41); Mean Corp Hgb Conc 33.7 g/dL (32-36); Mean Corpuscular Hgb 29.4 pg (27.0-32.0); Mean Corpuscular Volume 87.3 fL (80-94); Mean Platelet Vol. 10.9 fl (6.2-12.0); Monocyte# 0.65 X10^3/uL; Monocyte% 9.8 % (0-10); NRBC Flagged by Analyzer 0 % (0-5); Neutrophil # 5.06 X10^3/uL (2.7-7.7); Neutrophil % 76.6 % (47-70); POSITIVE DIFFERENTIAL YES; Platelet Count 130 K/mm3 (150-450); RBC Distribution Width CV 16.2 % (11.6-14.6); RBC Distribution Width SD 52.1 fl (35.1-43.9); Red Blood Count 4.11 M/mm3 (4.6-6.2); White Blood Count 6.6 K/mm3 (4.4-11.0)
[2020-08-26 06:40] LABS: Differential Indicated SCAN CRITERIA MET
[2020-08-26 07:08] LABS: Anion Gap 5 (5-15); BUN 30 mg/dL (7-18); BUN/Creat Ratio 16.9 RATIO (10-20); Calcium,Total 8.6 mg/dL (8.5-10.1); Chloride 109 mmol/L (98-107); Creatinine, Serum 1.77 mg/dL (0.70-1.30); EST Glomerular Filtration Rate 39 mL/min (>60); Est Glom Filt Rate - Afr Amer 48 mL/min (>60); Estimated Creatinine Clearance 29.54 ml/min; Glucose 93 mg/dL (74-106); Potassium 3.2 mmol/L (3.5-5.1); Sodium Level 141 mmol/L (136-145)
[2020-08-26 07:12] LABS: Differential Comment SCANNED
[2020-08-26] MEDS: Insulin Lispro 100 UNIT/ML INSULN.PEN 10 UNIT SC ×3 (08:35→17:18)
[2020-08-26] MEDS: Carvedilol 12.5 MG Tablet PO ×2 (08:36→17:19)
[2020-08-26] MEDS: Aspirin E.C. 81 MG Tablet PO (08:36)
[2020-08-26] MEDS: Amiodarone 200 MG Tablet PO (08:36)
[2020-08-26] MEDS: Iron Polysaccharide Complex 150 MG CAPSULE PO (08:36)
[2020-08-26] MEDS: Tamsulosin HCl 0.4 MG Capsule PO (08:37)
[2020-08-26] MEDS: Pantoprazole Sodium 40 MG Tablet PO (08:37)
[2020-08-26] MEDS: TICAGRELOR 90 MG TABLET PO ×2 (08:37→22:26)
--- NOTE | 2020-08-26 08:54 | PCM.PN.HOSP ---
Patient Problems: Active and Suspected Problems (Last Reviewed 08/25/20 @ 22:[address] Aleksey Fulton MD) Hyperglycemia (Acute) Subjective: Feels fine. Denies any new complaints. He checks his blood sugar at home in the morning and normally at around 95. Vitals/I&O's: Vital Signs Temp Pulse Resp BP Pulse Ox 36.6 C 57 L 18 118/53 L 95 08/26/20 06:27 08/26/20 06:27 08/26/20 06:27 08/26/20 06:27 08/26/20 06:27 Oxygen Flow Rate (L/min) 2 Oxygen Delivery Method Nasal Cannula Weight: 73.5 kg Body Mass Index (BMI) 26.1 Finger Stick Blood Glucose 500 Intake and Output for Last 24 Hours 08/24/20 08/25/20 08/26/20 23:59 23:59 23:59 Intake Total 1297.5 / 1297.5 Output Total 225 / 225 Balance 1297.5 / 1297.5 -225 / -225 General: Alert, No apparent distress HEENT: Atraumatic, Normocephalic Oral: Moist Mucosa, No Gingival or Mucosal Lesions/ Ulcerations Neck: No Nodes, Thyroid Normal Size and Texture Lungs: Clear to auscultation, Normal air movement, No rhonchi, No wheeze, No rales Cardiovascular: Regular rate, Regular Rhythm, Normal S1, Normal S2, No murmurs Abdomen: Bowel Sounds Present, Soft, Non Tender, Non-Distended, No Hepato-splenomegaly Laboratory Results 08/25/20 19:13: POC Glucose > 500 H* 08/25/20 19:26: WBC 6.7, RBC 4.87, Hgb 14.4, Hct 44.3, MCV 91.0, MCH 29.6, MCHC 32.5, RDW Std Deviation 53.9 H, RDW Coeff of Kranthi 16.1 H, Plt Count 122 L, MPV 10.9, Immature Gran % (Auto) 0.400, Neut % (Auto) 84.2 H, Lymph % (Auto) 5.4 L, [place] % (Auto) 7.6, Eos % (Auto) 2.1, Baso % (Auto) 0.3, Absolute Neuts (auto) 5.6, Absolute Lymphs (auto) 0.36 L, Nucleated RBC % 0, Differential Comment SCANNED 08/25/20 19:26: Sodium 130 L, Potassium 3.9, Chloride 94 L, Carbon Dioxide 28.0, Anion Gap 8, BUN 33 H, Creatinine 2.63 H, Estim Creat Clear Calc 21.31, Est GFR (MDRD) Af Amer 30 L, Est GFR (MDRD) Non-Af 25 L, BUN/Creatinine Ratio 12.5, Glucose 804 H*, Calcium 9.1, Total Bilirubin 0.80, AST 9 L, ALT 27, Alkaline Phosphatase 88, Total Protein 7.7, Albumin 4.2, Globulin 3.5, Albumin/Globulin Ratio 1.2 08/25/20 19:26: Acetone Level NEGATIVE 08/25/20 19:26: Serum Osmolality 327 H 08/25/20 20:05: Urine Color Straw, Urine Clarity Clear, Urine pH 6.0, Ur Specific [place] 1.010, Urine Protein Negative, Urine Glucose (UA) 1000 H, Urine Ketones Negative, Urine Occult Blood Negative, Urine Nitrite Negative, Urine Bilirubin Negative, Urine Urobilinogen Normal, Ur Leukocyte Esterase Negative, Urine RBC 0 SEEN, Urine WBC 0 SEEN, Ur Squamous Epith Cells 0 SEEN, Urine Bacteria 0 SEEN, Urine Mucus 0 SEEN 08/25/20 22:08: POC Glucose > 500 H* 08/25/20 23:25: POC Glucose 410 H 08/26/20 03:00: POC Glucose 153 H 08/26/20 06:18: WBC 6.6, RBC 4.11 L, Hgb 12.1 L, Hct 35.9 L, MCV 87.3, MCH 29.4, MCHC 33.7, RDW Std Deviation 52.1 H, RDW Coeff of Kranthi 16.2 H, Plt Count 130 L, MPV 10.9, Immature Gran % (Auto) 0.800, Neut % (Auto) 76.6 H, Lymph % (Auto) 7.7 L, [place] % (Auto) 9.8, Eos % (Auto) 4.8, Baso % (Auto) 0.3, Absolute Neuts (auto) 5.1, Absolute Lymphs (auto) 0.51 L, Nucleated RBC % 0, Differential Comment SCANNED 08/26/20 06:18: Sodium 141, Potassium 3.2 L, Chloride 109 H, Carbon Dioxide 27.0, Anion Gap 5, BUN 30 H, Creatinine 1.77 H, Estim Creat Clear Calc 29.54, Est GFR (MDRD) Af Amer 48 L, Est GFR (MDRD) Non-Af 39 L, BUN/Creatinine Ratio 16.9, Glucose 93, Calcium 8.6 08/26/20 06:20: POC Glucose 95 Current Medications Acetaminophen (Acetaminophen 325 Mg Tablet) 650 mg PO Q6H PRN PRN PRN Reason: Pain Score 1-10/Temp > 100.7 F Amiodarone HCl ([facility]ar[facility] 200 Mg Tablet) [facility] Admin: 08/26/20 08:36 Dose: 200 mg Documented by: Aspirin (Aspirin E.C. 81 Mg Tablet) 81 mg PO DAILY@0800 [facility] Last Admin: 08/26/20 08:36 Dose: 81 mg Documented by: Atorvastatin Calcium (Ator[facility]atin Calcium 80 Mg Tablet) [facility] Last Admin: 08/25/20 23:27 Dose: 80 mg Documented by: Carvedilol (Carvedilol 12.5 Mg Tablet) [facility] Last Admin: 08/26/20 08:36 Dose: 12.5 mg Documented by: Dextrose (Dextrose 50%-Water 25 Gm/50 Ml Disp.Syrin) 0 gm IV X1 PRN; Protocol PRN Reason: Hypoglycemia Glucagon (Glucagon 1 Mg/Ml Syringe) 1 mg IM .X1 PRN PRN Reason: Hypoglycemia Heparin Sodium (Porcine) (Heparin Injection (Vial) 5,000 Unit/Ml Vial) 5,000 unit SC Q12 [facility] Last Admin: 08/25/20 23:27 Dose: 5,000 unit Documented by: Sodium Chloride () 1,000 mls @ 50 mls/hr IV .Q20H [facility] Stop: 08/26/20 18:53 Last Admin: 08/25/20 23:19 Dose: 50 mls/hr Documented by: Insulin Glargine (Insulin Glargine 100 Units/Ml Pen) 30 units SC QHS [facility] Last Admin: 08/25/20 23:27 Dose: 30 u Documented by: Insulin Human Lispro (Insulin Lispro 100 Unit/Ml Insuln.Pen) 0 unit SC ACHS & 3AM [facility]; Protocol Last Admin: 08/26/20 06:22 Dose: Not Given Documented by: Insulin Human Lispro (Insulin Lispro 100 Unit/Ml Insuln.Pen) 10 unit SC 0700 [facility] Last Admin: 08/26/20 08:35 Dose: 10 u Documented by: Insulin Human Lispro (Insulin Lispro 100 Unit/Ml Insuln.Pen) 10 unit SC 1600 [facility] Insulin Human Lispro (Insulin Lispro 100 Unit/Ml Insuln.Pen) 10 unit SC 1100 [facility] Melatonin (Melatonin 3 Mg Tablet) 3 mg PO QHS PRN PRN PRN Reason: INSOMNIA Ondansetron HCl (Ondansetron 4 Mg/2 Ml Vial) 4 mg IV Q8H PRN PRN PRN Reason: NAUSEA/VOMITING Pantoprazole Sodium (Pantoprazole Sodium 40 Mg Tablet) 40 mg PO DAILY [facility] Last Admin: 08/26/20 08:37 Dose: 40 mg Documented by: Polysaccharide Iron Complex (Iron Polysaccharide Complex 150 Mg Capsule) 150 mg PO DAILYCM [facility] Last Admin: 08/26/20 08:36 Dose: 150 mg Documented by: Senna/Docusate Sodium (Senna/Docusate Sodium 1 Tablet) 2 tablet PO BID PRN PRN PRN Reason: Constipation Sodium Chloride (0.9% Saline Lock 10 Ml Syringe) 10 - 40 ml IV UD PRN PRN Reason: SALINE FLUSH Tamsulosin HCl (Tamsulosin Hcl 0.4 Mg Capsule) 0.4 mg PO DAILY [facility] Last Admin: 08/26/20 08:37 Dose: 0.4 mg Documented by: Ticagrelor (Ticagrelor 90 Mg Tablet) 90 mg PO BID [facility] Last Admin: 08/26/20 08:37 Dose: 90 mg Documented by: STROKE Vital Signs/Narrative: Vital Signs Temp Pulse Resp BP Pulse Ox 08/26/20 06:27 36.6 C 57 L 18 118/53 L 95 Medical Necessity - Tobacco Use Smoking Status: Never smoker Tobacco Use: Non-smoker Assessment/Plan All Active Problems (Last Reviewed 08/25/20 @ 22:[address] Aleksey Fulton MD) Hyperglycemia (Acute) Transient hypotension (Resolved) life vest (Resolved) 1. Diabetes mellitus type 2, uncontrolled Blood sugar was 84 upon arrival. Hemoglobin A1c from yesterday was 12.1. So patient's blood sugars are uncontrolled at baseline contrary to the patient stating that his blood sugars are 90 5 in the morning which I certainly could be blood throughout the day they are probably in the 300 range. Patient did receive 30 units of insulin glargine last night I would like to give the patient until this afternoon to make sure that he is overall doing well. Patient also on 10 units of log with meals. Once again continue to monitor the patient to ensure he does not become hypoglycemic with this regimen. Would hold his oral agents 2. Hyponatremia: Resolved Pseudohyponatremia due to elevated blood sugar, no additional work-up 3. Hypokalemia: Replace, check magnesium. 4. Acute kidney injury Creatinine 2.63, down to 1.77 with IV fluids Since patient eating, will Hep-Lock IV 5. VTE prophylaxis with subcu heparin. Inpatient E&M: 27603 Subs Hosp L2
--- NOTE | 2020-08-26 09:30 | CASEMGMT ---
RN SAULO Face to Face with patient for initial transition planning/care coordination assessment. RN CM introduced self and role at [facility]. Patient lying in bed, alert and oriented. Patient willing to participate in assessment and is able to answer all questions appropriately. Care providers, pharmacy, and demographics verified. Patient wishes to discharge home, denies need for home health at this time. Patient states he has no further needs or concerns at this time. CM to follow for discharge planning needs that may arise. 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 Patient states he is independent at home and able to ambulate stairs. Transportation: self//family DME/HHC: Patient states he has shower chair, walker, cpap, and oxygen at night at 2lpm through [employer]. Patient does not have glucometer at home. [facility] Disposition Plan: Patient to discharge home with family support and follow-up plans in place. Shira FERGUSON, RN, CM
[2020-08-26] MEDS: Heparin Injection (Vial) 5,000 UNIT/ML VIAL 5000 UNIT SC ×2 (09:35→22:26)
[2020-08-26] MEDS: 0.9% Saline Lock 10 ML Syringe IV ×2 (09:38→22:25)
[2020-08-26 11:15] LABS: Magnesium 2.1 mg/dL (1.6-2.6)
[2020-08-26 11:40] LABS: Bedside Glucose 237 mg/dL (70-110)
--- NOTE | 2020-08-26 16:07 | SLEEP ---
Spoke w/Richa ARCEO regarding patient's diagnosed Central Sleep Apnea and reviewed 05/31/[address] [facility]. Spoke w/Rosita, RN for Dr. Bean to confirm that the patient had followed up with them and was prescribed CPAP 10 cm with 2 lpm supplemental oxygen bleed in. ASV titration was not performed due to EF<30%. The patient followed up 08/01/[address] Bean with improvement on prescribed PAP Therapy.
[2020-08-26 17:15] LABS: Bedside Glucose 87 mg/dL (70-110)
[2020-08-26] MEDS: Atorvastatin Calcium 80 MG Tablet PO (22:26)
[2020-08-26 22:45] LABS: Bedside Glucose 172 mg/dL (70-110)
[2020-08-27 02:23] VITALS: BP 101/41; PULSE 57; RESP 18; TEMP 36.4; O2SAT 94
[2020-08-27 02:36] LABS: Bedside Glucose 98 mg/dL (70-110)
[2020-08-27 07:15] VITALS: O2SAT 94
[2020-08-27 08:00] VITALS: PULSE 60; RESP 20
[2020-08-27 08:25] VITALS: BP 111/64; PULSE 66; RESP 18; TEMP 36.9; O2SAT 97
[2020-08-27] MEDS: Insulin Lispro 100 UNIT/ML INSULN.PEN 10 UNIT SC (08:28)
[2020-08-27] MEDS: Carvedilol 12.5 MG Tablet PO (08:29)
[2020-08-27] MEDS: Insulin Lispro 100 UNIT/ML INSULN.PEN SC (08:29)
[2020-08-27] MEDS: Amiodarone 200 MG Tablet PO (08:30)
[2020-08-27] MEDS: Aspirin E.C. 81 MG Tablet PO (08:30)
[2020-08-27] MEDS: Iron Polysaccharide Complex 150 MG CAPSULE PO (08:30)
[2020-08-27 08:36] LABS: Bedside Glucose 170 mg/dL (70-110)
--- NOTE | 2020-08-27 09:37 | PCM.DC ---
- Discharge Diagnoses Current Active Problems: Current Active and Chronic Problems (Last Reviewed 08/25/20 @ 22:[address] Aleksey Fulton MD) Hyperglycemia (Acute) Central sleep apnea (Chronic) Obstructive sleep apnea (Chronic) Paroxysmal atrial fibrillation (Chronic 04/19/20) History of coronary artery stent placement (Chronic 04/19/20) PCI-DANAY-Mid LMT w/ 4.0 x 8 mm Xience [place] Stent 04/19/2020 Chronic kidney disease (CKD) (Chronic) Non-STEMI (non-ST elevated myocardial infarction) (Chronic 04/19/20) Atherosclerotic heart disease [place] coronary artery w/angina pectoris (Chronic) Ischemic cardiomyopathy (Chronic) Premature ventricular contractions (Chronic) Essential (primary) hypertension (Chronic) Hyperlipidemia (Chronic) You will use the following diet at home:: Calorie/Carbohydrate Controlled (specify 1200, 1400, etc) - 1800 Instructions: Using a Blood Sugar Log, Long-Term Complications of Diabetes, Hyperglycemia (High Blood Sugar), What Is Type 2 Diabetes?, Using Injected Insulin, Types of Insulin, Healthy Meals for Diabetes, Diabetes: Understanding Carbohydrates, Eating Out When You Have Diabetes, Exercise to Manage Your Blood Sugar, Diabetes: Sick-Day Plan Allergies/Adverse Reactions: Allergies No Known Allergies Allergy (Verified 08/25/20 18:54) Medications to take at Discharge tamsulosin 0.4 mg capsule 0.4 mg PO DAILY 09/17/19 aspirin 81 mg tablet,delayed release 81 mg PO DAILY@0800 09/30/19 atorvastatin 80 mg tablet 80 mg PO QHS 04/28/20 pantoprazole 40 mg tablet,delayed release 40 mg PO DAILY 04/28/20 Nitroglycerin (INPATIENT USE) [Nitrostat] 0.4 mg SUBLINGUAL Q5M PRN 05/04/20 polysaccharide iron complex 150 mg iron capsule 150 mg PO DAILYCM #90 cap 06/06/20 ticagrelor 90 mg tablet 90 mg PO BID #180 tab 07/28/20 carvedilol 12.5 mg tablet 12.5 mg PO BID #180 tab 07/29/20 amiodarone 200 mg tablet 200 mg PO DAILY #90 tab 08/11/20 Iron Polysaccharide Complex [Ferrex 150] 150 mg PO DAILY 08/25/20 Mirtazapine [Remeron] 15 mg PO DAILY 08/26/20 Insulin Glargine [Lantus SoloStar Pen] 30 units SC QHS #1 pen 08/27/20 Insulin Lispro [Humalog KwikPen] 6 unit SC TIDCM #1 insuln.pen 08/27/20 [place], Insulin Disposable [Novofine Autocover 30G Needle] 1 ea MISCELL. UD #1 box 08/27/20 The following prescriptions were given: Insulin Lispro [Humalog KwikPen] 6 unit SC TIDCM #1 insuln.pen Transmission Status: Pending to [facility] Insulin Glargine [Lantus SoloStar Pen] 30 units SC QHS #1 pen Transmission Status: Pending to [facility] [place], Insulin Disposable [Novofine Autocover 30G Needle] 1 ea MISCELL. UD #1 box Transmission Status: Pending to [facility] Orders to be completed after discharge: Glucometer Location: None Selected Primary Care Physician: Vladimir Healy MD [Primary Care Provider] - Within 2 Weeks Test Results: Test results from this visit will be discussed in further detail at your follow-up appointment, if applicable. Proposed Discharge Date: 08/27/20
[2020-08-27] MEDS: Tamsulosin HCl 0.4 MG Capsule PO (09:40)
[2020-08-27] MEDS: Pantoprazole Sodium 40 MG Tablet PO (09:40)
[2020-08-27] MEDS: Heparin Injection (Vial) 5,000 UNIT/ML VIAL 5000 UNIT SC (09:40)
[2020-08-27] MEDS: TICAGRELOR 90 MG TABLET PO (09:40)
--- NOTE | 2020-08-27 09:42 | PCM.DC.SUM ---
Discharge Date and Diagnosis - Problem List Patient Problems: Active and Suspected Problems (Last Reviewed 08/25/20 @ 22:[address] Aleksey Fulton MD) Hyperglycemia (Acute) Date of Admission: 08/25/20 Date of Discharge: 08/27/20 - Primary Discharge Diagnosis Acute Problems: Active Problems (Last Reviewed 08/25/20 @ 22:[address] Aleksey Fulton MD) Hyperglycemia (Acute) - Secondary Discharge Diagnosis Chronic Problems: Chronic Problems (Last Reviewed 08/25/20 @ 22:[address] Aleksey Fulton MD) Central sleep apnea (Chronic) Obstructive sleep apnea (Chronic) Paroxysmal atrial fibrillation (Chronic 04/19/20) History of coronary artery stent placement (Chronic 04/19/20) PCI-DANAY-Mid LMT w/ 4.0 x 8 mm Xience Keturah Stent 04/19/2020 Chronic kidney disease (CKD) (Chronic) Non-STEMI (non-ST elevated myocardial infarction) (Chronic 04/19/20) Atherosclerotic heart disease [place] coronary artery w/angina pectoris (Chronic) Ischemic cardiomyopathy (Chronic) Premature ventricular contractions (Chronic) Essential (primary) hypertension (Chronic) Hyperlipidemia (Chronic) Hospital Course and Treatment Operations: None Procedures: None Summary of Care Provided: The patient is a 79 year old M Evelio with abnormal lab work. Patient blood sugar was in the 800s as well as he had acute kidney injury with a creatinine of 2.63. Patient was thus not in diabetic ketoacidosis but was started on insulin with insulin glargine 30+ prandial insulin at 10. Patient's blood sugars have steadily improved. Patient did have hemoglobin A1c of 12.1. Previously, the patient was on oral agents but patient is going to be on basal as well as prandial insulin. Patient will be on 30 units of insulin glargine +6 units of NovoLog with meals. Patient will also be given prescription for glucometer testing strips lancets as well as insulin needles. She was monitored overnight to ensure that he did not become hypoglycemic and he has thus far tolerated the treatment well and will be discharged home. [] Patient Problems: Active and Suspected Problems (Last Reviewed 08/25/20 @ 22:[address] Aleksey Fulton MD) Hyperglycemia (Acute) - Physical Exam Vitals/I&O's: Vital Signs Temp Pulse Resp BP Pulse Ox 36.9 C 66 18 111/64 97 08/27/20 08:25 08/27/20 08:25 08/27/20 08:25 08/27/20 08:25 08/27/20 08:25 Oxygen Flow Rate (L/min) 1 Oxygen Delivery Method Room Air Weight: 73.5 kg Body Mass Index (BMI) 26.1 Finger Stick Blood Glucose 500 Intake and Output for Last 24 Hours 08/25/20 08/26/20 08/27/20 23:59 23:59 23:59 Intake Total 1297.5 / 1297.5 1666.67 / 1866.67 200 / 200 Output Total 325 / 450 125 / 125 Balance 1297.5 / 1297.5 1341.67 / 1416.67 75 / 75 General: Alert, No apparent distress HEENT: Atraumatic, Normocephalic Psych/Mental Status: Normal Affect, Appropriate Laboratory Results 08/26/20 06:18: Magnesium 2.1 08/26/20 11:10: POC Glucose 237 H 08/26/20 16:59: POC Glucose 87 08/26/20 22:24: POC Glucose 172 H 08/27/20 02:32: POC Glucose 98 08/27/20 08:24: POC Glucose 170 H Current Medications Acetaminophen (Acetaminophen 325 Mg Tablet) 650 mg PO Q6H PRN PRN PRN Reason: Pain Score 1-10/Temp > 100.7 F Amiodarone HCl (Amiodar[facility] 200 Mg Tablet) [facility] Last Admin: 08/27/20 08:30 Dose: 200 mg Documented by: Aspirin (Aspirin E.C. 81 Mg Tablet) 81 mg PO DAILY@0800 [facility] Last Admin: 08/27/20 08:30 Dose: 81 mg Documented by: Atorvastatin Calcium (Atorvastatin Calcium 80 Mg Tablet) 80 mg PO QHS [facility] Last Admin: 08/26/20 22:26 Dose: 80 mg Documented by: Carvedilol (Carvedilol 12.5 Mg Tablet) [facility] Last Admin: 08/27/20 08:29 Dose: 12.5 mg Documented by: Dextrose (Dextrose 50%-Water 25 Gm/50 Ml Disp.Syrin) 0 gm IV X1 PRN; Protocol PRN Reason: Hypoglycemia Glucagon (Glucagon 1 Mg/Ml Syringe) 1 mg IM .X1 PRN PRN Reason: Hypoglycemia Heparin Sodium (Porcine) (Heparin Injection (Vial) 5,000 Unit/Ml Vial) 5,000 unit SC Q12 [facility] Last Admin: 08/27/20 09:40 Dose: 5,000 unit Documented by: Insulin Glargine (Insulin Glargine 100 Units/Ml Pen) 30 units SC QHS [facility] Last Admin: 08/26/20 22:30 Dose: 30 u Documented by: Insulin Human Lispro (Insulin Lispro 100 Unit/Ml Insuln.Pen) 0 unit SC ACHS & 3AM [facility]; Protocol Last Admin: 08/27/20 08:29 Dose: 3 units Documented by: Insulin Human Lispro (Insulin Lispro 100 Unit/Ml Insuln.Pen) 10 unit SC 0700 [facility] Last Admin: 08/27/20 08:28 Dose: 10 u Documented by: Insulin Human Lispro (Insulin Lispro 100 Unit/Ml Insuln.Pen) 10 unit SC 1600 [facility] Last Admin: 08/26/20 17:18 Dose: 10 u Documented by: Insulin Human Lispro (Insulin Lispro 100 Unit/Ml Insuln.Pen) 10 unit SC 1100 [facility] Last Admin: 08/26/20 12:06 Dose: 10 u Documented by: Melatonin (Melatonin 3 Mg Tablet) 3 mg PO QHS PRN PRN PRN Reason: INSOMNIA Ondansetron HCl (Ondansetron 4 Mg/2 Ml Vial) 4 mg IV Q8H PRN PRN PRN Reason: NAUSEA/VOMITING Pantoprazole Sodium (Pantoprazole Sodium 40 Mg Tablet) 40 mg PO DAILY [facility] Last Admin: 08/27/20 09:40 Dose: 40 mg Documented by: Polysaccharide Iron Complex (Iron Polysaccharide Complex 150 Mg Capsule) [facility] Last Admin: 08/27/20 08:30 Dose: 150 mg Documented by: Potassium Chloride (Potassium Chloride 20 Meq Tablet) 40 meq [facility]ID[facility] Last Admin: 08/27/20 08:30 Dose: 40 meq Documented by: Senna/Docusate Sodium (Senna/Docusate Sodium 1 Tablet) 2 tablet PO BID PRN PRN PRN Reason: Constipation Sodium Chloride (0.9% Saline Lock 10 Ml Syringe) 10 - 40 ml IV UD PRN PRN Reason: SALINE FLUSH Last Admin: 08/26/20 22:25 Dose: 10 ml Documented by: Tamsulosin HCl (Tamsulosin Hcl 0.4 Mg Capsule) 0.4 mg PO DAILY [facility] Last Admin: 08/27/20 09:40 Dose: 0.4 mg Documented by: Ticagrelor (Ticagrelor 90 Mg Tablet) 90 mg PO BID [facility] Last Admin: 08/27/20 09:40 Dose: 90 mg Documented by: Discharge Diet: No Restrictions Home Medications: Medications to take at Discharge tamsulosin 0.4 mg capsule 0.4 mg PO DAILY 09/17/19 aspirin 81 mg tablet,delayed release 81 mg PO DAILY@0800 09/30/19 atorvastatin 80 mg tablet 80 mg PO QHS 04/28/20 pantoprazole 40 mg tablet,delayed release 40 mg PO DAILY 04/28/20 Nitroglycerin (INPATIENT USE) [Nitrostat] 0.4 mg SUBLINGUAL Q5M PRN 05/04/20 polysaccharide iron complex 150 mg iron capsule 150 mg PO DAILY #90 cap 06/06/20 ticagrelor 90 mg tablet 90 mg PO BID #180 tab 07/28/20 carvedilol 12.5 mg tablet 12.5 mg PO BID #180 tab 07/29/20 amiodarone 200 mg tablet 200 mg PO DAILY #90 tab 08/11/20 Iron Polysaccharide Complex [Ferrex 150] 150 mg PO DAILY 08/25/20 Mirtazapine [Remeron] 15 mg PO DAILY 08/26/20 Insulin Glargine [Lantus SoloStar Pen] 30 units SC QHS #1 pen 08/27/20 Insulin Lispro [Humalog KwikPen] 6 unit SC TIDCM #1 insuln.pen 08/27/20 [place], Insulin Disposable [Novofine Autocover 30G Needle] 1 ea MISCELL. UD #1 box 08/27/20 Following Prescriptions Were Given to Patient: Insulin Lispro [Humalog KwikPen] 6 unit SC TIDCM #1 insuln.pen Transmission Status: Pending to [facility] Insulin Glargine [Lantus SoloStar Pen] 30 units SC QHS #1 pen Transmission Status: Pending to [facility] [place], Insulin Disposable [Novofine Autocover 30G Needle] 1 ea MISCELL. UD #1 box Transmission Status: Pending to [facility] Other Amb Orders: Glucometer Location: None Selected Primary Care Physician: Vladimir Healy MD [Primary Care Provider] - Within 2 Weeks Patient Instructions: Using a Blood Sugar Log, Long-Term Complications of Diabetes, Hyperglycemia (High Blood Sugar), What Is Type 2 Diabetes?, Using Injected Insulin, Types of Insulin, Healthy Meals for Diabetes, Diabetes: Understanding Carbohydrates, Eating Out When You Have Diabetes, Exercise to Manage Your Blood Sugar, Diabetes: Sick-Day Plan Disposition: Home Minutes spent on discharge:: 28 Patient Condition:: Good Medical Necessity - Tobacco Use Smoking Status: Never smoker Tobacco Use: Non-smoker Meaningful Use Info Meaningful Use Diagnoses (Choose all that apply): None applicable Inpatient E&M: 94806 [facility]
--- NOTE | 2020-08-27 11:15 | NURSING ---
DAUGHTER IN LAW JOVAN HERE AND FUR GLAZER TALKING ATR LENGTH WITH BOTH PT AND FAMILY MEMBER
--- NOTE | 2020-08-27 11:17 | CM.UR ---
Was alerted this patient is new on insulin. Humalog ac and lantus at hs. Nurse asked about process for getting a glucometer. Explained that insurances often have a preferred brand. Noted his insurance has customer service 7 days per week. Called and spoke with field representatives director who confirmed with pharmacy benefits that preferred brand is Contour next. contacted his local pharmacy and confirmed they had the [facility] Contour next glucometer and strips. Rosaura Diaz RN, CCM
[2020-08-27 12:16] LABS: Bedside Glucose 213 mg/dL (70-110)
--- NOTE | 2020-08-29 16:11 | CASEMGMT ---
ROB VERNON Discharge Follow-up Phone Call: REGIS: Bobby Strata: 3 Call Date: 08/29/20 Discharge Date: 08/27/20 Time of Call: 1612 Duration: 5 Admitting Diagnosis: Acute hyperglycemia ROB VERNON completed follow-up phone call after recent hospitalization. Patient states he is doing well and family has been assisting him with checking his blood sugar and insulin. Patient had no questions or concerns at this time. Patient was able to fill prescriptions without any issues. Patient has follow-up appt scheduled with PCP. Patient had no further questions or concerns at this time.
== END 2020-08-27 13:44 | disposition home or self-care (01) | DRG 638 ==
LOC: ED 21:21 → MS3 22:25
PROVIDERS: Admitting Provider Hospitalist; Emergency Provider Emergency Medicine; PCP Family Medicine
DX: E11.65 Type 2 diabetes mellitus with hyperglycemia (principal); N17.9 Acute kidney failure, unspecified; I13.0 Hypertensive heart and chronic kidney disease with heart failure and stage 1 through stage 4 chronic kidney disease, or unspecified chronic kidney disease; I50.20 Unspecified systolic (congestive) heart failure; E11.22 Type 2 diabetes mellitus with diabetic chronic kidney disease; N18.30 Chronic kidney disease, stage 3 unspecified; E87.6 Hypokalemia; I48.0 Paroxysmal atrial fibrillation; I25.119 Atherosclerotic heart disease of native coronary artery with unspecified angina pectoris; I49.3 Ventricular premature depolarization; I25.5 Ischemic cardiomyopathy; J44.9 Chronic obstructive pulmonary disease, unspecified; E78.5 Hyperlipidemia, unspecified; G47.33 Obstructive sleep apnea (adult) (pediatric); G47.31 Primary central sleep apnea; N40.0 Benign prostatic hyperplasia without lower urinary tract symptoms; K21.9 Gastro-esophageal reflux disease without esophagitis; I25.2 Old myocardial infarction; Z79.82 Long term (current) use of aspirin; Z79.02 Long term (current) use of antithrombotics/antiplatelets; Z79.899 Other long term (current) drug therapy; Z95.5 Presence of coronary angioplasty implant and graft
CPT/HCPCS: 36415; 80048; 80053; 81001; 82009; 82962; 83036; 83735; 83930; 84443; 85025; 97802; 97803; 99284; J7030; A4216

== ENCOUNTER → 2020-09-26 09:41 | Outpatient (CLI) | payer MEDICARE, SELFPAY ==
--- NOTE | 2020-09-26 09:47 | ECHOD_ITS ---
Reason For Study: CAD Procedure This was a 2D Doppler, Color Flow transthoracic echocardiogram. Exam performed in department. Left Ventricle Normal LV size. The estimated ejection fraction is 45 %. The global longitudinal strain = -12.4% (abnormal). Stage 1 diastolic dysfunction. [place] : Akinetic. Lateral [place] : Hypokinetic. Right Ventricle Normal RV size. Normal systolic function. Atria Normal left atrium. Normal right atrium. Mitral Valve Normal mitral valve. Mild-Moderate (1-2+) eccentric mitral valve insufficiency. Tricuspid Valve Normal tricuspid valve. Mild to moderate (1-2+) tricuspid valve insufficiency. Aortic Valve Trisinus/trileaflet aortic valve. Mild focal aortic valve calcification. Mild (1+) aortic valve insufficiency. Pulmonic Valve Normal pulmonic valve. Mild (1+) pulmonic valve insufficiency. Great Vessels Normal aortic root. The pulmonary artery is normal size. Normal inferior vena cava. Pericardium/Pleural No pericardial effusion. MMode/2D Measurements & Calculations LVIDd: 5.0 cm IVSd: 1.3 cm LVOT diam: 2.0 cm LVIDs: 3.8 cm LVPWd: 1.0 cm LVOT area: 3.1 cm2 RVDd: 4.0 cm FS: 23.5 % Ao root diam: 3.4 cm LAV(MOD-bp): 75.1 ml Aortic Valve Planimetry: 1.8 cm2 LAV(MOD-bp) Indexed: 39.0 ml/m2 LAV(MOD-sp2): 84.1 ml LAV(MOD-sp4): 59.2 ml LA dimension(2D): 4.5 cm LA A4 area: 19.9 cm2 RA A4 area: 12.4 cm2 Time Measurements MV dec time: 0.41 sec Doppler Measurements & Calculations MV E max noah: 57.0 cm/sec Lat Peak E' Noah: 3.5 cm/sec Med Peak E' Noah: 4.1 cm/sec MV A max noah: 77.4 cm/sec E/E' lat: 16.4 E/E' med: 14.0 MV E/A: 0.74 Ao V2 max: 164.9 cm/sec AI max noah: 442.7 cm/sec LV V1 max: 96.4 cm/sec Ao max P.1 mmHg AI max P.5 mmHg LV V1 max P.7 mmHg Ao V2 mean: 105.6 cm/sec AI dec slope: 310.5 cm/sec2 LV V1 mean P.8 mmHg Ao mean P.3 mmHg AI P1/2t: 417.6 msec LV V1 mean: 62.4 cm/sec Ao V2 VTI: 39.4 cm LV V1 VTI: 22.7 cm ODESSA(I,D): 1.8 cm2 ODESSA(V,D): 1.8 cm2 SV(LVOT): 70.5 ml PA V2 max: 84.6 cm/sec TR max noah: 236.4 cm/sec TR max P.4 mmHg Interpretation Summary Normal LV size. The estimated ejection fraction is 45 %. Mild (1+) aortic valve insufficiency. Mild to moderate (1-2+) tricuspid valve insufficiency. Mild-Moderate (1-2+) eccentric mitral valve insufficiency. Stage 1 diastolic dysfunction. The global longitudinal strain = -12.4% (abnormal). Compared to previous study, the left ventricular systolic function has improved.. Ordering Physician: Mikhail Siu Referring Physician: ALENA HIDALGO Performed By: Columba Perkins, MARIA LUISACS, RVT
== END ==
PROVIDERS: PCP Family Medicine; Referring Provider Internal Medicine Cardiovascular Disease; Visit Provider Internal Medicine Cardiovascular Disease
DX: G47.31 Primary central sleep apnea (principal)
CPT/HCPCS: 93306

== ENCOUNTER → 2020-12-05 08:02 | Outpatient (CLI) | payer MEDICARE, SELFPAY ==
[2020-10-27 14:43] VITALS: BMI 29.0
[2020-12-05 10:39] LABS: AST(SGOT) 14 U/L (15-37); Alanine Aminotransfer ALT/SGPT 23 U/L (16-61); Albumin, Serum 3.6 g/dL (3.2-5.0); Alkaline Phosphatase 55 U/L (45-117); Anion Gap 2 (5-15); BUN 32 mg/dL (7-18); BUN/Creat Ratio 17.3 RATIO (10-20); Bilirubin, Direct 0.14 mg/dL (0.00-0.30); Calcium,Total 8.5 mg/dL (8.5-10.1); Chloride 110 mmol/L (98-107); Cholesterol 151 mg/dL (200); Creatinine, Serum 1.85 mg/dL (0.70-1.30); EST Glomerular Filtration Rate 37 mL/min (>60); Est Glom Filt Rate - Afr Amer 45 mL/min (>60); Glucose 89 mg/dL (74-106); High Density Lipoprotein 46 mg/dL; Potassium 3.9 mmol/L (3.5-5.1); Protein, Total 6.6 g/dL (6.4-8.2); Sodium Level 141 mmol/L (136-145); Triglycerides 84 mg/dL; Very Low Density Lipoprotein 17 mg/dL (5-40)
[2020-12-05 10:59] LABS: Microalbumin,Random Urine 18.8 mg/L (NO RANGE EST.); Microalbumin:Creatinine Ratio 18.1 mg/g CRE (<30 mg/g CRE)
== END ==
PROVIDERS: PCP Family Medicine; Visit Provider Family Medicine
DX: E11.9 Type 2 diabetes mellitus without complications (principal)
CPT/HCPCS: 36415; 80048; 80061; 80076; 82043; 82570

== ENCOUNTER → 2021-05-09 11:16 | Outpatient (CLI) | payer MEDICARE, SELFPAY ==
[2021-05-09 12:09] LABS: Anion Gap 6 (5-15); BUN 27 mg/dL (7-18); BUN/Creat Ratio 15.7 RATIO (10-20); Calcium,Total 8.9 mg/dL (8.5-10.1); Chloride 107 mmol/L (98-107); Creatinine, Serum 1.72 mg/dL (0.70-1.30); EST Glomerular Filtration Rate 41 mL/min (>60); Est Glom Filt Rate - Afr Amer 49 mL/min (>60); Glucose 70 mg/dL (74-106); Potassium 4.2 mmol/L (3.5-5.1); Sodium Level 143 mmol/L (136-145)
[2021-05-09 12:17] LABS: BNP,B-Type NATRIURETIC PEPTIDE 222.4 pg/mL (0-100)
== END ==
PROVIDERS: PCP Family Medicine; Referring Provider Internal Medicine Cardiovascular Disease; Visit Provider Internal Medicine Cardiovascular Disease
DX: I25.2 Old myocardial infarction (principal)
CPT/HCPCS: 36415; 80048; 83880

== ENCOUNTER → 2021-06-01 09:42 | Outpatient (CLI) | payer MEDICARE, SELFPAY ==
[2021-06-01 10:50] LABS: Anion Gap 6 (5-15); BUN 40 mg/dL (7-18); BUN/Creat Ratio 20.8 RATIO (10-20); Calcium,Total 8.9 mg/dL (8.5-10.1); Chloride 106 mmol/L (98-107); Creatinine, Serum 1.92 mg/dL (0.70-1.30); EST Glomerular Filtration Rate 36 mL/min (>60); Est Glom Filt Rate - Afr Amer 43 mL/min (>60); Glucose 292 mg/dL (74-106); Potassium 3.9 mmol/L (3.5-5.1); Sodium Level 140 mmol/L (136-145)
== END ==
PROVIDERS: PCP Family Medicine; Visit Provider Internal Medicine Cardiovascular Disease
DX: R06.02 Shortness of breath (principal); I25.119 Atherosclerotic heart disease of native coronary artery with unspecified angina pectoris; I25.5 Ischemic cardiomyopathy; I48.0 Paroxysmal atrial fibrillation; I25.2 Old myocardial infarction; Z95.5 Presence of coronary angioplasty implant and graft
CPT/HCPCS: 36415; 80048

== ENCOUNTER → 2021-06-19 10:50 | Outpatient (CLI) | payer MEDICARE, SELFPAY ==
--- NOTE | 2021-06-19 10:54 | ECHOD_ITS ---
Version 3 Reason For Study: CAD Procedure This was a 2D Doppler, Color Flow transthoracic echocardiogram. Exam performed in department. Left Ventricle Normal LV size. Mid cavitary false tendon noted. The estimated ejection fraction is 45 %. [place] : Hypokinetic. Anterior [place] : Hypokinetic. Mid-Anterior : Hypokinetic. There are regional wall motion abnormalities as specified. Right Ventricle Normal RV size. Normal systolic function. Mitral Valve [place] diffuse mitral valve thickening. Mild (1+) eccentric mitral valve insufficiency. Tricuspid Valve Normal tricuspid valve. Mild tricuspid valve insufficiency. Pulmonary artery systolic pressure is 24 mmHg. Aortic Valve Trisinus/trileaflet aortic valve. Mild focal aortic valve calcification. Mild (1+) aortic valve insufficiency. Great Vessels Normal aortic root. The pulmonary artery is normal size. Normal inferior vena cava. Pericardium/Pleural No pericardial effusion. MMode/2D Measurements & Calculations LVIDd: 5.2 cm IVSd: 1.3 cm LVOT diam: 2.0 cm LVIDs: 3.4 cm LVPWd: 0.67 cm LVOT area: 3.1 cm2 RVDd: 3.6 cm FS: 34.5 % Ao root diam: 3.6 cm LAV(MOD-bp): 56.5 ml LVAd ap4: 44.9 cm2 LAV(MOD-bp) Indexed: 29.3 ml/m2 LVLd ap4: 9.2 cm LAV(MOD-sp2): 62.8 ml EDV(MOD-sp4): 174.2 ml LAV(MOD-sp4): 51.0 ml EDV(sp4-el): 185.8 ml LVAs ap4: 28.2 cm2 LVLs ap4: 7.8 cm ESV(MOD-sp4): 81.8 ml ESV(sp4-el): 86.6 ml EF(MOD-sp4): 53.0 % EF(sp4-el): 53.4 % SV(MOD-sp4): 92.4 ml SV(sp4-el): 99.2 ml LA A4 area: 17.7 cm2 LA dimension(2D): 4.5 cm RA A4 area: 16.8 cm2 Doppler Measurements & Calculations MV E max noah: 54.4 cm/sec Lat Peak E' Noah: 3.6 cm/sec Med Peak E' Noah: 3.4 cm/sec E/E' lat: 15.0 E/E' med: 16.2 Ao V2 max: 198.3 cm/sec AI max noah: 431.3 cm/sec LV V1 max: 97.3 cm/sec Ao max P.7 mmHg AI max P.4 mmHg LV V1 max P.8 mmHg Ao V2 mean: 139.9 cm/sec AI dec slope: 246.3 cm/sec2 LV V1 mean P.8 mmHg Ao mean P.6 mmHg AI P1/2t: 512.9 msec LV V1 mean: 62.5 cm/sec Ao V2 VTI: 45.2 cm LV V1 VTI: 21.5 cm ODESSA(I,D): 1.5 cm2 ODESSA(V,D): 1.5 cm2 SV(LVOT): 66.2 ml TR max noah: 224.4 cm/sec TR max P.1 mmHg ECHO/Echo Complete Interpretation Summary Normal LV size. [place] : Hypokinetic. Anterior [place] : Hypokinetic Mild (1+) aortic valve insufficiency. The estimated ejection fraction is 45 %. There are regional wall motion abnormalities as specified. Compared to previous study, the left ventricular systolic function is the same. . Ordering Physician: Jcarlos Bean Referring Physician: ALENA HIDALGO Performed By: Columba Perkins, KEO, RVT
== END ==
PROVIDERS: PCP Family Medicine; Referring Provider Internal Medicine Pulmonary Disease; Visit Provider Internal Medicine Pulmonary Disease
DX: G47.31 Primary central sleep apnea (principal); I25.10 Atherosclerotic heart disease of native coronary artery without angina pectoris; R09.02 Hypoxemia
CPT/HCPCS: 93306

== ENCOUNTER → 2021-06-29 09:43 | Outpatient (CLI) | payer MEDICARE, SELFPAY ==
[2021-06-29 10:59] LABS: Anion Gap 6 (5-15); BUN 38 mg/dL (7-18); BUN/Creat Ratio 19.8 RATIO (10-20); Calcium,Total 8.8 mg/dL (8.5-10.1); Chloride 106 mmol/L (98-107); Cholesterol 125 mg/dL (200); Creatinine, Serum 1.92 mg/dL (0.70-1.30); EST Glomerular Filtration Rate 36 mL/min (>60); Est Glom Filt Rate - Afr Amer 43 mL/min (>60); Glucose 247 mg/dL (74-106); High Density Lipoprotein 39 mg/dL; PSA,Total- Diagnostic 0.56 ng/mL (0.0-4.0); Potassium 3.4 mmol/L (3.5-5.1); Sodium Level 142 mmol/L (136-145); Triglycerides 96 mg/dL; Very Low Density Lipoprotein 19 mg/dL (5-40)
== END ==
PROVIDERS: PCP Family Medicine; Referring Provider Family Medicine; Visit Provider Family Medicine
DX: E11.9 Type 2 diabetes mellitus without complications (principal); R35.0 Frequency of micturition
CPT/HCPCS: 36415; 80048; 80061; 84153

== ENCOUNTER → 2021-11-30 | Outpatient (CLI) | payer MEDICARE, SELFPAY ==
[2021-11-30 11:31] LABS: Absolute Lymphocyte Count 0.51 X10^3/uL (0.83-4.51); Absolute Neutrophil Count 4.8 X10^3/uL (2.0-7.7); Basophil# 0.04 X10^3/uL; Basophil% 0.6 % (0-1); Eosinophil# 0.41 X10^3/uL; Eosinophils% 6.4 % (0-5); Hematocrit 39.4 % (40-54); Lymphocyte # 0.51 X10^3/ul (0.83-4.51); Lymphocyte % 7.9 % (19-41); Mean Corpuscular Hgb 31.2 pg (27.0-32.0); Mean Corpuscular Volume 94.5 fL (80-94); Mean Platelet Vol. 9.9 fl (6.2-12.0); Monocyte# 0.62 X10^3/uL; Monocyte% 9.6 % (0-10); NRBC Flagged by Analyzer 0 % (0-5); Neutrophil # 4.83 X10^3/uL (2.7-7.7); Neutrophil % 75.2 % (47-70); POSITIVE DIFFERENTIAL YES; Platelet Count 131 K/mm3 (150-450); RBC Distribution Width CV 14.3 % (11.6-14.6); RBC Distribution Width SD 49.2 fl (35.1-43.9); Red Blood Count 4.17 M/mm3 (4.6-6.2); White Blood Count 6.4 K/mm3 (4.4-11.0)
[2021-11-30 11:33] LABS: Differential Indicated SCAN CRITERIA MET
[2021-11-30 11:46] LABS: Hemoglobin A1c 6.6 % (3.8-5.6)
[2021-11-30 11:59] LABS: AST(SGOT) 16 U/L (15-37); Alanine Aminotransfer ALT/SGPT 24 U/L (16-61); Albumin, Serum 3.9 g/dL (3.2-5.0); Alkaline Phosphatase 73 U/L (45-117); Anion Gap 5 (5-15); BUN 37 mg/dL (7-18); Chloride 107 mmol/L (98-107); Cholesterol 133 mg/dL (200); Creatinine, Serum 1.76 mg/dL (0.70-1.30); EST Glomerular Filtration Rate 40 mL/min (>60); Est Glom Filt Rate - Afr Amer 48 mL/min (>60); Globulin 3.2 g/dL (2.2-4.2); Glucose 101 mg/dL (74-106); High Density Lipoprotein 40 mg/dL; Potassium 3.9 mmol/L (3.5-5.1); Protein, Total 7.1 g/dL (6.4-8.2); Sodium Level 141 mmol/L (136-145); Thyroid Stim Hormone (TSH) 2.11 uIU/mL (0.358-3.74); Triglycerides 77 mg/dL; Very Low Density Lipoprotein 15 mg/dL (5-40)
== END | disposition home or self-care (01) ==
PROVIDERS: PCP Family Medicine; Visit Provider Internal Medicine Cardiovascular Disease
DX: E10.69 Type 1 diabetes mellitus with other specified complication (principal)
CPT/HCPCS: 36415; 80048; 80061; 80076; 83036; 84443; 85025

== ENCOUNTER → 2022-05-01 | Outpatient (CLI) | payer MEDICARE, SELFPAY ==
--- NOTE | 2022-05-01 12:55 | ECHOD_ITS ---
Reason For Study: HYPOXEMIA Procedure This was a 2D Doppler, Color Flow transthoracic echocardiogram. Exam performed in department. Left Ventricle Normal left ventricle. Mid cavitary false tendon noted. Left ventricular systolic function is normal. The estimated ejection fraction is 55 %. [place] : Hypokinetic. Septal [place] : Hypokinetic. Right Ventricle Normal RV size. Normal systolic function. Atria Normal left atrium. Normal right atrium. Mitral Valve Normal mitral valve. Mild (1+) eccentric mitral valve insufficiency. Tricuspid Valve Normal tricuspid valve. Aortic Valve Trisinus/trileaflet aortic valve. Mild focal aortic valve thickening. Mild-Moderate (1-2+) aortic valve insufficiency. Pulmonic Valve Normal pulmonic valve. Great Vessels Normal aortic root. The pulmonary artery is normal size. Normal inferior vena cava. Pericardium/Pleural No pericardial effusion. MMode/2D Measurements & Calculations LVIDd: 5.3 cm IVSd: 1.2 cm LAV(MOD-bp): 57.7 ml LVIDs: 2.8 cm LVPWd: 1.1 cm LAV(MOD-bp) Indexed: 30.5 ml/m2 RVDd: 3.1 cm FS: 46.8 % LAV(MOD-sp2): 79.7 ml LAV(MOD-sp4): 42.7 ml SV(MOD-sp4): 62.9 ml SV(sp4-el): 66.4 ml LVAd ap4: 32.5 cm2 LVLd ap4: 8.4 cm EDV(MOD-sp4): 101.7 ml EDV(sp4-el): 106.1 ml LVAs ap4: 19.0 cm2 LVLs ap4: 7.7 cm ESV(MOD-sp4): 38.8 ml ESV(sp4-el): 39.7 ml EF(MOD-sp4): 61.8 % EF(sp4-el): 62.6 % LA A4 area: 16.9 cm2 LA dimension(2D): 4.5 cm RA A4 area: 24.1 cm2 Time Measurements MV dec time: 0.29 sec Doppler Measurements & Calculations MV E max noah: 55.3 cm/sec Lat Peak E' Noah: 7.6 cm/sec Med Peak E' Noah: 6.0 cm/sec MV A max noah: 64.1 cm/sec E/E' lat: 7.2 E/E' med: 9.2 MV E/A: 0.86 MV V2 max: 91.6 cm/sec MV dec slope: 193.5 cm/sec2 Ao V2 max: 187.4 cm/sec MV max P.4 mmHg Ao max P.3 mmHg MV V2 mean: 39.7 cm/sec Ao V2 mean: 123.7 cm/sec MV mean P.82 mmHg Ao mean P.3 mmHg MV V2 VTI: 25.2 cm Ao V2 VTI: 49.3 cm AI max noah: 428.9 cm/sec LV V1 max: 97.3 cm/sec TR max noah: 212.6 cm/sec AI max P.8 mmHg LV V1 max P.8 mmHg TR max P.1 mmHg LV V1 mean P.1 mmHg AI dec slope: 224.1 cm/sec2 LV V1 mean: 67.8 cm/sec AI P1/2t: 560.4 msec LV V1 VTI: 26.5 cm ECHO/Echo Complete Interpretation Summary Normal left ventricle. Mid cavitary false tendon noted. Left ventricular systolic function is normal. Mild (1+) eccentric mitral valve insufficiency. Mild-Moderate (1-2+) aortic valve insufficiency. The estimated ejection fraction is 55 %. [place] : Hypokinetic. Septal [place] : Hypokinetic Compared to previous study, the left ventricular systolic function has improved .. The global longitudinal strain is mildly abnormal. The global longitudinal strain = -15.2% (abnormal). Ordering Physician: Jcarlos Bean V Referring Physician: Jcarlos Bean V Performed By: Doris Molina RCS
== END | disposition home or self-care (01) ==
PROVIDERS: PCP Family Medicine; Referring Provider Internal Medicine Pulmonary Disease; Visit Provider Internal Medicine Pulmonary Disease
DX: R09.02 Hypoxemia (principal); I25.10 Atherosclerotic heart disease of native coronary artery without angina pectoris; G47.31 Primary central sleep apnea
CPT/HCPCS: 93306

== ENCOUNTER → 2022-06-07 | Outpatient (CLI) | payer MEDICARE, SELFPAY ==
[2022-06-07 09:44] LABS: BNP,B-Type NATRIURETIC PEPTIDE 76.6 pg/mL (0-100)
[2022-06-07 09:55] LABS: AST(SGOT) 19 U/L (15-37); Alanine Aminotransfer ALT/SGPT 25 U/L (16-61); Albumin, Serum 3.7 g/dL (3.2-5.0); Alkaline Phosphatase 66 U/L (45-117); Anion Gap 6 (5-15); BUN 43 mg/dL (7-18); BUN/Creat Ratio 20.7 RATIO (10-20); Bilirubin, Direct 0.23 mg/dL (0.00-0.30); Calcium,Total 8.9 mg/dL (8.5-10.1); Chloride 105 mmol/L (98-107); Cholesterol 152 mg/dL (200); Creatinine, Serum 2.08 mg/dL (0.70-1.30); EST Glomerular Filtration Rate 33 mL/min (>60); Est Glom Filt Rate - Afr Amer 39 mL/min (>60); Globulin 3.2 g/dL (2.2-4.2); Glucose 94 mg/dL (74-106); High Density Lipoprotein 44 mg/dL; PSA,Total - Annual Screen 1.22 ng/mL (0.00-4.00); Potassium 3.7 mmol/L (3.5-5.1); Protein, Total 6.9 g/dL (6.4-8.2); Sodium Level 142 mmol/L (136-145); Triglycerides 80 mg/dL; Very Low Density Lipoprotein 16 mg/dL (5-40)
== END | disposition home or self-care (01) ==
PROVIDERS: PCP Family Medicine; Referring Provider Internal Medicine Cardiovascular Disease; Visit Provider Internal Medicine Cardiovascular Disease
DX: R06.89 Other abnormalities of breathing (principal); E10.69 Type 1 diabetes mellitus with other specified complication; I25.119 Atherosclerotic heart disease of native coronary artery with unspecified angina pectoris; R06.00 Dyspnea, unspecified; G47.31 Primary central sleep apnea; E78.00 Pure hypercholesterolemia, unspecified; I10 Essential (primary) hypertension; Z12.5 Encounter for screening for malignant neoplasm of prostate
CPT/HCPCS: 80048; 80061; 80076; 83036; 83880; 84153; G0103

== ENCOUNTER → 2022-07-20 | Outpatient (CLI) | payer MEDICARE, SELFPAY ==
[2022-07-20 09:41] LABS: Anion Gap 4 (5-15); BUN 45 mg/dL (7-18); BUN/Creat Ratio 21.7 RATIO (10-20); Calcium,Total 8.5 mg/dL (8.5-10.1); Chloride 111 mmol/L (98-107); Creatinine, Serum 2.07 mg/dL (0.70-1.30); EST Glomerular Filtration Rate 33 mL/min (>60); Est Glom Filt Rate - Afr Amer 40 mL/min (>60); Glucose 82 mg/dL (74-106); Potassium 3.5 mmol/L (3.5-5.1); Sodium Level 144 mmol/L (136-145)
== END | disposition home or self-care (01) ==
LOC: LAB 08:08
PROVIDERS: PCP Family Medicine; Referring Provider Family Medicine; Visit Provider Family Medicine
DX: I50.9 Heart failure, unspecified (principal)
CPT/HCPCS: 36415; 80048

== ENCOUNTER → 2022-12-10 | Outpatient (CLI) | payer MEDICARE, SELFPAY ==
[2022-12-10 10:42] LABS: AST(SGOT) 13 U/L (15-37); Alanine Aminotransfer ALT/SGPT 22 U/L (16-61); Albumin, Serum 3.2 g/dL (3.2-5.0); Alkaline Phosphatase 75 U/L (45-117); Anion Gap 11 (5-15); BUN 31 mg/dL (7-18); BUN/Creat Ratio 19.6 RATIO (10-20); Calcium,Total 8.5 mg/dL (8.5-10.1); Chloride 110 mmol/L (98-107); Cholesterol 130 mg/dL (200); Creatinine, Serum 1.58 mg/dL (0.70-1.30); EST Glomerular Filtration Rate 45 mL/min (>60); Est Glom Filt Rate - Afr Amer 54 mL/min (>60); Globulin 3.2 g/dL (2.2-4.2); Glucose 105 mg/dL (74-106); High Density Lipoprotein 43 mg/dL; Potassium 3.9 mmol/L (3.5-5.1); Protein, Total 6.4 g/dL (6.4-8.2); Sodium Level 145 mmol/L (136-145); Triglycerides 49 mg/dL; Very Low Density Lipoprotein 10 mg/dL (5-40)
== END | disposition home or self-care (01) ==
LOC: MFPLAB 08:18
PROVIDERS: Physician Assistant Medical; PCP Family Medicine; Visit Provider Family Medicine
DX: E11.9 Type 2 diabetes mellitus without complications (principal)
CPT/HCPCS: 36415; 80048; 80061; 80076

== ENCOUNTER → 2023-06-06 | Outpatient (CLI) | payer MEDICARE, SELFPAY ==
[2023-06-06 12:34] LABS: Anion Gap 4 (5-15); BUN 32 mg/dL (7-18); BUN/Creat Ratio 16.2 RATIO (10-20); Calcium,Total 8.6 mg/dL (8.5-10.1); Chloride 110 mmol/L (98-107); Cholesterol 132 mg/dL (200); Creatinine, Serum 1.98 mg/dL (0.70-1.30); EST Glomerular Filtration Rate 34 mL/min (>60); Est Glom Filt Rate - Afr Amer 42 mL/min (>60); Glucose 108 mg/dL (74-106); High Density Lipoprotein 44 mg/dL; Potassium 4.1 mmol/L (3.5-5.1); Sodium Level 142 mmol/L (136-145); Triglycerides 97 mg/dL; Very Low Density Lipoprotein 19 mg/dL (5-40)
[2023-06-06 12:52] LABS: Microalbumin,Random Urine 41.6 mg/L (NO RANGE EST.); Microalbumin:Creatinine Ratio 30.4 mg/g CRE (<30 mg/g CRE)
[2023-06-06 13:01] LABS: Hemoglobin A1c 5.5 % (3.8-5.6)
== END | disposition home or self-care (01) ==
PROVIDERS: PCP Family Medicine; Visit Provider Family Medicine
DX: E11.9 Type 2 diabetes mellitus without complications (principal)
CPT/HCPCS: 36415; 80048; 80061; 82043; 82570; 83036

== ENCOUNTER → 2023-10-18 | Outpatient (CLI) | payer MEDICARE, SELFPAY ==
--- NOTE | 2023-10-18 11:00 | ECHOD_ITS ---
Reason For Study: CAD/ASHD Procedure This was a 2D Doppler, Color Flow transthoracic echocardiogram. Myocardial strain analysis was performed in this exam to aid in the assessment of cardiac function. Exam performed in department. Left Ventricle Mildly dilated left ventricle. Mild concentric left ventricular hypertrophy. The estimated ejection fraction is 53 %. Mild segmental systolic dysfunction (see wall motion). [place] : Hypokinetic. Septal [place] : Akinetic. The rest of the wall segments are normal. Right Ventricle Normal RV size. Normal systolic function. Atria Normal left atrium. Normal right atrium. Mitral Valve Normal mitral valve. Mild (1+) mitral valve insufficiency. Tricuspid Valve Normal tricuspid valve. Mild (1+) tricuspid valve insufficiency. Pulmonary artery systolic pressure is 26 mmHg. Aortic Valve Trisinus/trileaflet aortic valve. Mild focal aortic valve calcification. Mild (1+) aortic valve insufficiency. Pulmonic Valve Normal pulmonic valve. Mild (1+) pulmonic valve insufficiency. Great Vessels Calcified aortic root. The pulmonary artery is normal size. Inferior vena cava collapse with respiration. Pericardium/Pleural No pericardial effusion. MMode/2D Measurements & Calculations LVIDd: 6.1 cm IVSd: 1.3 cm LVOT diam: 2.1 cm LVIDs: 4.3 cm LVPWd: 1.3 cm LVOT area: 3.3 cm2 RVDd: 4.0 cm FS: 29.3 % Ao root diam: 2.7 cm LAV(MOD-bp): 75.1 ml LVAd ap4: 39.3 cm2 LAV(MOD-bp) Indexed: 39.5 ml/m2 LVLd ap4: 8.9 cm LAV(MOD-sp2): 82.4 ml EDV(MOD-sp4): 141.2 ml LAV(MOD-sp4): 60.9 ml EDV(sp4-el): 147.1 ml LVAs ap4: 25.3 cm2 LVLs ap4: 7.9 cm ESV(MOD-sp4): 66.8 ml ESV(sp4-el): 68.6 ml EF(MOD-sp4): 52.7 % EF(sp4-el): 53.3 % SV(MOD-sp4): 74.4 ml SV(sp4-el): 78.4 ml LA A4 area: 19.8 cm2 LA dimension(2D): 5.1 cm RA A4 area: 16.0 cm2 TAPSE: 2.0 cm Time Measurements MV dec time: 0.18 sec Doppler Measurements & Calculations MV E max noah: 54.9 cm/sec Lat Peak E' Noah: 5.2 cm/sec Med Peak E' Noah: 5.6 cm/sec MV A max noah: 73.1 cm/sec E/E' lat: 10.5 E/E' med: 9.8 MV E/A: 0.75 Ao V2 max: 222.4 cm/sec AI max noah: 401.9 cm/sec MV dec slope: 303.3 cm/sec2 Ao max P.8 mmHg AI max P.6 mmHg Ao V2 mean: 165.0 cm/sec Ao mean P.0 mmHg AI dec slope: 209.8 cm/sec2 Ao V2 VTI: 59.2 cm AI P1/2t: 560.9 msec AV (velocity ratio): 0.47 ODESSA(I,D): 1.6 cm2 ODESSA(V,D): 1.5 cm2 LV V1 max: 101.1 cm/sec SV(LVOT): 91.8 ml PA V2 max: 86.1 cm/sec LV V1 max P.1 mmHg LV V1 mean P.7 mmHg LV V1 mean: 79.4 cm/sec LV V1 VTI: 27.6 cm TR max noah: 241.1 cm/sec TR max P.3 mmHg ECHO/Echo Complete Interpretation Summary Mildly dilated left ventricle. Mild (1+) mitral valve insufficiency. Mild (1+) tricuspid valve insufficiency. Mild (1+) aortic valve insufficiency. The estimated ejection fraction is 53 %. Mild segmental systolic dysfunction (see wall motion). The global longitudinal strain = -13.2% (abnormal). Compared to previous study, the left ventricular systolic function is the same.. Ordering Physician: Mikhail Siu Referring Physician: Vladimir Healy Performed By: Roof, Ofelia, RDCS, RVT
== END | disposition home or self-care (01) ==
PROVIDERS: PCP Family Medicine; Referring Provider Internal Medicine Cardiovascular Disease; Visit Provider Internal Medicine Cardiovascular Disease
DX: I49.3 Ventricular premature depolarization (principal); I25.10 Atherosclerotic heart disease of native coronary artery without angina pectoris
CPT/HCPCS: 93306

== ENCOUNTER → 2023-12-20 | Outpatient (CLI) | payer MEDICARE, SELFPAY ==
--- NOTE | 2023-12-20 11:34 | RAD_ITS ---
EXAM: XR BILATERAL HIPS WITH PELVIS WHEN PERFORMED, 2 VIEWS CLINICAL INDICATION: ARTHRITIS TECHNIQUE: Frontal view of the bilateral hips with pelvis when performed. COMPARISON: No relevant prior studies available. FINDINGS: BONES/JOINTS: No acute abnormality. Prominent disc degeneration noted at L4-5 and L5-S1. SOFT TISSUES: Normal. No soft tissue swelling or gas. RAD/Hips B/L min 2 views w/ Pelvis IMPRESSION: No acute or significant chronic abnormality of the pelvis and hips. Electronically Signed: Zak Sabillon MD at 11:59 EDT ,
[2023-12-20 16:16] LABS: Anion Gap 6 (5-15); BUN 29 mg/dL (7-18); BUN/Creat Ratio 18.1 RATIO (10-20); Calcium,Total 8.7 mg/dL (8.5-10.1); Chloride 109 mmol/L (98-107); Cholesterol 127 mg/dL (200); EST Glomerular Filtration Rate 44 mL/min (>60); Est Glom Filt Rate - Afr Amer 53 mL/min (>60); Glucose 76 mg/dL (74-106); High Density Lipoprotein 45 mg/dL; PSA,Total - Annual Screen 0.63 ng/mL (0.00-4.00); Potassium 4.3 mmol/L (3.5-5.1); Sodium Level 139 mmol/L (136-145); Triglycerides 98 mg/dL; Very Low Density Lipoprotein 20 mg/dL (5-40)
== END | disposition home or self-care (01) ==
LOC: MTLAB 11:32
PROVIDERS: PCP Family Medicine; Referring Provider Family Medicine; Visit Provider Family Medicine
DX: Z12.5 Encounter for screening for malignant neoplasm of prostate (principal); E78.5 Hyperlipidemia, unspecified; M19.90 Unspecified osteoarthritis, unspecified site
CPT/HCPCS: 36415; 73521; 80048; 80061; 84153; G0103

== ENCOUNTER → 2024-06-04 | Outpatient (CLI) | payer MEDICARE, SELFPAY ==
[2024-06-04 12:57] LABS: Absolute Lymphocyte Count 0.47 X10^3/uL (0.83-4.51); Absolute Neutrophil Count 3.3 X10^3/uL (2.0-7.7); Basophil# 0.01 X10^3/uL; Basophil% 0.2 % (0-1); Eosinophil# 0.29 X10^3/uL; Eosinophils% 6.4 % (0-5); Hematocrit 36.7 % (40-54); Hemoglobin 12.5 g/dL (13.0-16.5); Lymphocyte # 0.47 X10^3/ul (0.83-4.51); Lymphocyte % 10.3 % (19-41); Mean Corp Hgb Conc 34.1 g/dL (32-36); Mean Corpuscular Hgb 32.5 pg (27.0-32.0); Mean Corpuscular Volume 95.3 fL (80-94); Monocyte# 0.53 X10^3/uL; Monocyte% 11.6 % (0-10); NRBC Flagged by Analyzer 0 % (0-5); Neutrophil # 3.25 X10^3/uL (2.7-7.7); Neutrophil % 71.3 % (47-70); POSITIVE DIFFERENTIAL YES; Platelet Count 105 K/mm3 (150-450); RBC Distribution Width CV 13.4 % (11.6-14.6); RBC Distribution Width SD 47.1 fl (35.1-43.9); Red Blood Count 3.85 M/mm3 (4.6-6.2); White Blood Count 4.6 K/mm3 (4.4-11.0)
[2024-06-04 13:32] LABS: BNP,B-Type NATRIURETIC PEPTIDE 251.5 pg/mL (0-100)
[2024-06-04 13:34] LABS: Anion Gap 3 (5-15); BUN 42 mg/dL (7-18); BUN/Creat Ratio 20.4 RATIO (10-20); Calcium,Total 8.8 mg/dL (8.5-10.1); Chloride 113 mmol/L (98-107); Creatinine, Serum 2.06 mg/dL (0.70-1.30); EST Glomerular Filtration Rate 33 mL/min (>60); Est Glom Filt Rate - Afr Amer 40 mL/min (>60); Glucose 79 mg/dL (74-106); Potassium 4.6 mmol/L (3.5-5.1); Sodium Level 142 mmol/L (136-145)
== END | disposition home or self-care (01) ==
LOC: LAB 12:44
PROVIDERS: PCP Family Medicine; Referring Provider Nurse Practitioner Family; Visit Provider Nurse Practitioner Family
DX: R06.09 Other forms of dyspnea (principal); I35.9 Nonrheumatic aortic valve disorder, unspecified; I25.5 Ischemic cardiomyopathy
CPT/HCPCS: 36415; 80048; 83880; 85025

== ENCOUNTER → 2024-06-29 | Outpatient (CLI) | payer MEDICARE, SELFPAY ==
--- NOTE | 2024-06-29 15:05 | ECHOD_ITS ---
Reason For Study: WORSENING SOB Procedure This was a 2D Doppler, Color Flow transthoracic echocardiogram. Exam performed in department. Left Ventricle Normal LV size. Moderate concentric left ventricular hypertrophy. The left ventricular ejection fraction is 55 %. Segmental dysfunction with preserved ejection fraction (see wall motion). [place] : Akinetic. Anterior [place] : Hypokinetic. Septal [place] : Akinetic. The rest of the wall segments are normal. Right Ventricle Normal RV size. Normal systolic function. Atria Normal left atrium. Normal right atrium. Mitral Valve There is mild mitral annular calcification. Mild (1+) eccentric mitral valve insufficiency. Tricuspid Valve Normal tricuspid valve. Mild tricuspid valve insufficiency. Aortic Valve Trisinus/trileaflet aortic valve. Mild focal aortic valve calcification. Trivial eccentric aortic valve insufficiency. Pulmonic Valve Normal pulmonic valve. Great Vessels Calcified aortic root. The pulmonary artery is normal size. Inferior vena cava collapse with respiration. Pericardium/Pleural No pericardial effusion. MMode/2D Measurements & Calculations LVIDd: 6.1 cm IVSd: 1.5 cm LVOT diam: 2.0 cm LVIDs: 3.9 cm LVPWd: 1.3 cm LVOT area: 3.0 cm2 RVDd: 3.5 cm FS: 35.6 % LAV(MOD-bp): 65.9 ml LVAd ap4: 38.7 cm2 SV(MOD-sp4): 80.9 ml LAV(MOD-bp) Indexed: 34.5 ml/m2 LVLd ap4: 9.1 cm SI(MOD-sp4): 42.3 ml/m2 LAV(MOD-sp2): 71.8 ml EDV(MOD-sp4): 132.5 ml LAV(MOD-sp4): 55.2 ml EDV(sp4-el): 139.9 ml LVAs ap4: 23.0 cm2 LVLs ap4: 8.3 cm ESV(MOD-sp4): 51.6 ml ESV(sp4-el): 54.1 ml EF(MOD-sp4): 61.1 % EF(sp4-el): 61.3 % SV(sp4-el): 85.7 ml LA A4 area: 18.6 cm2 LA dimension(2D): 3.2 cm RA A4 area: 12.4 cm2 Time Measurements MV dec time: 0.22 sec Doppler Measurements & Calculations MV E max noah: 38.8 cm/sec Lat Peak E' Noah: 7.6 cm/sec Med Peak E' Noah: 4.8 cm/sec MV A max noah: 85.8 cm/sec E/E' lat: 5.1 E/E' med: 8.1 MV E/A: 0.45 MV V2 max: 94.3 cm/sec Ao V2 max: 233.9 cm/sec MV max P.6 mmHg MV dec slope: 178.3 cm/sec2 Ao max P.9 mmHg MV V2 mean: 39.9 cm/sec Ao V2 mean: 166.6 cm/sec MV mean P.87 mmHg Ao mean P.6 mmHg MV V2 VTI: 26.4 cm Ao V2 VTI: 58.8 cm AV (velocity ratio): 0.49 MVA(VTI): 3.3 cm2 ODESSA(I,D): 1.5 cm2 ODESSA(V,D): 1.5 cm2 AI max noah: 447.4 cm/sec LV V1 max: 115.0 cm/sec SV(LVOT): 87.8 ml AI max P.1 mmHg LV V1 max P.3 mmHg LV V1 mean P.8 mmHg AI dec slope: 200.0 cm/sec2 LV V1 mean: 77.9 cm/sec AI P1/2t: 655.1 msec LV V1 VTI: 29.0 cm PA V2 max: 94.3 cm/sec PA V2 mean: 54.6 cm/sec ECHO/Echo Complete Interpretation Summary The left ventricular ejection fraction is 55 %. Normal LV size. Moderate concentric left ventricular hypertrophy. Segmental dysfunction with preserved ejection fraction (see wall motion). Compared to previous study, the left ventricular systolic function is the same. . Ordering Physician: Tawanda Jang Referring Physician: Tawanda Jang Performed By: Doris Molina RCS
== END | disposition home or self-care (01) ==
LOC: CVS 15:05
PROVIDERS: PCP Family Medicine; Referring Provider Nurse Practitioner Family; Visit Provider Nurse Practitioner Family
DX: R06.00 Dyspnea, unspecified (principal); I35.9 Nonrheumatic aortic valve disorder, unspecified; I25.5 Ischemic cardiomyopathy
CPT/HCPCS: 93306

== ENCOUNTER → 2024-07-06 | Outpatient (CLI) | payer MEDICARE, SELFPAY ==
[2024-07-06 13:02] LABS: ALB/GLOB Ratio 1.1 RATIO (0.9-2.4); AST(SGOT) 14 U/L (15-37); Alanine Aminotransfer ALT/SGPT 20 U/L (16-61); Albumin, Serum 3.5 g/dL (3.2-5.0); Alkaline Phosphatase 61 U/L (45-117); Anion Gap 6 (5-15); BUN 31 mg/dL (7-18); Chloride 111 mmol/L (98-107); Cholesterol 132 mg/dL (200); Creatinine, Serum 1.94 mg/dL (0.70-1.30); EST Glomerular Filtration Rate 35 mL/min (>60); Est Glom Filt Rate - Afr Amer 42 mL/min (>60); Globulin 3.1 g/dL (2.2-4.2); Glucose 73 mg/dL (74-106); High Density Lipoprotein 49 mg/dL; Potassium 4.2 mmol/L (3.5-5.1); Protein, Total 6.6 g/dL (6.4-8.2); Sodium Level 141 mmol/L (136-145); Triglycerides 92 mg/dL; Very Low Density Lipoprotein 18 mg/dL (5-40)
[2024-07-06 13:17] LABS: Hemoglobin A1c 5.9 % (3.8-5.6)
== END | disposition home or self-care (01) ==
LOC: MFPLAB 10:46
PROVIDERS: PCP Family Medicine; Referring Provider Family Medicine; Visit Provider Family Medicine
DX: E11.9 Type 2 diabetes mellitus without complications (principal)
CPT/HCPCS: 36415; 80053; 80061; 83036

== ENCOUNTER 2024-09-04 13:30 | Outpatient (RCR) | payer MEDICARE, SELFPAY ==
--- NOTE | 2024-04-03 14:14 | HP.PTEVAL ---
Patient's Visit Information Visit Information Visit Information: NICOLE OCAMPO is a 83 year old M referred to Physical Therapy by Dr. Vladimir Healy MD with a diagnosis of BACK PAIN. Date of Evaluation: 04/03/24 Physical Therapist: Yevgeniy Otoole, PT, Cert MDT, OCS Visit Plan Frequency: 2x /Week Duration: 4 Weeks Plan: PT INTERVENTIONS LUMBAR ROM FLEXION ,DLS ,POSTURAL EX'S ,LE FLEXABILITY AND MODALITIES Subjective Subjective: This 83 y/o male presents to physical therapy with back pain.Patient developed lumbar pain and lateral hip in October. Symptoms started working with bees and on feet .Seen Dr in November prescribed meloxicam and x-rays DDD on November . Eventually recommended PT. Location tingles and needle feeling . Aggravating factors standing/walking ,lifting . Alleviating rest and sitting . Symptoms have been lasting longer. Affects sleeping pattern .Coughing/sneezing- Bowel/bladder -. Patient has no h/o trauma except had body cast when child. Patient lives alone . Patient cook Independent. Patient condition affects QOL and function. Patient goals ton decrease pain. 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 Pain Right Lower Extremity: Pain Intensity (Out of 10): 4 Pain Intensity Range: 4 Objective Objective: POSTURE: mild forward posture GAIT: ambulates with reciprocal pattern NEURO: denies paresthesia/tingling ,reflexes L3-4,L4-5,L5-S1 1/3 FLEXABILITY: hamstrings min tight LUMBAR ROM: flexion min/mod loss .extension mod /severe loss pain ,side glides min loss pain right side MMT: quads/hams 4/5 ,hip flexion 4/5 ,ankle 4/5 Special Tests L/S Slump test left side: Negative L/S Slump test right side: Negative L/S Left Straight Leg Raise: Negative L/S Right Straight Leg Raise: Negative Lumbar Standing: Flexion - Mechanical Response: No effect Lumbar Standing: Flexion - Symptoms During Testing: No effect Lumbar Standing: Flexion - Symptoms After Testing: No effect Lumbar Standing: Extension - Mechanical Response: No effect Lumbar Standing: Extension - Symptoms During Testing: Increases Lumbar Standing: Extension - Symptoms After Testing: No effect Lumbar Standing: Right Side Glides - Mechanical Response: No effect Lumbar Standing: Right Side [place] - Symptoms During Testing: Increases Lumbar Standing: Right Side [place] - Symptoms After Testing: No better Lumbar Standing: Left Side [place] - Mechanical Response: No effect Lumbar Standing: Left Side [place] - Symptoms During Testing: No effect Lumbar Standing: Left Side [place] - Symptoms After Testing: No effect Lumbar Lying: Flexion - Mechanical Response: No effect Lumbar Lying: Flexion - Symptoms During Testing: Decreases Lumbar Lying: Flexion - Symptoms After Testing: Better Balance/Special Test Scores Oswestry Low Back Score: 16 Goals Goal 1:: Patient to be I with HEP Goal Time Frame: 4-6 Weeks Goal 2:: Patient to demonstrate 50% improvement with less pain and improved walking Goal Time Frame: 4-6 Weeks Goal 3:: Patient be able to walk and stand with less symptoms in legs Goal Time Frame: 4-6 Weeks Goal 4:: Patient to improve lumbar ROM for function for ADLS and housework Goal Time Frame: 4-6 Weeks Goal 5:: Patient to improve back oswestry score by 5 points to improve QOL Goal Time Frame: 4-6 Weeks Rehabilitation Potential Physical Therapy Diagnosis: This patient has possible stenosis with symptoms worse with positioning and motion testing worse with standing/walking better with sitting and flexion thus benefit from skilled PT Rehabilitation Potential: Good Anticipated Interventions Patient/Client Instruction: Educate patient on: Condition and Plan of Care For the Purpose of:: To decrease pain, To increase ROM, To improve muscle performance and motor function, To increase tolerance to activity/condition/position, To improve ability of physical actions for home/community/work/leisure, To improve health of tissue, To decrease soft tissue restriction, To increase flexibility/ROM, To assume or resume ADL's and To improve tolerance to ADL's Therapeutic Exercise to Include: Postural training, Flexibilty training and Dynamic Lumbar Stabilization For the Purpose of:: To decrease pain, To increase ROM, To improve muscle performance and motor function, To increase tolerance to activity/condition/position, To improve ability of physical actions for home/community/work/leisure, To improve health of tissue, To decrease soft tissue restriction, To increase flexibility/ROM, To reduce risk of recurrence and To improve tolerance to ADL's TENS: Yes IF ES: Yes Cryotherapy (ice pack, ice massage): Yes Thermo therapy (hot pack): Yes Ultrasound (thermal/non thermal): Yes For the Purpose of:: To decrease pain, To improve nutrient delivery to tissue, To increase oxygenation perfusion, To improve health of tissue and To decrease soft tissue restriction Text: Thank you for the opportunity to evaluate your patient. For Medicare and Medicare HMO plans, please review the plan of care and approve it. It will need to be FAXED BACK to us at [phone] for Medicare purposes. For Medicare only, by signing this I certify the plan of care. Please let me know if there are questions or concerns regarding this plan of care. Physician Signature: Date:
--- NOTE | 2024-06-05 10:00 | HP.PTREVAL ---
Re-Evaluation Intro: Dr. Vladimir Healy MD, It has been my pleasure to treat NICOLE OCAMPO over the last 9 visits for BACK PAIN. Please see the progress note below for an update on the physical therapy plan of care! Subjective Subjective: [place] on [place] daily .Pain is less with activity , more stiffness in morning Objective Objective/Function: * Patient will cont to benefit from skilled PT with goals are appropriate and updated with patient progressing with less pain* POSTURE: mild forward posture GAIT: ambulates with reciprocal pattern NEURO: denies paresthesia/tingling ,reflexes L3-4,L4-5,L5-S1 1/3 FLEXABILITY: hamstrings min tight LUMBAR ROM: flexion min/mod loss .extension mod pain ,side glides min loss MMT: quads/hams 4/5 ,hip flexion 4/5 ,ankle 4/5 Plan Plan Plan: PT INTERVENTIONS LUMBAR ROM FLEXION ,DLS ,POSTURAL EX'S ,LE FLEXABILITY AND MODALITIES Balance/Gait/Functional tests Balance/Special Test Scores Oswestry Low Back Score: 15 Goals Goals Goal 1:: Patient to be I with HEP Goal Time Frame: 4-6 Weeks Goal Progress: Progressing Goal 2:: Patient to demonstrate 60% improvement with less pain and improved walking( new goal) Goal Time Frame: 4-6 Weeks Goal 3:: Patient be able to walk and stand with less symptoms in legs Goal Time Frame: 4-6 Weeks Goal Progress: Progressing Goal 4:: Patient to improve lumbar ROM for function for ADLS and housework Goal Time Frame: 4-6 Weeks Goal Progress: Progressing Goal 5:: Patient to improve back oswestry score by 5 points to improve QOL Goal Time Frame: 4-6 Weeks Goal Progress: Progressing Anticipated Interventions Anticipated Interventions Patient/Client Instruction: Educate patient on: Condition and Plan of Care For the Purpose of:: To decrease pain, To increase ROM, To improve muscle performance and motor function, To increase tolerance to activity/condition/position, To improve ability of physical actions for home/community/work/leisure, To improve health of tissue, To decrease soft tissue restriction, To increase flexibility/ROM, To assume or resume ADL's and To improve tolerance to ADL's Therapeutic Exercise to Include: Postural training, Flexibilty training and Dynamic Lumbar Stabilization For the Purpose of:: To decrease pain, To increase ROM, To improve muscle performance and motor function, To increase tolerance to activity/condition/position, To improve ability of physical actions for home/community/work/leisure, To improve health of tissue, To decrease soft tissue restriction, To increase flexibility/ROM, To reduce risk of recurrence and To improve tolerance to ADL's TENS: Yes IF ES: Yes Cryotherapy (ice pack, ice massage): Yes Thermo therapy (hot pack): Yes Ultrasound (thermal/non thermal): Yes For the Purpose of:: To decrease pain, To improve nutrient delivery to tissue, To increase oxygenation perfusion, To improve health of tissue and To decrease soft tissue restriction Re-Evaluation Ending Re-evaluation ending: Please do not hesitate to contact me at [phone] by phone or if you have questions or concerns regarding this new plan of care! Sincerely, Yevgeniy Otoole, PT, Cert MDT, OCS
--- NOTE | 2024-07-09 10:55 | HP.PTREVAL ---
Re-Evaluation Intro: Dr. Vladimir Healy MD, It has been my pleasure to treat NICOLE OCAMPO over the last 17 visits for BACK PAIN. Please see the progress note below for an update on the physical therapy plan of care! Subjective Subjective: Patient PT is helping with less pain ,able to lift better Objective Objective/Function: * Patient will cont to benefit from skilled PT with goals are appropriate and updated with patient progressing with less pain for function and lifting * POSTURE: mild forward posture GAIT: ambulates with reciprocal pattern NEURO: denies paresthesia/tingling ,reflexes L3-4,L4-5,L5-S1 1/3 FLEXABILITY: hamstrings min tight LUMBAR ROM: flexion WFLK .extension mod ,side glides min loss MMT: quads/hams 4/5 ,hip flexion 4/5 ,ankle 4/5 Plan Plan Plan: PT INTERVENTIONS LUMBAR ROM FLEXION ,DLS ,POSTURAL EX'S ,LE FLEXABILITY AND MODALITIES Balance/Gait/Functional tests Balance/Special Test Scores Oswestry Low Back Score: 14 Goals Goals Goal 1:: Patient to be I with HEP Goal Time Frame: 4-6 Weeks Goal Progress: Progressing Goal 2:: Patient to demonstrate 60% improvement with less pain and improved walking( new goal) Goal Time Frame: 4-6 Weeks Goal Progress: Progressing Goal 3:: Patient be able to walk and stand with less symptoms in legs Goal Time Frame: 4-6 Weeks Goal Progress: Progressing Goal 4:: Patient to improve lumbar ROM for function for ADLS and housework Goal Time Frame: 4-6 Weeks Goal Progress: Progressing Goal 5:: Patient to improve back oswestry score by 5 points to improve QOL Goal Time Frame: 4-6 Weeks Goal Progress: Progressing Anticipated Interventions Anticipated Interventions Patient/Client Instruction: Educate patient on: Condition and Plan of Care For the Purpose of:: To decrease pain, To increase ROM, To improve muscle performance and motor function, To increase tolerance to activity/condition/position, To improve ability of physical actions for home/community/work/leisure, To improve health of tissue, To decrease soft tissue restriction, To increase flexibility/ROM, To assume or resume ADL's and To improve tolerance to ADL's Therapeutic Exercise to Include: Postural training, Flexibilty training and Dynamic Lumbar Stabilization For the Purpose of:: To decrease pain, To increase ROM, To improve muscle performance and motor function, To increase tolerance to activity/condition/position, To improve ability of physical actions for home/community/work/leisure, To improve health of tissue, To decrease soft tissue restriction, To increase flexibility/ROM, To reduce risk of recurrence and To improve tolerance to ADL's TENS: Yes IF ES: Yes Cryotherapy (ice pack, ice massage): Yes Thermo therapy (hot pack): Yes Ultrasound (thermal/non thermal): Yes For the Purpose of:: To decrease pain, To improve nutrient delivery to tissue, To increase oxygenation perfusion, To improve health of tissue and To decrease soft tissue restriction Re-Evaluation Ending Re-evaluation ending: Please do not hesitate to contact me at [phone] by phone or if you have questions or concerns regarding this new plan of care! Sincerely, Yevgeniy Otoole, PT, Cert MDT, OCS
--- NOTE | 2024-09-04 14:08 | HP.PTDCSUM ---
Discharge Summary D/C summary: It has been my pleasure to treat NICOLE OCAMPO referred by Dr. Vladimir Healy MD, with the diagnosis of BACK PAIN for a total of 25 visit(s). Discharge Date: 09/04/24 Please see the following information for a summary of their discharge status. Subjective Subjective: Pain comes and goes ,I could start a gym program to cont on my own Pain Right Lower Extremity: Pain Intensity (Out of 10): 3 Overall Improvement % Improvement: 75 Objective Objective/Function: POSTURE: mild forward posture GAIT: ambulates with reciprocal pattern NEURO: denies paresthesia/tingling ,reflexes L3-4,L4-5,L5-S1 1/3 FLEXABILITY: hamstrings min tight LUMBAR ROM: flexion WFLK .extension mod ,side glides min loss MMT: quads/hams 4/5 ,hip flexion 4/5 ,ankle 4/5 Goals Goal 1:: Patient to be I with HEP Goal Progress: Goal Met Goal 2:: Patient to demonstrate 60% improvement with less pain and improved walking( new goal) Goal Progress: Goal Met Goal 3:: Patient be able to walk and stand with less symptoms in legs Goal Progress: Goal Met Goal 4:: Patient to improve lumbar ROM for function for ADLS and housework Goal Progress: Goal Met Goal 5:: Patient to improve back oswestry score by 5 points to improve QOL Goal Progress: Goal Met Plan Plan: D.C D/C Information Discharge Comments: HEP AND PROVIDED A GYM PROGRAM d/c sentence: If there are questions or concerns regarding this patient's physical therapy, please feel free to call me at [phone]. Thank you for the referral of this patient. Sincerely, Yevgeniy Otoole, PT, Cert MDT, OCS Balance/Gait/Functional tests Balance/Special Test Scores Oswestry Low Back Score: 5 Improvement % Improvement: 75
== END 2024-09-04 19:00 | disposition home or self-care (01) ==
LOC: PT 13:30
PROVIDERS: PCP Family Medicine; Referring Provider Family Medicine; Visit Provider Family Medicine
DX: M54.9 Dorsalgia, unspecified (principal)
CPT/HCPCS: 97110; 97162; 97530

== ENCOUNTER → 2024-09-16 | Outpatient (CLI) | payer MEDICARE, SELFPAY ==
[2024-09-16 16:07] LABS: Anion Gap 11 (5-15); BUN 30 mg/dL (4-19); BUN/Creat Ratio 17.7 RATIO (10-20); Calcium 8.9 mg/dL (7.6-11.0); Carbon Dioxide 24.2 mmol/L (22.0-29.0); Chloride 108 mmol/L (96-108); Creatinine, Serum 1.7 mg/dL (0.8-1.3); EST Glomerular Filtration Rate 38 (>60); Glucose 88 mg/dL (70-99); Potassium 4.1 mmol/L (3.3-5.1); Sodium Level 143 mmol/L (133-145)
== END | disposition home or self-care (01) ==
LOC: MFPLAB 11:28
PROVIDERS: PCP Family Medicine; Referring Provider Family Medicine; Visit Provider Family Medicine
DX: N19 Unspecified kidney failure (principal)
CPT/HCPCS: 36415; 80048

== ENCOUNTER → 2024-10-20 | Outpatient (CLI) | payer MEDICARE, SELFPAY | END | disposition home or self-care (01) | LOC: PSN 09:23 | PROVIDERS: PCP Family Medicine; Referring Provider Nurse Practitioner Family; Visit Provider Nurse Practitioner Family | DX: J45.909 Unspecified asthma, uncomplicated (principal) | CPT/HCPCS: 94060; 94726; 94729 ==

== ENCOUNTER → 2024-10-27 | Outpatient (CLI) | payer MEDICARE, SELFPAY ==
[2024-10-27 11:25] LABS: Absolute Neutrophil Count 4.3 X10^3/uL (2.0-7.7); Basophil# 0.02 X10^3/uL; Basophil% 0.3 % (0-1); Eosinophil# 0.25 X10^3/uL; Eosinophils% 4.4 % (0-5); Hematocrit 39.9 % (40-54); Hemoglobin 13.3 g/dL (13.0-16.5); Lymphocyte % 8.7 % (19-41); Mean Corp Hgb Conc 33.3 g/dL (32-36); Mean Corpuscular Hgb 31.1 pg (27.0-32.0); Mean Corpuscular Volume 93.4 fL (80-94); Monocyte# 0.62 X10^3/uL; Monocyte% 10.8 % (0-10); NRBC Flagged by Analyzer 0 % (0-5); Neutrophil # 4.32 X10^3/uL (2.7-7.7); Neutrophil % 75.6 % (47-70); POSITIVE DIFFERENTIAL YES; Platelet Count 114 K/mm3 (150-450); RBC Distribution Width CV 14.1 % (11.6-14.6); RBC Distribution Width SD 48.5 fl (35.1-43.9); Red Blood Count 4.27 M/mm3 (4.6-6.2); White Blood Count 5.7 K/mm3 (4.4-11.0)
== END | disposition home or self-care (01) ==
PROVIDERS: PCP Family Medicine; Referring Provider Nurse Practitioner Family; Visit Provider Nurse Practitioner Family
DX: R06.00 Dyspnea, unspecified (principal); Z86.2 Personal history of diseases of the blood and blood-forming organs and certain disorders involving the immune mechanism
CPT/HCPCS: 36415; 85025

== ENCOUNTER → 2024-12-17 | Outpatient (CLI) | payer MEDICARE, SELFPAY ==
[2024-12-17 13:33] LABS: Anion Gap 10 (5-15); BUN 28 mg/dL (4-19); BUN/Creat Ratio 16.8 RATIO (10-20); Calcium,Total 9.3 mg/dL (7.6-11.0); Carbon Dioxide 25.7 mmol/L (21.0-32.0); Chloride 106 mmol/L (98-108); Creatinine, Serum 1.67 mg/dL (0.70-1.20); EST Glomerular Filtration Rate 40 (>60); Glucose 90 mg/dL (70-99); Potassium 4.2 mmol/L (3.3-5.1); Sodium Level 141 mmol/L (133-145)
[2024-12-17 13:50] LABS: Microalbumin,Random Urine 45.3 mg/L (NO RANGE EST.); Microalbumin:Creatinine Ratio 765.2 mg/g CRE
== END | disposition home or self-care (01) ==
LOC: MFPLAB 10:50
PROVIDERS: PCP Family Medicine; Referring Provider Family Medicine; Visit Provider Family Medicine
DX: E11.9 Type 2 diabetes mellitus without complications (principal)
CPT/HCPCS: 36415; 80048; 82043; 82570

== ENCOUNTER → 2025-04-07 | Outpatient (CLI) | payer MEDICARE, SELFPAY ==
[2025-04-07 12:40] LABS: AST(SGOT) 18 U/L (<=37); Alanine Aminotransfer ALT/SGPT 17 U/L (<=46); Albumin, Serum 4.1 g/dL (3.4-4.8); Alkaline Phosphatase 67 U/L (40-129); Anion Gap 10 (5-15); BUN 28 mg/dL (4-19); BUN/Creat Ratio 15.9 RATIO (10-20); Calcium,Total 9.0 mg/dL (7.6-11.0); Carbon Dioxide 24.9 mmol/L (21.0-32.0); Chloride 107 mmol/L (98-108); Cholesterol 137 mg/dL (<=200); Globulin 2.3 g/dL (2.2-4.2); Glucose 116 mg/dL (70-99); Low Density Lipoprotein Calc. 76 mg/dL; Potassium 4.1 mmol/L (3.3-5.1); Triglycerides 104 mg/dL; Very Low Density Lipoprotein 21 mg/dL (5-40); cholesterol:hdl ratio screen 3.43
== END | disposition home or self-care (01) ==
LOC: MFPLAB 10:57
PROVIDERS: PCP Family Medicine; Visit Provider Family Medicine
DX: E11.9 Type 2 diabetes mellitus without complications (principal)
CPT/HCPCS: 36415; 80053; 80061; 83036

== ENCOUNTER → 2025-04-27 | Outpatient (CLI) | payer MEDICARE, SELFPAY ==
--- NOTE | 2025-04-27 10:52 | RAD_ITS ---
EXAM: XR Lumbosacral Spine, 4 or 5 Views CLINICAL INDICATION: PAIN TECHNIQUE: Frontal, lateral and bilateral oblique views of the lumbar spine. COMPARISON: No relevant prior studies available. FINDINGS: VERTEBRAE: Degenerative facet arthropathy throughout the lumbar spine, most prominent in the lower lumbar spine. Grade 1 retrolisthesis of L3 over L4 without change during flexion or extension. No acute fracture. SACRUM/COCCYX: Unremarkable as visualized. No acute fracture. DISC SPACES: Degenerative disc disease throughout the lumbar spine. SOFT TISSUES: Unremarkable. OTHER FINDINGS: No significant dynamic instability. RAD/L/S Spine w Bend Min 6 Vw IMPRESSION: 1. No acute fracture. 2. If symptoms persist, further evaluation with MRI is recommended. 3. No significant dynamic instability. 4. Degenerative changes lumbar spine as described. Reading Location: [id number]
--- NOTE | 2025-04-27 10:52 | RAD_ITS ---
EXAM: XR Lumbosacral Spine, 4 or 5 Views CLINICAL INDICATION: PAIN TECHNIQUE: Frontal, lateral and bilateral oblique views of the lumbar spine. COMPARISON: No relevant prior studies available. FINDINGS: [place]: Degenerative facet arthropathy throughout the lumbar spine, most prominent in the lower lumbar spine. Grade 1 retrolisthesis of L3 over L4 without change during flexion or extension. No acute fracture. SACRUM/COCCYX: Unremarkable as visualized. No acute fracture. DISC SPACES: Degenerative disc disease throughout the lumbar spine. SOFT TISSUES: Unremarkable. OTHER FINDINGS: No significant dynamic instability. RAD/L/S Spine w Bend Min 6 Vw IMPRESSION: 1. No acute fracture. 2. If symptoms persist, further evaluation with MRI is recommended. 3. No significant dynamic instability. 4. Degenerative changes lumbar spine as described. Reading Location: [id number]
== END | disposition home or self-care (01) ==
LOC: MTRAD 10:45
PROVIDERS: PCP Family Medicine; Referring Provider Anesthesiology Pain Medicine; Visit Provider Anesthesiology Pain Medicine
DX: M51.372 Other intervertebral disc degeneration, lumbosacral region with discogenic back pain and lower extremity pain (principal)
CPT/HCPCS: 72114

== ENCOUNTER → 2025-05-06 | Outpatient (CLI) | payer MEDICARE, SELFPAY ==
[2025-05-06 11:24] VITALS: PULSE 64; PULSE 68; PULSE 77; PULSE 84; PULSE 85; O2SAT 91; O2SAT 92; O2SAT 93
--- NOTE | 2025-05-07 10:34 | PCM.PSN.6M ---
PSN 6 Minute Walk Test 6 Minute Walk Test 6 Minute Walk Test: 6 Minute Walk Test PSN:6-Minute Walk Test Start: 05/06/25 11:23 Freq: Status: Active Protocol: [id number].6MINW Document 05/06/25 11:24 MAME (Rec: 05/06/25 11:26 RUBION [id number]) 6 Minute Walk Test Date Performed 05/06/25 Time Performed 11:15 Height 5 ft 8 in Weight: 170 lb Weight in Pounds 170.[address]: Manisha Gonzalez Assistive device None used: Pre-test Oxygen Delivery Room Air Method Pulse Ox (%) 91 Pulse Rate (60-100 64 beats/min) Dyspnea Neo Scale ( 0 0-10) Exertion Neo Scale 6 (6-20) 1st minute Oxygen Delivery Room Air Method Pulse Ox (%) 93 Pulse Rate (60-100 77 beats/min) 2nd minute Oxygen Delivery Room Air Method Pulse Ox (%) 91 Pulse Rate (60-100 84 beats/min) 3rd minute Oxygen Delivery Room Air Method Pulse Ox (%) 91 Pulse Rate (60-100 84 beats/min) 4th minute Oxygen Delivery Room Air Method Pulse Ox (%) 92 Pulse Rate (60-100 85 beats/min) 5th minute Oxygen Delivery Room Air Method Pulse Ox (%) 92 Pulse Rate (60-100 84 beats/min) 6th minute Oxygen Delivery Room Air Method Pulse Ox (%) 93 Pulse Rate (60-100 85 beats/min) Dyspnea Neo Scale ( 2 0-10) Exertion Neo Scale 12 (6-20) Post-test Oxygen Delivery Room Air Method Pulse Ox (%) 93 Pulse Rate (60-100 68 beats/min) Full Laps Walked 17 Partial Lap, Number 47 of Tiles Walked Total Distance 1050 Walked (ft) Interpretation Interpretation: The patient ambulated 1050 feet over the course of 6 minutes beginning on room air without assistive devices. Pretesting oxygen saturation was noted to be 91% on room air. With ambulation, the tram oxygen saturation was 91%. There was no significant exertional oxygen desaturation. Recommendations Recommendations: There is no indication for the use of supplemental oxygen at this time.
== END | disposition home or self-care (01) ==
LOC: PSN 11:09
PROVIDERS: PCP Family Medicine; Referring Provider Nurse Practitioner Family; Visit Provider Nurse Practitioner Family
DX: R06.00 Dyspnea, unspecified (principal)
CPT/HCPCS: 94618

== ENCOUNTER → 2025-07-08 | Outpatient (CLI) | payer MEDICARE, SELFPAY ==
[2025-07-08 16:05] LABS: Anion Gap 10 (5-15); BUN 31 mg/dL (4-19); BUN/Creat Ratio 16.6 RATIO (10-20); Calcium,Total 9.0 mg/dL (7.6-11.0); Carbon Dioxide 25.9 mmol/L (21.0-32.0); Chloride 105 mmol/L (98-108); Glucose 107 mg/dL (70-99); Potassium 4.5 mmol/L (3.3-5.1)
== END | disposition home or self-care (01) ==
LOC: MFPLAB 11:31
PROVIDERS: PCP Family Medicine; Visit Provider Family Medicine
DX: E11.9 Type 2 diabetes mellitus without complications (principal)
CPT/HCPCS: 36415; 80048